=== PATIENT | female | born 1950 | race Caucasian/White ===

== ENCOUNTER 2025-02-04 13:44 | Inpatient (IN) | payer MEDICARE, SELFPAY ==
[2025-02-04] VITALS (19 sets, daily range): BP systolic 119–173; BP diastolic 65–81; PULSE 80–103; RESP 18–37; TEMP 36.7; O2SAT 91–100; BMI 34.1
--- NOTE | ~2025-02-04 | XR_ITS ---
EXAMINATION: XR chest 1V portable DATE: 02/04/2025 15:25 INDICATION: Chest pain TECHNIQUE: frontal view of the chest was obtained. COMPARISON: None FINDINGS: Streaky opacities in the infrahilar left lower lung zone with appearance favoring atelectasis over pneumonia. Remainder the lungs are clear. No pulmonary edema, pleural effusion or pneumothorax. Heart size is normal. Moderate thoracic dextroscoliosis with moderate spondylosis. Anchoring screw at the left humeral head. IMPRESSION: 1. Streaky left infrahilar opacities and favor atelectasis over pneumonia. Reviewed, dictated and finalized at location A. AIL DRIVER
--- NOTE | ~2025-02-04 | US_ITS ---
ULTRASOUND ABDOMEN LIMITED (RIGHT UPPER QUADRANT) Clinical History: hemorrhagic cholecystitis Comparison: CT abdomen pelvis one day prior Technique: Right upper quadrant sonography Findings: Liver: Normal size. Normal echotexture. No intrahepatic biliary ductal dilatation. Normal hepatopedal flow main portal vein. Common Duct: Normal caliber. 4 mm. Gallbladder: Prominent. Filled with heterogeneous material No stones. Wall thickening. No pericholecystic fluid. Positive sonographic Thornton's sign. Pancreas: Obscured by bowel gas. IMPRESSION: 1. Gallbladder slightly dilated and filled with probable hemorrhage. Underlying lesion cannot be excluded. 2. Probable cholecystitis. Reviewed, dictated and finalized at location R. T SORTER IMPRESSION: 1. Gallbladder slightly dilated and filled with probable hemorrhage. Underlyin g lesion cannot be excluded. 2. Probable cholecystitis.
--- NOTE | ~2025-02-04 | CT_ITS ---
EXAMINATION: CT abdomen without contrast: DATE: 02/12/2025. INDICATION: Right upper quadrant pain. History of cholecystitis, status postcholecystectomy. TECHNIQUE: CT was performed without contrast and multiplanar imaging were obtained. COMPARISON: MRCP dated 02/04/2025. Ultrasound abdomen dated 02/05/2025, CT dated 02/04/2025. FINDINGS: Lung bases shows moderate size pleural effusion on the right side. No focal lesions of liver and spleen. Postsurgical changes of cholecystectomy with collection of fluid. The surgical bed suggestive of seroma. No well- circumscribed abscess. No evidence acute findings of the pancreas. No free fluid in the upper peritoneal cavity. IMPRESSION: 1. Limited noncontrast examination is not optimal to evaluate vascular structures and solid viscera. 2. Postsurgical changes of recent cholecystectomy. Ill-defined 4 to 5 cm size collection of fluid at the surgical bed, likely representing postsurgical seroma. No evidence of well-circumscribed abscess. No free fluid or free air in the upper peritoneal cavity. 3. Moderate size right pleural effusion. Reviewed, dictated and finalized at location T. RT EXPORT MANAGER IMPRESSION: 1. Limited noncontrast examination is not optimal to evaluate vascular structur es and solid viscera. 2. Postsurgical changes of recent cholecystectomy. Ill-defined 4 to 5 cm size c ollection of fluid at the surgical bed, likely representing postsurgical seroma . No evidence of well-circumscribed abscess. No free fluid or free air in the u pper peritoneal cavity. 3. Moderate size right pleural effusion.
--- NOTE | ~2025-02-04 | MR_ITS ---
EXAMINATION: MR MRCP wo/w con/w 3D wo ind DATE: 02/06/2025 11:54 INDICATION: Hemorrhagic cholecystitis. TECHNIQUE: Magnetic resonance imaging (MRI) of the abdomen was performed without and with 20 mL Multihance intravenous contrast. Sequences included coronal T2- weighted SS-FSE, coronal T2-weighted FS SS-FSE, coronal T2-weighted FS FIESTA, axial T2-weighted FS FIESTA, axial T2-weighted FIESTA, sagittal T2-weighted SS- FSE, axial T1-weighted dual-echo FSPGR, axial T2-weighted SS-FSE, axial T1- weighted LAVA, axial T2-weighted STIR FSE. Thick-slab T2-weighted FRFSE-XL images were obtained for magnetic resonance cholangiopancreatography (MRCP). Rotating maximum intensity projection 3-D reconstructions of the volumetric data were created by the technologist. Postcontrast sequences included a time course of axial T1-weighted LAVA. COMPARISON: CT dated 02/04/2025 and ultrasound dated 02/05/2025 FINDINGS: ABDOMEN MRI: Small right and very small left pleural effusions with dependent consolidation in both lower lobes with heterogeneous parenchymal enhancement and fibular atelectasis over pneumonia. Mild cardiomegaly. No pericardial effusion. Diffuse periportal edema in the liver along with small amount of perihepatic ascites. There is mild mesenteric edema and upper abdominal body wall edema. The gallbladder is dilated and contains heterogeneous pattern of mixed regions of low T1 and low T2 signal and high T1 and high T2 signal likely representing combination of bile, sludge and blood. There is small amount of surrounding pericholecystic fluid also with high T1 and low T2 signal also consistent with blood. No photopenic gallstones identified. Spleen, pancreas, bilateral adrenal glands and kidneys are normal. Bowels are unremarkable with no obstruction. No pathologically enlarged abdominal lymphadenopathy. 45 degrees thoracolumbar levoscoliosis with moderate to severe spondylosis. ABDOMEN MRCP: No intrahepatic biliary ductal dilation. Common bile duct is normal measuring up to 3 mm in maximal diameter. No filling defects to suggest choledocholithiasis. Main pancreatic duct is also normal in caliber. IMPRESSION: 1. T1 hyperintense likely blood within and surrounding the gallbladder consistent with likely hemorrhagic cholecystitis. No evident cholelithiasis/choledocholithiasis or biliary ductal dilation. 2. Small right and very small left pleural effusions with dependent atelectasis in the bilateral lower lobes. 3. Cardiomegaly. Reviewed, dictated and finalized at location A. SETTER IMPRESSION: 1. T1 hyperintense likely blood within and surrounding the gallbladder consiste nt with likely hemorrhagic cholecystitis. No evident cholelithiasis/choledochol ithiasis or biliary ductal dilation. 2. Small right and very small left pleural effusions with dependent atelectasis in the bilateral lower lobes. 3. Cardiomegaly.
--- NOTE | ~2025-02-04 | CT_ITS ---
EXAMINATION: CT abdomen pelvis w con DATE: 02/04/2025 15:43 INDICATION: Abdominal pain TECHNIQUE: Computed tomography (CT) of the abdomen and pelvis was performed with 100 mL Omnipaque-350 intravenous contrast. Automated exposure control and iterative reconstruction technique were employed. The dose-length product was 996.38 mGy-cm. COMPARISON: None FINDINGS: Very small posterior layering right pleural effusion. Mild atelectasis at the bilateral lung bases. Mild cardiomegaly. Atherosclerotic coronary artery calcific location. No pericardial effusion. Calcified paraesophageal lymph nodes consistent with old granulomatous disease. Potentially refluxed fluid in the distal esophagus. Liver is normal. Stranding surrounding the gallbladder and in the antoni hepatis with heterogeneous high attenuation material within the gallbladder which could represent sludge and/or hemorrhage. Within the gallbladder lumen there is a small amount of serpiginous intraluminal active contrast extravasation. Small of high attenuation material consistent with extraluminal hemorrhage surrounding the gallbladder without evident active contrast extravasation. Small amount of low-attenuation perihepatic ascites with additional small amount of low- attenuation ascites in the deep pelvis. Spleen, pancreas, bilateral adrenal glands and kidneys are normal. Moderate sigmoid diverticulosis without adjacent inflammatory stranding to suggest diverticulitis. No bowel obstruction. Metallic streak artifact associated with bilateral total hip arthroplasties which obscures portions of the bladder and anteverted uterus. 40 degrees thoracolumbar levoscoliosis with severe spondylosis. IMPRESSION: 1. Likely hemorrhagic cholecystitis with intraluminal active contrast extravasation and both intraluminal and pericholecystic hemorrhage. 2. Diverticulosis. Reviewed, dictated and finalized at location A. RIAL ASSISTANT IMPRESSION: 1. Likely hemorrhagic cholecystitis with intraluminal active contrast extravasa tion and both intraluminal and pericholecystic hemorrhage. 2. Diverticulosis.
--- NOTE | ~2025-02-04 | XR_ITS ---
EXAMINATION: XR chest 1V portable COMPARISON: No comparisons available. HISTORY: sob FINDINGS: Small left basilar infiltrate and effusion, moderate right basilar infiltrate and effusion. No pneumothorax. Moderate cardiomegaly. Mediastinal and hilar contours are within normal limits. Bony thorax no acute abnormality. Miscellaneous: None Impression: Bilateral pneumonia Reviewed, dictated and finalized at location P. NISTRATIVE LIBRARY ASSISTANT Impression: Bilateral pneumonia
--- NOTE | ~2025-02-04 | XR_ITS ---
EXAMINATION: XR chest 1V portable COMPARISON: No comparisons available. HISTORY: shortness of breath FINDINGS: Small left basilar infiltrate and effusion. Moderate right basilar infiltrate and effusion. No pneumothorax. Moderate cardiomegaly. Mediastinal and hilar contours are within normal limits. Dextroconvex scoliosis of the thoracic spine. Miscellaneous: None Impression: CHF. Superimposed probable pneumonia. The findings appear improved compared to the previous study Reviewed, dictated and finalized at location P. ERVATION TECHNICIAN Impression: CHF. Superimposed probable pneumonia. The findings appear improved compared to the previous study
--- NOTE | ~2025-02-04 | XR_ITS ---
EXAMINATION: XR chest 1V portable DATE: 02/06/2025 18:02 INDICATION: Wheezing. TECHNIQUE: A single frontal view of the chest was obtained. COMPARISON: Chest x-ray dated 02/04/2025 FINDINGS: Severe scoliosis of the spine. Lungs do not show acute abnormalities or focal nature. Minimal blunting of costophrenic angles suggests minimal pleural effusion on both sides. IMPRESSION: 1. No focal pulmonary lesions. Minimal blunting of costophrenic angle suggestive of minimal bilateral pleural effusion. 2. Severe scoliosis of the spine. Reviewed, dictated and finalized at location T. MENTAL BRONZE WORKER IMPRESSION: 1. No focal pulmonary lesions. Minimal blunting of costophrenic angle suggestiv e of minimal bilateral pleural effusion. 2. Severe scoliosis of the spine.
--- NOTE | ~2025-02-04 | XR_ITS ---
EXAMINATION: Abdomen AP, portable, supine: DATE: 02/08/2025. INDICATION: Rule out obstruction. TECHNIQUE: Supine AP view of the abdomen. were obtained. COMPARISON: CT scan dated 02/04/2025. FINDINGS: Severe scoliosis of thoracolumbar spine. No plain radiographic evidence of mechanical bowel obstruction or supine film. Postoperative changes of cholecystectomy. IMPRESSION: 1. Postsurgical changes of cholecystectomy. No radiographic evidence of mechanical bowel obstruction. 2. Severe scoliosis. Reviewed, dictated and finalized at location T. RMATION SYSTEMS SECURITY DEVELOPER IMPRESSION: 1. Postsurgical changes of cholecystectomy. No radiographic evidence of mechani radha bowel obstruction. 2. Severe scoliosis.
[2025-02-04] MEDS: SODIUM CHLORIDE 0.9% IV 1,000 ML 999 ML IV CONT ×2 (15:17→16:19)
[2025-02-04] MEDS: ONDANSETRON INJ 4 MG/2 ML VIAL IV PUSH ×2 (15:18→16:19)
[2025-02-04] MEDS: HYDROmorphone HCL INJ (*CRX) 1 MG/ML SYR 0.5 MG IV PUSH ×3 (15:19→22:08)
[2025-02-04 15:22] LABS: Hematocrit 43.9 % (37.0-47.0); Hemoglobin 14.6 g/dL (12.0-15.0); Immature Granulocyte Percent A 0.3 % (0-0.5); Lymphocytes Absolute Auto 0.78 K/mm3 (0.9-3.2); Mean Corpuscular HGB Conc 33.3 g/dl (32-36); Mean Corpuscular Hemoglobin 30.7 pg (26-34); Mean Corpuscular Volume 92.4 fl (80-100); Nucleated Red Blood Cells Absolute Auto 0.000 K/mm3 (0.0-0.012); Nucleated Red Blood Cells Perc 0.0 % (0.0-0.2); Platelet Count Result 274 k/mm3 (150-375); Red Blood Count 4.75 M/mm3 (4.2-5.4); White Blood Count 18.3 K/mm3 (4.5-10.0)
[2025-02-04 15:35] LABS: INR 1.4; Partial Thromboplastin Time 26.4 Seconds (22.3-36.8); Prothrombin Time 17.1 Seconds (11.1-14.7)
[2025-02-04 15:37] LABS: Alanine Aminotransferase 34 U/L (6-35); Albumin Level 4.5 g/dL (3.5-5.1); Alkaline Phosphatase 134 U/L (38-126); Anion Gap 10 mmol/L (4-12); Aspartate Amino Transferase 151 U/L (14-36); Bilirubin,Total 2.7 mg/dL (0.2-1.3); Blood Urea Nitrogen 12 mg/dL (7-17); Calcium 9.1 mg/dL (8.4-10.2); Carbon Dioxide 24 mmol/L (22-30); Chloride 101 mmol/L (98-107); Estimated CRCL calculation 76 ml/min; Estimated Glomerular Filt Rate > 60; Glucose 152 mg/dL (65-110); Lipase 58 U/L (23-300); Potassium 4.2 mmol/L (3.4-5.0); Sodium 135 mmol/L (137-145); Total Protein 8.1 g/dL (6.3-8.2)
[2025-02-04 15:49] LABS: NT Pro B Type Natriuretic Pept 1940 pg/mL (19.9-100); Troponin I 0.037 ng/mL (0.000-0.034)
--- NOTE | 2025-02-04 15:50 | ECG_ITS ---
Test Date: 2025-02-04 15:55:38 Measurements Intervals [place] Rate: 92 P: 152 [place]: 155 QRS: -25 QRSD: 101 T: -15 QT: 368 QTc: 457 Interpretive Statements SINUS RHYTHM WITH OCCASIONAL SUPRAVENTRICULAR PREMATURE COMPLEXES POSSIBLE LEFT ATRIAL ENLARGEMENT POSSIBLE ANTERIOR MYOCARDIAL INFARCTION , OF INDETERMINATE AGE Electronically Signed On 02-04-2025 20:03:58 COORDINATOR OF LIBRARY SERVICES by Adrian Early D.O
--- NOTE | 2025-02-04 16:07 | ED.ABDPAIN ---
HPI - Abdominal Pain General Chief Complaint: Back Pain/Injury Stated Complaint: back/abdominal pain Time Seen by Provider: 02/04/25 16:25 Source: patient, family and EMS Mode of arrival: EMS Limitations: no limitations History of Present Illness HPI narrative: 74 years old white female came to the ED by ambulance from home complaining of severe back pain bilaterally above the level of the waist old way to the shoulders sharp, started last night. Patient denies aggravating or relieving factors, associated with nausea and frequent vomiting. Hours later started having diffuse abdominal pain which is sharp. No aggravating or relieving factors. Patient could not be this morning or take her morning medication. History of hyperlipidemia, atrial fibrillation on Xarelto, denies history of abdominal surgery area she denies smoking or drinking or using drugs. Related Data Home Medications ?Medication ?Instructions ?Recorded ?Confirmed ?Last Taken ?Type atorvastatin 10 mg tablet 10 mg PO DAILY 02/04/25 02/04/25 Unknown History carbidopa 25 mg-levodopa 100 mg 1.5 tablet PO QID 02/04/25 02/04/25 02/03/25 History tablet cholecalciferol (vitamin D3) 50 2,000 unit PO DAILY 02/04/25 02/04/25 02/03/25 History mcg (2,000 unit) tablet (D3 DOTS) diltiazem HCl 120 mg tablet 120 mg PO DAILY 02/04/25 02/04/25 02/04/25 History escitalopram oxalate 20 mg tablet 20 mg PO DAILY 02/04/25 02/04/25 Unknown History methylphenidate HCl 36 mg 36 mg PO .every morning 02/04/25 02/04/25 Unknown History tablet,extended release 24 hr metoprolol succinate 200 mg 200 mg PO DAILY 02/04/25 02/04/25 02/04/25 History tablet,extended release 24 hr multivitamin-ferrous 1 tablet PO DAILY 02/04/25 02/04/25 Unknown History fumarate-folic acid 18 mg-400 mcg tablet (Centrum Women) rivaroxaban 20 mg tablet (Xarelto) 20 mg PO Q24H 02/04/25 02/04/25 02/04/25 History Allergies Allergy/AdvReac Type Severity Reaction Status Date / Time No Known Allergies Allergy Verified 02/04/25 21:35 Review of Systems Review of Systems: All systems reviewed & are unremarkable except as noted in HPI and below PMFSH Social History Social History Smoking status: Never smoker Alcohol intake: never Substance use: never Lack of Transportation: No Lack of Food: Never True Current Housing: I Have Housing Concerned About Future Housing: No Difficulty Paying Gas/Electric Bills: No Difficulty Paying for Meds: No Currently Unemployed: No Education: Master's Degree or Higher Difficulty w/ Childcare or Family Care: No Spiritual care concerns: No Exam Narrative: General appearance: Well-developed, well-nourished Skin: Normal color Head: Normocephalic, nontraumatic Eyes: Clear conjunctiva ENT: Oropharynx normal, ears normal, nose normal Neck: Supple, nontender Chest and respiratory: Airway patent, no respiratory distress, no accessory muscle use Heart: Regular rate/rhythm Abdomen: Diffuse abdominal tenderness, positive guarding, rebound, quite bowel sounds Vascular: Normal peripheral pulses, normal capillary refill. Musculoskeletal: Normal range of motion, nontender back Neurologic: Alert and oriented ?3, HEALTH INSPECTOR FOOD is normal as tested, no gross motor deficit Course Consultations Consultation #1: DR GAO Date: 02/04/25 Time: 16:59 Vital Signs Vital signs: Vital Signs Temperature 36.7 C 02/04/25 13:42 Pulse Rate 97 02/04/25 13:42 Respiratory Rate 30 H 02/04/25 13:42 Blood Pressure 151/76 H 02/04/25 13:42 Pulse Oximetry 94 02/04/25 13:42 Oxygen Delivery Room Air 02/04/25 13:42 Temperature 36.7 C 02/04/25 13:42 Pulse Rate 85 02/04/25 22:00 Respiratory Rate 25 H 02/04/25 21:18 Blood Pressure 128/70 02/04/25 21:18 Pulse Oximetry 98 02/04/25 21:18 Oxygen Delivery Nasal Cannula 02/04/25 16:30 Oxygen Flow Rate 2 02/04/25 16:30 MDM - Abdominal Pain MDM Narrative Medical decision making narrative: Patient presents with back pain and abdominal pain Vital signs showing respiratory rate 30 per minute otherwise within normal limit Physical examination consistent with diffuse generalized abdominal tenderness, patient looks L Differential diagnosis include musculoskeletal pain, cholecystitis, appendicitis, diverticulitis, colitis, small-bowel obstruction, urinary tract infection Blood workup today includes CBC, CMP, lipase, lactic acid, pro BMP, coags showed WBC 18.3, PT 17.1 chest the lactic acid 3.2, troponin 0.037, proBNP 1940, total bilirubin 2.7, AST 151, alkaline phosphatase 134 otherwise within normal limit EKG showed normal sinus rhythm physical PVCs he Chest x-ray showed atelectasis versus pneumonia CT abdomen and pelvis with IV contrast showed hemorrhage cholecystitis Zosyn IV started Patient received 2 L of normal saline IV, Dilaudid 0.5 mg x2 and Zofran 4 mg IV x2 Admit to hospitalist, discussed with the surgeon Differential Diagnosis Differential diagnosis: Likely other (As above) Medical Records Attestation: I reviewed the patient's medical records. Lab Data Attestation: I reviewed the patient's lab results. 02/04/25 15:13 02/04/25 15:13 Labs: Lab Results 02/04/25 02/04/25 02/04/25 Range/Units 15:13 15:13 15:13 WBC 18.3 H (4.5-10.0) K/mm3 RBC 4.75 (4.2-5.4) M/mm3 Hgb 14.6 (12.0-15.0) g/dL Hct 43.9 (37.0-47.0) % MCV 92.4 (80-100) fl MCH 30.7 (26-34) pg MCHC 33.3 (32-36) g/dl RDW 13.4 (11.5-14.5) % Plt Count 274 (150-375) k/mm3 MPV 9.3 (7.4-10.4) fl Immature Gran % (Auto) 0.3 (0-0.5) % Neut % (Auto) 87.6 H (45.5-73.1) % Lymph % (Auto) 4.3 L (18.3-44.2) % [place] % (Auto) 7.6 (2.6-8.5) % Eos % (Auto) 0.0 (0-4.4) % Baso % (Auto) 0.2 (0.2-1.2) % Lymph # (Auto) 0.78 L (0.9-3.2) K/mm3 [place] # (Auto) 1.4 H (0.1-0.6) K/mm3 Eos # (Auto) 0.0 (0-0.3) K/mm3 Baso # (Auto) 0.0 (0.0-0.1) K/mm3 Abs Immat Gran (auto) 0.06 H (0.00-0.031) K/mm3 Absolute Neuts (auto) 16.0 H (1.3-6.7) K/mm3 Absolute Nucleated RBC 0.000 (0.0-0.012) K/mm3 Nucleated RBC % 0.0 (0.0-0.2) % PT 17.1 H (11.1-14.7) Seconds INR 1.4 APTT 26.4 (22.3-36.8) Seconds Sodium 135 L (137-145) mmol/L Potassium 4.2 (3.4-5.0) mmol/L Chloride 101 (98-107) mmol/L Carbon Dioxide 24 (22-30) mmol/L Anion Gap 10 (4-12) mmol/L BUN 12 (7-17) mg/dL Creatinine 0.63 L (0.7-1.0) mg/dL Estim Creat Clear Calc 76 ml/min Estimated GFR > 60 (59 - ) Glucose 152 H (65-110) mg/dL Lactic Acid 3.2 H (0.7-2.0) mmol/L Calcium 9.1 (8.4-10.2) mg/dL Total Bilirubin 2.7 H (0.2-1.3) mg/dL AST 151 H (14-36) U/L ALT 34 (6-35) U/L Alkaline Phosphatase 134 H (38-126) U/L Troponin I 0.037 H* Cancelled (0.000-0.034) ng/mL NT-Pro-B Natriuret Pep 1940 H Cancelled (19.9-100) pg/mL Total Protein 8.1 (6.3-8.2) g/dL Albumin 4.5 (3.5-5.1) g/dL Lipase 58 (23-300) U/L Imaging Data Radiologist's impression: ITS Impressions Chest X-Ray 02/04/25 15:27 IMPRESSION: 1. Streaky left infrahilar opacities and favor atelectasis over pneumonia. Abdomen/Pelvis CT 02/04/25 15:44 IMPRESSION: 1. Likely hemorrhagic cholecystitis with intraluminal active contrast extravasation and both intraluminal and pericholecystic hemorrhage. 2. Diverticulosis. ECG Data EKG #1: Attestation: I personally reviewed and interpreted this ECG as follows: ECG completion date: 02/04/25 Interpretation: Normal sinus rhythm at 92 beats per minute with occasional PVCs, left atrial enlargement, anterior myocardial infarction of indeterminate age, no previous EKG available for comparison. Critical Care Time Critical Care Time Critical Care Time: Yes Total Critical Care Time: 30 Discharge Plan Discharge Clinical Impression: Acute cholecystitis, Elevated troponin Patient Disposition: Still a Patient Condition: Stable
[2025-02-04] MEDS: PIPERACILLIN/TAZOBACTAM SOD 3.375 GM in SODIUM CHLORIDE 0.9% IV 50 ML 100 ML IVPB ×2 (16:23→23:40)
--- NOTE | 2025-02-04 16:38 | PC.NURSE ---
per EDP no blood cultures are needed
--- NOTE | 2025-02-04 18:06 | ECG_ITS ---
Test Date: 2025-02-04 18:17:58 Measurements Intervals [place] Rate: 88 P: 54 [place]: 168 QRS: -11 QRSD: 100 T: 13 QT: 364 QTc: 442 Interpretive Statements SINUS RHYTHM LEFT ATRIAL ENLARGEMENT POSSIBLE ANTERIOR MYOCARDIAL INFARCTION , OF INDETERMINATE AGE Electronically Signed On 02-04-2025 20:06:19 RECLAMATION SUPERVISOR by Adrian Early D.O
[2025-02-04] MEDS: SODIUM CHLORIDE 0.9% IV 1,000 ML 150 ML IV CONT (18:23)
[2025-02-04 18:47] LABS: Troponin I 0.030 ng/mL (0.000-0.034)
--- NOTE | 2025-02-04 20:59 | WPCEDHO ---
ED Hand Off Checklist All vitals saved: Yes IV Site documented: Yes All med administrations documented: Yes Triage Note Triage Note pt to ED from home via 02/04/25 13:42 [facility] for c/o back pain, abdominal pain, and L rib pain. EMS reports the back pain started last night that radiates to her abdomen. pt also c/o L rib pain, pt c/o SOB, that radiates across her abdomen. pt also c/o N /V. EMS gave 50mcg of fentanyl IM . EMS got a BG of 129. EMS reports VSS. pt is A&OX4 Allergies No Known Allergies Allergy (Verified 02/04/25 13:56) Active Medications including assessments/comments Sodium Chloride (Normal Saline Iv) 1,000 mls @ 150 mls/hr IV CONT .Q6H40M [facility] Last Admin: 02/04/25 18:23 Dose: 150 mls/hr Documented By: SOFY Infusion/Titration Document 02/04/25 18:23 SOFY (Rec: 02/04/25 18:23 SOFY [id number]) Intake IV Site Peripheral Access Right Forearm Container Volume 1,000 Waste Amount 0 Dosing Infusion Rate 150 Cumulative Dose Not Applicable Increase/Decrease Started Elapsed Time Elapsed Time ( 0m minutes) Administered/Completed Medications Discontinued Medications Hydromorphone HCl (Hydromorphone Hcl Inj (*Crx) 1 Mg/Ml Syr) 0.5 mg IV PUSH ONCE STA Stop: 02/04/25 15:01 Last Admin: 02/04/25 15:19 Dose: 0.5 mg Documented By: SOFY Hydromorphone HCl (Hydromorphone Hcl Inj (*Crx) 1 Mg/Ml Syr) 0.5 mg IV PUSH ONCE STA Stop: 02/04/25 16:09 Last Admin: 02/04/25 16:21 Dose: 0.5 mg Documented By: SOFY Sodium Chloride (Normal Saline Iv) 1,000 mls @ 999 mls/hr IV CONT .Q1H1M STA Stop: 02/04/25 16:00 Last Infusion: 02/04/25 16:18 Dose: Infused Documented By: Admin: 02/04/25 15:17 Dose: 999 mls/hr Documented By: SOFY Piperacillin Sod/Tazobactam (Sod 3.375 gm/ Sodium Chloride) 50 mls @ 100 mls/hr IVPB ONCE ONE Stop: 02/04/25 16:44 Last Infusion: 02/04/25 16:53 Dose: Infused Documented By: Admin: 02/04/25 16:23 Dose: 100 mls/hr Documented By: SOFY Sodium Chloride (Normal Saline Iv) 1,000 mls @ 999 mls/hr IV CONT .Q1H1M STA Stop: 02/04/25 17:11 Last Infusion: 02/04/25 17:03 Dose: Infused Documented By: Admin: 02/04/25 16:19 Dose: 999 mls/hr Documented By: SOFY Ondansetron HCl (Ondansetron Inj 4 Mg/2 Ml Vial) 4 mg IV PUSH ONCE STA Stop: 02/04/25 15:01 Last Admin: 02/04/25 15:18 Dose: 4 mg Documented By: SOFY Ondansetron HCl (Ondansetron Inj 4 Mg/2 Ml Vial) 4 mg IV PUSH ONCE STA Stop: 02/04/25 16:09 Last Admin: 02/04/25 16:19 Dose: 4 mg Documented By: SOFY Notes 02/04/25 16:38 Nurse Note by Chrissy Ballesteros per EDP no blood cultures are needed Initialized on 02/04/25 16:38 - END OF NOTE Interventions/Assessments IV / Saline Lock, Insert Start: 02/04/25 15:00 Freq: STAT Status: Active Protocol: Document 02/04/25 15:16 SOFY (Rec: 02/04/25 15:17 SOFY [id number]) IV Assessment Peripheral Access Right Forearm IV Catheter Access Initiated IV Insertion Date 02/04/25 IV Insertion Time 15:17 Catheter Gauge 20 IV Insertion 2 Attempts Ultrasound Used for No Placement IV Site Assessment WNL IV Care and WNL Maintenance PA: Musculoskeletal Assessment Start: 02/04/25 13:39 Freq: Status: Active Protocol: Document 02/04/25 15:22 SOFY (Rec: 02/04/25 15:22 SOFY [id number]) Musculoskeletal Assessment Back Musculoskeletal Joint Pain With Movement,Muscle Pain,Muscle Pain With Symptoms Movement Limb Description Normal Range of Motion Limited Range of Motion Last Vital Signs Temperature 98.1 F 02/04/25 13:42 Pulse Rate 92 02/04/25 20:15 Respiratory Rate 24 H 02/04/25 20:15 Pulse Oximetry 98 02/04/25 20:15 Blood Pressure 119/81 02/04/25 20:15 Blood Pressure Mean 93 02/04/25 20:15 Blood Pressure Position Supine 02/04/25 18:22 Oxygen Delivery Nasal Cannula 02/04/25 16:30 Oxygen Flow Rate 2 02/04/25 16:30 Weight 97.7 kg 02/04/25 13:42 Last Result - Abnormals Only WBC 18.3 K/mm3 (4.5-10.0) H 02/04/25 15:13 Neut % (Auto) 87.6 % (45.5-73.1) H 02/04/25 15:13 Lymph % (Auto) 4.3 % (18.3-44.2) L 02/04/25 15:13 Lymph # (Auto) 0.78 K/mm3 (0.9-3.2) L 02/04/25 15:13 [place] # (Auto) 1.4 K/mm3 (0.1-0.6) H 02/04/25 15:13 Abs Immat Gran (auto) 0.06 K/mm3 (0.00-0.031) H 02/04/25 15:13 Absolute Neuts (auto) 16.0 K/mm3 (1.3-6.7) H 02/04/25 15:13 PT 17.1 Seconds (11.1-14.7) H 02/04/25 15:13 Sodium 135 mmol/L (137-145) L 02/04/25 15:13 Creatinine 0.63 mg/dL (0.7-1.0) L 02/04/25 15:13 Glucose 152 mg/dL (65-110) H 02/04/25 15:13 Lactic Acid 3.2 mmol/L (0.7-2.0) H 02/04/25 15:13 Total Bilirubin 2.7 mg/dL (0.2-1.3) H 02/04/25 15:13 AST 151 U/L (14-36) H 02/04/25 15:13 Alkaline Phosphatase 134 U/L (38-126) H 02/04/25 15:13 Troponin I 0.037 ng/mL (0.000-0.034) H* 02/04/25 15:13 NT-Pro-B Natriuret Pep 1940 pg/mL (19.9-100) H 02/04/25 15:13 Most Recent Suicide Severity Rating Suicide Severity Rating NO RISK INDICATED 02/04/25 13:42
--- NOTE | 2025-02-04 21:34 | ADMIMU ---
This patient, Natalya De La Rosa, was admitted to IMU status, and placed in IMU Room 232-01 at 2130. Patient oriented to hospital policies and general routines including ID bracelet, bed and alarms, visiting hours, pain management, procedures, bathroom and other care routines, personal items, smoking policy, room service/diet, and visiting hours. Valuables list has been completed. Information on how to activate the Rapid Response Team has been discussed. Patient/Family are encouraged to report perceived risks to care and to ask questions if they do not understand what they are told or what they should do.
[2025-02-04 22:06] LABS: Troponin I 0.024 ng/mL (0.000-0.034)
[2025-02-05] VITALS (21 sets, daily range): BP systolic 107–135; BP diastolic 52–99; PULSE 69–125; RESP 19–24; TEMP 36.3–37.1; O2SAT 89–93
--- OUTSIDE RECORDS SUMMARY | 2025-02-05 01:53 | XMS_ITS | Clinical Summary ---
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 Held from 10/27/11 - can reconsider based on future arrhythmia history if needed to restart. 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 Held from 10/27/11 - can reconsider based on future arrhythmia history if needed to restart. 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 Held from 10/27/11 - can reconsider based on future arrhythmia history if needed to restart. 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 Held from 10/27/11 - can reconsider based on future arrhythmia history if needed to restart. 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 Held from 10/27/11 - can reconsider based on future arrhythmia history if needed to restart. 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 Held from 10/27/11 - can reconsider based on future arrhythmia history if needed to restart. Medications carbidopa-levodo pa (SINEMET) 25-100 mg per tablet Take 1 tablet by mouth 4 times daily. Pt takes TID, written for QID Active docusate 100 mg capsule Take 100 mg by mouth 2 times daily as needed. Active aspirin 81 mg enteric coated tablet Take 81 mg by mouth daily. Active modafinil 200 mg tablet Take 400 mg by mouth daily. Active vortioxetine (TRINTELLIX) 20 mg tablet Take 20 mg by mouth every 72 hours. Active buPROPion HCl (WELLBUTRIN XL) 150 mg extended-release tablet (24 hour) Take 150 mg by mouth every morning. With the 300 mg tablet for a total of 450 mg Active buPROPion HCl (WELLBUTRIN XL) 300 mg extended-release tablet (24 hour) Take 300 mg by mouth every morning. With the 150 mg tablet. For a total of 450 mg Active cholecalciferol (VITAMIN D3) 25 mcg (1,000 unit) capsule Take 25 mcg by mouth daily. Active dilTIAZem (CARDIZEM CD) 180 mg extended release capsule (24 hour) Take 180 mg by mouth daily. Active metoPROLol succinate 100 mg extended release tablet Take 150 mg by mouth daily. Active famotidine (PEPCID PO) Take 1 tablet by mouth daily as needed. Active enoxaparin 40 mg/0.4 mL injection syringe Inject 40 mg subcutaneously. Active omeprazole (PriLOSEC) 40 mg delayed release capsule Take 40 mg by mouth daily. Active ondansetron PO Activ e sennosides 8.6 mg tablet Take 1 tablet by mouth 2 times daily. Active amoxicillin (AMOXIL) 500 mg capsuleIndicatio ns:prophylactic antibiotic Take 4 capsules (2,000 mg total) by mouth once for 1 dose. Take 30-60 minutes before dental or other procedures 4 capsule 11 2 Active acetaminophen (TYLENOL) 325 mg tablet Take 325 mg by mouth. 2 Active bisacodyl (DULCOLAX) 10 mg rectal suppository Insert 10 mg rectally. 3 Active HYDROcodone-acet aminophen 5-325 mg per tablet See Instructions, TAKE 1 TABLET BY MOUTH EVERY 6 HOURS NEEDED FOR PAIN *DO NOT EXCEED 4GM APAP/24HRS*;TA E 2 TABLETS (10-650MG) BY MOUTH EVERY 6 HOURS NEEDED FOR PAIN, # 120 Each, No of Refills: 0, Pharmacy: [facility] 2 Active polyethylene glycol 3350 (MIRALAX) 17 gram/dose powder Take 17 g by mouth. 3 Active Active Problems Problem Noted Date Diagnosed Date Periprosthetic fracture arou nd internal prosthetic left hip joint 02/02/2022 Acute respiratory failure with hypoxia 2 Delirium 02/02/2022 Closed displaced fracture of acetabulum 01/26/20 22 Immunizations Immunization Administration Dates Next Due COVID-19, mRNA (MODERNA) 100mcg/0.5mL 05/07/2020 Influenza 01/24/2014, 3,12/08/2010,2008 Influenza, PF 12/28/2012 Influenza, high dose 03/05/2016,03/04/2015 Influenza, high dose quadrivalent 12/02/2020,08/2019 Influenza, quadrivalent PF 03/09/2022,06/10/2019 ,12/22/2017 Pneumococcal Conjugate, PCV1 3 (Prevnar 13) 09/02/2014 Pneumococcal Polysaccharide, PPSV23 (Pneumovax 23) 03/05/2016 Tdap 03/05/2020,08/31/2013 Zoster, live (Zostavax) 01/24/2014 Social History Tobacco Use Types Packs/Day Years Used Date Smoking Tobacco: Never Smokeless Tobacco: Never Alcohol Use Standard Drinks/Week Comments Not Currently 0 (1 standard drink = 0.6 oz pur e alcohol) Abuse Risk Answer Date Recorded Are you in an UNsafe relationship? Not on file 05/30/2023 Does your partner/boyfriend or girlfriend hit, kick, hurt, or threaten you? Not on file 05/30/2023 Have you suffered any injury as a result of abuse in the past year? Not on file 05/30/2023 Does your partner/boyfriend or girlfriend ever try to control you by threatening you or your family? Not on file 024 Are you currently being forc ed to engage in sexual activity? Not on file 05/30/2023 Are you being abused or thre atened in your work or home environment? Not on file 05/30/2023 Are you being forced to work? Not on file Is the patient a d ependent adult ? Does not apply 05/30/2023 Do you feel unsafe at home? Not on file 05/19 Has anyone tried to force yo u to sign papers or to use your money against your will? Not on file 05/30/2023 Comments Unknown Sex and Gender Information Value Date Recorded Sex Assigned at Not on file Legal Sex Female 2:57 PM METER TESTER PRIMARY Gender Identity Not on file Sexual Orientation Not on file Last Filed Vital Signs Vital Sign Reading Time Taken Comments Blood Pressure 129/70 02/02/2022 7:47 AM METER TESTER PRIMARY Pulse 81 02/02/2022 7:47 AM METER TESTER PRIMARY Temperature 37.5 C (99.5 F) 02/02/2022 7:47 AM METER TESTER PRIMARY Respiratory Rate 16 02/02/2022 2:28 PM METER TESTER PRIMARY Oxygen Saturation 95% 02/02/2022 7:47 AM METER TESTER PRIMARY Inhaled Oxygen Concentration - - Weight 91.4 kg (201 lb 8 oz) 01/26/2022 4:55 PM METER TESTER PRIMARY Height 165.1 cm (5' 5) 01/26/2022 4:55 PM METER TESTER PRIMARY Body Mass Index 33.53 01/26/2022 4:55 PM METER TESTER PRIMARY Plan of Treatment Health Maintenance Due Date Last Done Comments HCV Screening 1967 Lipid Disorder Screening 1970 CT Colonography 1994 Colonoscopy 1994 Colorectal Screening 1994 FIT-DNA 1994 FIT 1994 FOBT 1994 Flex Sigmoidoscopy 1994 Zoster Vaccine (2 of 3) 03/21/2014 01/24/2014 Osteoporosis Screening (DXA Bone Density) 2014 Annual Physical Visit 12/02/2021 12/02/2020, 020 RSV Vaccine (1 - 1-dose 75+ series) 2024 [id number]-2 Vaccine ( season) 2024 05/07/2020 Influenza Vaccine: Seasonal (#1) 11/19/2024 03/09/2022, 12/02/2020, 12/25/2019, Additional history exists Tetanus Diphtheria Pertussis (3 - Td or Tdap) 03/05/2030 03/05/2020, 08/31/2013 Pneumococcal Vaccine Completed 03/05/2016, 09/03/19 15 Medical Devices Implanted Type Area Hospitality Internship Device Identifier Shelf Expiration Date Model / Serial / Lot Cancellous Chips 4-10mm 30cc - [id number] Implanted:Qty: 1 on 01/29/2022 by Oleksandr Carrizales MD at [facility] Tissue Left: Hip [employer] 02/09/2026 [id number] / [id number] / [id number] Scr Pelletier Reflection Spherical Head 20mm - [id number] Implanted:Qty: 1 on 01/29/2022 by Oleksandr Carrizales MD at [facility] Left: Hip [employer] 02/04/2031 [id number] / / [id number] Hip Insert Or30 Dual Mobility 28/42 Xlpe - [id number] Implanted:Qty: 1 on 01/29/2022 by Oleksandr Carrizales MD at [facility] Left: Hip [employer] 10/19/2030 [id number] / / [id number] Hip Liner Or30 Dual Mobility 42/54 - [id number] Implanted:Qty: 1 on 01/29/2022 by Oleksandr Carrizales MD at [facility] Left: Hip [employer] 10/19/2030 [id number] / / [id number] Hip Femoral Head 28mm +4 V40 Cocr Lfit - [id number] Implanted:Qty: 1 on 01/29/2022 by Oleksandr Carrizales MD at [facility] Left: Hip [employer] [id number] 08/17/2025 [id number] / / [id number] Hip Augment Slice Redapt 55z94dd - [id number] Implanted:Qty: 1 on 01/29/2022 by Oleksandr Carrizales MD at [facility] Left: Hip [employer] 04/09/2028 [id number] / [id number] / [id number] Hip Shell Mod Redapt 54mm - [id number] Implanted:Qty: 1 on 01/29/2022 by Oleksandr Carrizales MD at [facility] Left: Hip [employer] 05/12/2031 [id number] / / [id number] Scr Pelletier Reflection Spherical Head 30mm - [id number] Implanted:Qty: 1 on 01/29/2022 by Oleksandr Carrizales MD at [facility] Left: Hip [employer] 02/18/2030 [id number] / / [id number] Scr Pelletier Reflection Spherical Head 20mm - [id number] Implanted:Qty: 1 on 01/29/2022 by Oleksandr Carrizales MD at [facility] Left: Hip [employer] 11/30/2030 [id number] / / [id number] Hip Scr Locking Redapt 15mm - [id number] Implanted:Qty: 1 on 01/29/2022 by Oleksandr Carrizales MD at [facility] Left: Hip [employer] 05/21/2029 [id number] / / [id number] Hip Scr Locking Redapt 15mm - [id number] Implanted:Qty: 1 on 01/29/2022 by Oleksandr Carrizales MD at [facility] Left: Hip [employer] 07/13/2031 [id number] / / [id number] Cement Surgical Simplex P Radiopaque Bone 1/2 Dose - [id number] Implanted:Qty: 1 on 01/29/2022 by Oleksandr Carrizales MD at [facility] Left: Hip [employer] 12/19/2023 [id number] / / [id number] Scr Pelletier Reflection Spherical Head 20mm - [id number] Implanted:Qty: 1 on 01/29/2022 by Oleksandr Carrizales MD at [facility] Left: Hip [employer] 09/24/2031 [id number] / / [id number] Explanted Type Area Hospitality Internship Device Identifier Shelf Expiration Date Model / Serial / Lot 50 Cup, 36-5 Head And Liner Explanted By Sofie Explanted:Qty: 1 on 01/29/2022 by Oleksandr Carrizales MD at [facility] Left: Hip Description:50 Cup, 36-5 Hea d and Liner Explanted by [employer] Insurance [employer] MEDICARE OPEN Advance Directives For more information, please contact: [phone] * Full Code (Latest Code Status on File) Date Activated Date Inactivated Comments 01/26/2022 5:08 PM 02/02/2022 8:30 PM Care Teams Personnel Recruiter Relationship Specialty Start Date End Date Provider, No-Primary Care RALPH PCP - General 01/19/22
--- OUTSIDE RECORDS SUMMARY | 2025-02-05 01:53 | XMS_ITS | Referral Summary ---
Author Organization [facility] Care Address [address] [place] [address] Phone Care Team Providers Care Automation Mechanic Name Role Phone Provider, No-Primary Care Primary Care Provider Unavailable Source Comments This disclosure is being made pursuant to the Care Everywhere program,applicable federal and state laws, and may not contain all informationavailable regarding this patient.[facility] and [facility] Practices Allergies Active Allergy Reactions Criticality Noted [...] 120 Each, No of Refills: 0, Pharmacy: [facility] 2 Active polyethylene glycol 3350 (MIRALAX) [...] on file Legal Sex Female 2:57 PM SALES REPRESENTATIVES Gender Identity Not on file Sexual Orientation Not on file Last Filed Vital Signs Vital Sign Reading Time Taken Comments Blood Pressure 129/70 02/02/2022 7:47 AM SALES REPRESENTATIVES Pulse 81 02/02/2022 7:47 AM SALES REPRESENTATIVES Temperature 37.5 C (99.5 F) 02/02/2022 7:47 AM SALES REPRESENTATIVES Respiratory Rate 16 02/02/2022 2:28 PM SALES REPRESENTATIVES Oxygen Saturation 95% 02/02/2022 7:47 AM SALES REPRESENTATIVES Inhaled Oxygen Concentration - - Weight 91.4 kg (201 lb 8 oz) 01/26/2022 4:55 PM SALES REPRESENTATIVES Height 165.1 cm (5' 5) 01/26/2022 4:55 PM SALES REPRESENTATIVES Body Mass Index 33.53 01/26/2022 4:55 PM SALES REPRESENTATIVES Plan of Treatment Not on file Medical Devices Implanted Type Area Source Inspector Device Identifier Shelf Expiration Date Model / Serial / Lot Cancellous Chips 4-10mm 30cc - [id number] Implanted:Qty: 1 on 01/29/2022 by Oleksandr Carrizales MD at [facility] Tissue Left: Hip [employer] 02/09/2026 [id number] / [id number] / [id number] Scr Pelletier Reflection Spherical Head 20mm - [id number] Implanted:Qty: 1 on 01/29/2022 by Oleksandr Carrizales MD at [facility] Left: Hip [employer] 02/04/2031 [id number] / / [id number] Hip Insert Or30 Dual Mobility 28/42 Xlpe - [id number] Implanted:Qty: 1 on 01/29/2022 by Oleksandr Carrizales MD at [facility] Left: Hip [employer] 10/19/2030 [id number] / / [id number] Hip Liner Or30 Dual Mobility 42/54 - [id number] Implanted:Qty: 1 on 01/29/2022 by Oleksandr Carrizales MD at [facility] Left: Hip [employer] 10/19/2030 [id number] / / [id number] Hip Femoral Head 28mm +4 V40 Cocr Lfit - [id number] Implanted:Qty: 1 on 01/29/2022 by Oleksandr Carrizales MD at [facility] Left: Hip [employer] [id number] 08/17/2025 [id number] / / [id number] Hip Augment Slice Redapt 92d52hs - [id number] Implanted:Qty: 1 on 01/29/2022 by Oleksandr Carrizales MD at [facility] Left: Hip [employer] 04/09/2028 [id number] / [id number] / [id number] Hip Shell Mod Redapt 54mm - [id number] Implanted:Qty: 1 on 01/29/2022 by Oleksandr Carrizales MD at [facility] Left: Hip [employer] 05/12/2031 [id number] / / [id number] Scr Pelletier Reflection Spherical Head 30mm - [id number] Implanted:Qty: 1 on 01/29/2022 by Oleksandr Carrizales MD at [facility] Left: Hip [employer] 02/18/2030 [id number] / / [id number] Scr Pelletier Reflection Spherical Head 20mm - [id number] Implanted:Qty: 1 on 01/29/2022 by Oleksandr Carrizales MD at [facility] Left: Hip [employer] 11/30/2030 [id number] / / [id number] Hip Scr Locking Redapt 15mm - [id number] Implanted:Qty: 1 on 01/29/2022 by Oleksandr Carrizales MD at [facility] Left: Hip [employer] 05/21/2029 [id number] / / [id number] Hip Scr Locking Redapt 15mm - [id number] Implanted:Qty: 1 on 01/29/2022 by Oleksandr Carrizales MD at [facility] Left: Hip [employer] 07/13/2031 [id number] / / [id number] Cement Surgical Simplex P Radiopaque Bone 1/2 Dose - [id number] Implanted:Qty: 1 on 01/29/2022 by Oleksandr Carrizales MD at [facility] Left: Hip [employer] 12/19/2023 [id number] / / [id number] Scr Pelletier Reflection Spherical Head 20mm - [id number] Implanted:Qty: 1 on 01/29/2022 by Oleksandr Carrizales MD at [facility] Left: Hip [employer] 09/24/2031 [id number] / / [id number] Explanted Type Area Source Inspector Device Identifier Shelf Expiration Date Model / Serial / Lot 50 Cup, 36-5 Head And Liner Explanted By Sofie Explanted:Qty: 1 on 01/29/2022 by Oleksandr Carrizales MD at [facility] Left: Hip Description:50 Cup, 36-5 Hea d and Liner Explanted by [employer] Insurance [employer] MEDICARE OPEN Advance Directives For more information, please contact: [phone] * Full Code (Latest Code Status on File) Date Activated Date Inactivated Comments 01/26/2022 5:08 PM 02/02/2022 8:30 PM Care Teams Automation Mechanic Relationship Specialty Start Date End Date Provider, No-Primary Care [place] PCP - General 01/19/22
--- OUTSIDE RECORDS SUMMARY | 2025-02-05 01:54 | XMS_ITS | Clinical Summary ---
Author Organization [facility] Address [address] [place] [address] Care Team Providers Care Order Filler Name Role Phone Demetrius Rausch MD Primary Care Provider [phone] Source Comments This disclosure is being made pursuant to the First Coverage program and maynot contain all information available regarding this patient.[facility] Allergies No known active allergies Medications vitamin D3 (CHOLECALCIFEROL) 25 MCG (1000 UT) capsule Take 1 (one) capsule by mouth daily. Active acetaminophen (TYLENOL) 500 MG tablet Take 1 (one) tablet by mouth as directed. Takes one tablet daily and additional tablets as needed Active carbidopa-levodopa (SINEMET) 25-100 MG per tablet Take 1 tablet by mouth 4 (four) times daily. 023 Active diazepam (VALIUM) 5 MG tabletIndications:P re-operative anxiety Take 1 (one) tablet by mouth once as needed for Anxiety (Take 1 hour before planned procedure). 1 tablet 023 Active certavite w/antioxidants TABS Take 1 tablet by mouth daily. Active methylphenidate (RITALIN) 20 MG tablet Take 1 tablet by mouth daily. 025 Active escitalopram (LEXAPRO) 20 MG tablet Take 1 tablet by mouth daily. 025 Active metoprolol succinate (TOPROL-XL) 200 MG 24 hr tabletIndications:P SVT (paroxysmal supraventricular tachycardia) TAKE ONE TABLET BY MOUTH DAILY 90 tablet 3 025 Active albuterol 108 (90 Base) MCG/ACT inhalerIndications: Acute bronchitis, unspecified organism Inhale 2 (two) puffs into the lungs every 4 (four) hours as needed for Wheezing. 8 g Active diltiazem (DILACOR XR) 120 MG 24 hr capsule Take 120 mg by mouth daily. Active atorvastatin (LIPITOR) 10 MG tabletIndications:D yslipidemia TAKE ONE TABLET BY MOUTH DAILY 90 tablet 4 025 Active Xarelto 20 MG TABS tabletIndications:P aroxysmal atrial fibrillation TAKE ONE TABLET BY MOUTH EVERY DAY 30 tablet 5 025 Active atorvastatin (LIPITOR) 10 MG tabletIndications:D yslipidemia Take 1 (one) tablet (10 mg total) by mouth daily. 90 tablet 4 024 2024 Discontinued Xarelto 20 MG TABS tabletIndications:P aroxysmal atrial fibrillation TAKE ONE TABLET BY MOUTH EVERY DAY 30 tablet 5 025 2024 Discontinued Active Problems Problem Noted Date Diagnosed Date Carpal tunnel syndrome of right wrist 11/16/2022 MDD (major depressive disorder), recurrent episo de, mild 10/25/2022 Sensorineural hearing loss (SNHL) of both ears 0 08/09/2022 Overview (08/09/2022): --Uncontrolled but stable --Refer to audiology for fitting of hearing aids Gastroparesis 05/07/2022 09/17/2022 Delirium 02/02/2022 09/17/2022 Periprosthetic fracture arou nd internal prosthetic left hip joint 02/02/2022 09/17/2022 Closed displaced fracture of acetabulum 01/26/20 22 09/17/2022 Spinal stenosis 12/05/2020 09/17/2022 Gastroesophageal reflux disease 12/02/2020 09/17/2022 Obesity 12/02/2020 09/17/2022 Parkinson disease 10/28/2020 09/17/2022 Early-onset Parkinson's disease 09/30/2020 09/17/2022 Osteoarthrosis 09/30/2020 09/17/2022 Overview (09/17/2022): Of lumbar spine Osteopenia 09/30/2020 09/17/2022 Syncope and collapse 09/27/2019 09/17/2022 Gait difficulty 06/14/2019 09/17/2022 Injury of head 06/09/2019 09/17/2022 Bilateral leg edema 09/29/2018 09/17/2022 Venous insufficiency (chronic) (peripheral) 09/1809/17/2022 PAF (paroxysmal atrial fibrillation) 09/29/2018 09/17/2022 Benign essential tremor 07/05/2018 09/18/19 23 Osteopenia of right hip 12/26/2017 09/18/19 23 Obstructive sleep apnea syndrome 12/22/2017 09/17/2022 Adolescent idiopathic scoliosis of lumbosacral s pine 11/22/2017 09/17/2022 Osteopenia of left forearm 11/22/201709/17 Plantar fasciitis 08/09/2017 09/17/2022 Vitamin D deficiency 07/22/2016 09/17/2022 Benign essential hypertension 03/05/2016 Situational stress 03/05/2016 09/17/2022 Chronic bilateral low back pain without sciatica 09/05/2015 09/17/2022 Spinal stenosis of lumbosacral region 03/04/2015 09/17/2022 Osteoarthritis of lumbar spine 03/04/2014 0 09/17/2022 Esophageal spasm 08/15/2012 09/17/2022 Colon ulcer 09/27/2011 09/17/2022 Overview (09/17/2022): 09/29 - superficial ulcer of the ileocecal valve which is benign tissue Diverticulosis 09/27/2011 09/17/2022 Muscle atrophy of upper extremity 12/21/2010 09/17/2022 Colon polyps 09/01/2010 09/17/2022 Near syncope 07/02/2010 09/17/2022 PSVT (paroxysmal supraventricular tachycardia) 0 06/23/2010 09/17/2022 Depression 08/04/1997 09/17/2022 Resolved Problems Problem Noted Date Diagnosed Date Resolved Date Acute respiratory failure with hypoxia 02/02/202212/21/2024 Shortness of breath 04/24/2021 09/17/2022 12/22/19 25 Sleep apnea 11/28/2006 09/17/2022 12/21/2024 Encounters Date Type Department Care Team Description 01/25/2025 Refill [facility] [address] [facility] [place], [place] [address] Demetrius Rausch MD Dyslipidemia; Paroxysmal atrial fibrillation 12/24/2024 Results Follow-Up [facility] [address] [facility] [place] [address] Brisa Cody ARNP Lipid panel 12/21/2024 1:29 PM CDT - 12/21/2024 11:59 PM CDT Hospital Encounter [facility] [address] [place] [id number] Benign essential tremor; Mixed hyperlipidemia Discharge Disposition: Home - Discharge to Home or Self Care 12/21/2024 1:00 PM CDT Office Visit [facility] [address] [facility] [place] [address] Brisa Cody ARNP Medicare annual wellness visit, subsequent (Primary Dx); Benign essential tremor; Mixed hyperlipidemia; Depression, unspecified depression type; MDD (major depressive disorder), recurrent episode, mild 12/20/2024 Travel 12/06/2024 8:21 AM CDT - 12/06/2024 12:38 PM CDT Hospital Encounter [facility] [address] [place] [address] Nasir Sesay MD Atrial fibrillation Discharge Disposition: Home - Discharge to Home or Self Care 12/06/2024 Travel from Last 3 Months Immunizations Immunization Administration Dates Next Due COVID-19 (MODERNA) mRNA ages 12+ //2 022,02/05/2021,06/04/2020,2020 COVID-19 (PFIZER COMIRNATY) mRNA ages 12+ 12/11/2024 Influenza (FLUAD) aIIV3 11/27/2024 Influenza (FLUZONE HIGH DOSE ) IIV4 PREFILLED SYRINGE 12/02/2020,12/25/2019 Influenza (FLUZONE) Inactiva ryan, Trivalent, 6 months and older, multi-dose vial 0.5 mL 01/24/2014 Influenza High 03/05/2016,03/04/2015 Influenza, Inactivated, Triv alent, 3 years and older, single dose syringe 12/28/2012 Influenza, inactivated, quad rivalent, ALL AGES 6 months and older, single dose syringe/vial 03/09/2022,06/10/2019,12/22/2017 Influenza, unspecified formulation 06/09,12/22/2017,01/24/2014,2012,04/05/2012,12/08/2010,12/19/2008 LIVE Zoster (Zostavax) ZVL 01/24/2014 PPD Test 02/07/2013 Pneumococcal Conjugate-13 (P revnar 13) PCV13 09/02/2014 Pneumococcal Polysaccharide- 23 (Pneumovax 23) PPSV23 03/05/2016 RSV (Arexvy) 11/27/2024 Tdap 03/05/2020,08/31/2013 Zoster (Shingrix) RZV 12/11/2024 Zoster, unspecified formulation 01/24/2014 Family History Medical History Relation Name Comments No Known Problems Maternal Aunt 1 No Known Problems Maternal Aunt 2 No Known Problems Maternal Aunt 3 No Known Problems Maternal Aunt 4 No Known Problems Maternal Aunt 5 No Known Problems Maternal Aunt 6 No Known Problems Maternal Aunt 7 Colon cancer Maternal Grandfather Colon cancer Mother No Known Problems Paternal Aunt Relation Name Status Comments Maternal Aunt 1 Maternal Aunt 2 Maternal Aunt 3 Maternal Aunt 4 Maternal Aunt 5 Maternal Aunt 6 Maternal Aunt 7 Maternal Grandfather Mother Paternal Aunt Social History Tobacco Use Types Packs/Day Years Used Date Smoking Tobacco: Never Smokeless Tobacco: Never Tobacco Cessation:Counseling Given: Not Answered Alcohol Use Standard Drinks/Week Comments Not Currently 0 (1 standard drink = 0.6 oz pur e alcohol) PHQ-2 Answer Date Recorded PHQ-2 Total Score 3 12/21/2024 Comments No Sex and Gender Information Value Date Recorded Sex Assigned at Not on file Legal Sex Female 11:16 AM CDT Gender Identity Female 08/28/2022 9:43 PM CDT Sexual Orientation Straight 08/28/2022 9: 43 PM CDT Last Filed Vital Signs Vital Sign Reading Time Taken Comments Blood Pressure 132/70 12/21/2024 12:53 PM CDT Pulse 89 12/21/2024 12:53 PM CDT Temperature 36.7 C (98 F) 12/21/2024 12:53 PM CDT Respiratory Rate 20 12/21/2024 12:53 PM CDT Oxygen Saturation 93% 12/21/2024 12:53 PM CDT Inhaled Oxygen Concentration - - Weight 97.1 kg (214 lb) 12/21/2024 12:53 PM CDT Height 165.1 cm (5' 5) 12/21/2024 12:53 PM CDT Body Mass Index 35.61 12/21/2024 12:53 PM CDT Plan of Treatment Upcoming Encounters Date Type Department Care Team (Late st Contact Info) Description 06/21/2025 11:00 AM CDT Appointment [facility] [address] [place] [address] Demetrius Rausch MD [address] [place] [address] Health Maintenance Due Date Last Done Comments CT Colonography 1949 Fecal DNA Test 1950 Sigmoidoscopy 1950 FOBT/FIT 1969 Zoster (Shingles) Vaccine 50+ (3 of 3) 02/05/2025 12/11/2024, 01/24/2014, 01/24/2014 COVID-19 Vaccine ( season) 2025 12/11/2024, 10/09/2021, 02/05/2021, Additional history exists Subsequent Medicare Annual Wellness Visit (AWV) 12/21/2025 12/21/2024, 12/21/2023, 10/25/2022, Additional history exists Lab-Cholesterol Screening 12/21/20292024, 12/21/2023, 10/25/2022 Tetanus/Pertussis Vaccine Teen/Adult (3 - Td or Tdap) 03/05/2030 03/05/2020, 08/31/2013 Colonoscopy 04/01/2032 04/01/2022, 04/28/2017 Colorectal Cancer Screening 04/01/2032 Pneumococcal Vaccines 50+ Completed 03/05/2016, Osteoporosis Screening-Bone Density Completed 11/23/2017, 09/17/2013 Lab-Hepatitis C Screening Completed 10/25/2022 Breast Cancer Screening-Mammogram Discontinued 03/16/2024, 02/15/2023, 07/11/2018, Additional history exists Influenza Vaccine Completed 11/27/2024, , 12/02/2020, Additional history exists RSV Adult Completed 11/27/2024 HIB Vaccine Aged Out No longer eligi ble based on patient's age to complete this topic HPV Vaccine (9-26yo & Shared Decision 27-45yo) Aged Out No longer eligi ble based on patient's age to complete this topic Hepatitis A Vaccine Aged Out No longe r eligible based on patient's age to complete this topic IPV Vaccine Aged Out No longer eligi ble based on patient's age to complete this topic Meningococcal Conjugate Vaccine Aged Out No longer eligible based on patient's age to complete this topic RSV < 20 Months Aged Out No longer el igible based on patient's age to complete this topic Procedures Procedure Name Priority Date/Time Associated Diagnosis Comments LIPID PANEL Routine 12/21/2024 1:29 PM CDT Benign essential tremor Mixed hyperlipidemia EKG VIEW RHYTHM STRIP 12/12/2024 1:49 PM CDT EKG 12-LEAD STAT 12/06/2024 12:24 PM CDT PROTIME-INR STAT 12/06/2024 8:59 AM CDT APTT STAT 12/06/2024 8:59 AM CDT CBC AND DIFFERENTIAL STAT 12/06/2024 8:59 AM CDT BASIC METABOLIC PANEL STAT 12/06/2024 8:59 AM CDT EKG 12-LEAD Routine 12/06/2024 8:52 AM CDT CV CARDIOVERSION Routine 12/06/2024 8:20 AM CDT Atrial fibrillation MM CAD DIGITAL BILATERAL SCREENING MAMMOGRAM Routine 03/16/2024 9:00 AM ACTIVE DIRECTORY ENGINEER Screening mammogram for breast cancer HEPATITIS C ANTIBODY Routine 10/25/2022 11:10 AM CDT Encounter for hepatitis C screening test for low risk patient HM COLONOSCOPY Routine 04/01/2022 from Last 3 Months or Most Recently Relevant to Health Maintenance Results * Lipid panel (12/21/2024 1:29 PM CDT) Cholesterol 150 0 - 200 mg/dL 12/21/2024 6:28 PM CDT [facility] Comment: ---- Desirable <200 mg/dL Borderline High 200-239 mg/dL High >=240 mg/dL Triglycerides 109 <150 mg/dL 12/21/2024 6:28 PM CDT [facility] HDL Cholesterol 61 >50 mg/dL 5 6:28 PM CDT [facility] LDL, Calculated 67 <100 mg/dL 5 6:28 PM CDT [facility] Comment: Optimal <100 mg/dL Near Optimal 100-129 mg/dL Borderline High 130-159 mg/dL High 160-189 mg/dL Very High >190 mg/dL VLDL Cholesterol 22 mg/dL 12/22/19 25 6:28 PM CDT [facility] Cholesterol/HDL Ratio 2.5 12/21/2024 6:28 PM CDT [facility] Serum 12/21/2024 1:29 PM CDT 12/21/2024 5:31 PM CDT us Brisa RECINOSP LAB BLOOD ORDERABLES Fi nal Result [facility] [address] [place] [address] [place] [phone] * EKG View Rhythm Strip (12/12/2024 1:49 PM CDT) Narrative 12/12/2024 1:49 PM CDT Ordered by an unspecified provider. us Not In System Provider ECG ORDERABLES Final Res ult * EKG 12-lead (12/06/2024 12:24 PM CDT) Only the most recent of2 resultswithin the time period is included. Heart Rate 55 bpm [facility] LA Interval 261 ms [facility] Frontal [place]:P 61 deg UP Q D [facility] [place] QRS Duration 103 ms [facility] D [facility] QT Interval 463 ms [facility] QT Corrected 443 ms [facility] [place] Frontal [place]: Mean QRS 42 deg [facility] Frontal [place]: Terminal 40 ms. 25 deg [facility] QUAD [facility] Frontal [place] Terminal 40ms. 61 deg [facility] Frontal [place]:T 34 deg [facility] Q D [facility] Frontal [place]: ST 47 deg [facility] 12/06/2024 12:2 4 PM CDT Narrative [facility] - 12/08/2024 6:33 AM CDT Sinus bradycardia Prolonged LA interval Low voltage, precordial leads Confirmed by: Endy Madera 08-Dec-2024 06:33:30 Procedure Note Endy Madera MD - 12/08/2024 Sinus bradycardia Prolonged LA interval Low voltage, precordial leads Confirmed by: Endy Madera 08-Dec-2024 06:33:30 us Nasir Sesay MD ECG ORDERABLES Final Result [facility] * (ABNORMAL) APTT (12/06/2024 8:59 AM CDT) PTT 39.5(H) 22.0 - 34.7 s 12/06/2024 9:20 AM CDT [facility] Plasma 12/06/2024 8:59 AM CDT 12/06/2024 9:04 AM CDT [facility] LAB BLOOD ORDERABLES Fin al Result Performing Organization Address [facility] Co de Phone Number [facility] [address] [place] [phone] * (ABNORMAL) Protime-Inr (12/06/2024 8:59 AM CDT) [facility] Protime 25.9(H) 11.9 - 14.0 s 12/06/2024 9:19 AM CDT [facility] INR 2.5(H) 0.9 - 1.1 12/06/2024 9:19 AM CDT [facility] Comment: (NOTE) Standard intensity warfarin therapeutic range: 2-3 High intensity warfarin therapeutic range: 2.5-3.5 Plasma 12/06/2024 8:59 AM CDT 12/06/2024 9:04 AM CDT [facility] LAB BLOOD ORDERABLES Fin al Result Performing Organization Address [facility] de Phone Number [facility] [address] [place] [phone] * (ABNORMAL) CBC and differential (12/06/2024 8:59 AM CDT) [facility] WBC 5.70 3.60 - 11.00 10*3/uL 12/06/2024 9:08 AM CDT [facility] RBC 4.23 3.92 - 5.13 10*6/uL 12/06/2024 9:08 AM CDT [facility] HGB 13.0 11.6 - 15.0 g/dL 12/06/2024 9:08 AM CDT [facility] HCT 39.9 35.5 - 44.9 % 12/06/2024 9:08 AM CDT [facility] MCV 94.3 78.2 - 97.9 fL 12/06/2024 9:08 AM CDT [facility] MCH 30.7 26 - 34 pg 12/06/2024 9:08 AM CDT [facility] MCHC 32.6 31 - 37 g/dL 12/06/2024 9:08 AM CDT [facility] Platelets 265 130 - 450 10*3/uL 12/06/2024 9:08 AM CDT [facility] RDW-CV 13.0 12.2 - 16.1 % 12/06/2024 9:08 AM CDT [facility] NRBC Absolute 0.00 0 10*3/uL 12/06/2024 9:08 AM CDT [facility] MPV 9.3(L) 9.4 - 12.3 fL 12/06/2024 9:08 AM CDT [facility] Differential Type AUTOMATED DIFFERENTIAL 12/06/2024 9:08 AM CDT [facility] Neutrophil % 51.7 43.0 - 65.0 % 12/06/2024 9:08 AM CDT [facility] Neutrophils Absolute 2.95 1.8 - 7.7 10*3/uL 12/06/2024 9:08 AM CDT [facility] Lymphocytes % 33.9 20.5 - 45.5 % 12/06/2024 9:08 AM CDT [facility] Lymphocytes Absolute 1.93 1.0 - 4.8 10*3/uL 12/06/2024 9:08 AM CDT [facility] Monocyte % 9.6 0.0 - 12.0 % 12/06/2024 9:08 AM CDT [facility] Monos Absolute 0.55 0.26 - 0.81 10*3/uL 12/06/2024 9:08 AM CDT [facility] Eosinophils Relative % 3.7 0.0 - 5.0 % 12/06/2024 9:08 AM CDT [facility] Eosinophils Absolute Count 0.21 0.03 - 0.48 10*3/uL 12/06/2024 9:08 AM CDT [facility] Basophils % 0.9 0.0 - 1.0 % 12/06/2024 9:08 AM CDT [facility] Basophils Absolute 0.05 0.01 - 0.08 10*3/uL 12/06/2024 9:08 AM CDT [facility] Immature Granulocytes% 0.2 0.0 - 0.7 % 12/06/2024 9:08 AM CDT [facility] Immature Granulocytes Absolute 0.01 0.0 - 0.1 10*3/uL 12/06/2024 9:08 AM CDT [facility] Whole Blood 12/06/2024 8:59 AM CDT 12/06/2024 9:04 AM CDT Elida Duron [facility] LAB BLOOD ORDERABLES Fin al Result [facility] [address] [place] [phone] * Basic metabolic panel (12/06/2024 8:59 AM CDT) Sodium 139 136 - 145 mmol/L 12/06/2024 9:24 AM CDT [facility] Potassium 4.3 3.5 - 5.1 mmol/L 12/06/2024 9:24 AM CDT [facility] Chloride 104 98 - 107 mmol/L 12/06/2024 9:24 AM CDT [facility] CO2 26 22 - 29 mmol/L 12/06/2024 9:24 AM CDT [facility] Glucose 116 70 - 140 mg/dL 12/06/2024 9:24 AM CDT [facility] BUN 13 8 - 23 mg/dL 12/06/2024 9:24 AM CDT [facility] Creatinine 0.78 0.51 - 0.95 mg/dL 12/06/2024 9:24 AM CDT [facility] Calcium 9.2 8.8 - 10.2 mg/dL 12/06/2024 9:24 AM CDT [facility] Anion Gap 9 7 - 15 mmol/L 12/06/2024 9:24 AM CDT [facility] BUN/Creatinine Ratio 16.7 12/06/2024 9:24 AM CDT [facility] Osmolality Calculated 289 275 - 295 mosm/kg 12/06/2024 9:24 AM CDT [facility] Creatinine Based eGFR 79 >60 mL/min/[1. 73_m2] 12/06/2024 9:24 AM CDT [facility] Comment:GFR 60-90 Mild decre ased GFR. Serum 12/06/2024 8:59 AM CDT 12/06/2024 9:04 AM CDT us Elida Duron [facility] BLOOD ORDERABLES Fin al Result [facility] [address] [place] [address] [place] [phone] * CV Cardioversion CUPID (12/06/2024 8:20 AM CDT) Anatomical Region Laterality Modality X-Ray Angiograph y Impressions 12/06/2024 12:50 PM CDT Successful DC cardioversion. Nasir Sesay MD 12/06/2024 Narrative 12/06/2024 12:50 PM CDT PROCEDURE: 1. DCCV SEDATION START TIME: 1115 hours SEDATION STOP TIME: 1138 hours INDICATION: Atrial fibrillation FENCE SUPERVISOR: Nasir Sesay MD TEACHER EARLY CHILDHOOD DEVELOPMENT: None ANESTHESIA: IV Versed and Ativan COMPLICATIONS: None. PROCEDURE DETAILS: The nature of the procedure, risks and alternatives were discussed with the patient who gave informed consent. The patient was sedated with 75 mg of IV Fentanyl and 3 mg of IV Versed. Pt was successfully cardioverted to normal sinus rhythm using 300 joules of synchronized biphasic DC current. Patient tolerated the procedure well without any complications. EBL: None SPECIMENS: None Nasir Sesay MD [facility] CV ECHO ORDERABLES Final Re sult * MM CAD Digital Bilateral Screening Mammogram (03/16/2024 9:00 AM ACTIVE DIRECTORY ENGINEER) Anatomical Region Laterality Modality Breast Bilateral Mammography 03/16/2024 9:00 AM ACTIVE DIRECTORY ENGINEER Narrative 03/16/2024 9:09 AM ACTIVE DIRECTORY ENGINEER EXAMINATION TYPE: Screening mammogram HISTORY: screening mammogram; Z12.31-Encounter for screening mammogram for malignant neoplasm of breast. COMPARISON: Comparison is made to prior studies. Technique: The CAD system was used to aid in interpretation. Tomosynthesis was performed. Satisfactory images. Standard views obtained. FINDINGS: There are no new masses, asymmetries, areas of architectural distortion, or suspicious calcifications identified. Stable asymmetries. BREAST TISSUE DENSITY: There are scattered areas of fibroglandular density. ASSESSMENT: * No findings suspicious for malignancy in either breast. * BI-RADS: 2: Benign findings. RECOMMENDATION: Return to routine screening. Electronically signed by: Demetrius Serna MD 03/16/2024 09:[address] [facility] Demetrius Rausch MD IMG MAMMOGRAPHY ORDERABLES Final Result * Hepatitis C antibody (10/25/2022 11:10 AM CDT) Hep C Ab NONREACTIVE NR 10/26/2022 10:22 AM CDT [facility] Comment: Interpretion: Antibodies to HCV not detected. Does not exclude early acute HCV infection. This test was performed by the Hepatitis C Antibody IgG Assay by [employer]. Blood 10/25/2022 11:1 0 AM CDT 10/25/2022 4:26 PM CDT Demetrius Rausch MD LAB BLOOD ORDERABLES Final Result [facility] [address] [place] [address] [place] [phone] * Colonoscopy (04/01/2022) Colonoscopy Comment:Alanis gonzales 04/01/2022 us Not In System Provider HEALTH MAINTENANCE Final Result from Last 3 Months or Most Recently Relevant to Health Maintenance Insurance [employer] MEDICARE PPO Care Teams Order Filler Relationship Specialty Start Date End Date Demetrius Rausch MD [address] [facility] [place] [id number] PCP - General Family Medicine 08/04/22
--- OUTSIDE RECORDS SUMMARY | 2025-02-05 01:54 | XMS_ITS | Encounter Summary ---
Author Organization [facility] Address [address] [place] [address] Care Team Providers Care Channel Installer Name Role Phone Demetrius Rausch MD Primary Care Provider [phone] Encounter Details Date Type Department Care Team ([facility] st Contact Info) Description 12/24/2024 Results Follow-Up [facility] [address] [facility] [place] [id number] Brisa Cody, CRUSHER MACHINE OPERATOR [address] [facility] [place], [place] [id number] Lipid panel Social History Tobacco Use Types Packs/Day Years [...] Orientation Straight 08/28/2022 9: 43 PM CDT documented as of this encounter Functional Status * Are you deaf or do you have serious difficulty hearing? Answer Date of Assessment Author Yes 08/04/2022 10:28 AM CDT Khushboo Das CMA * Do you have serious difficulty walking or climbing stairs? (5 years old or older) Answer Date of Assessment Author Yes 08/04/2022 10:28 AM JAYJAYT Khushboo Das CMA * Do you have difficulty dressing or bathing? (5 years old or older) Answer Date of Assessment Author Yes 08/04/2022 10:28 AM CDT Khushboo Das CMA * Because of a physical, mental, or emotional condition, do you have difficulty doing errands alone such as visiting a doctor's office or shopping? (15 years old or older) Answer Date of Assessment Author Yes 08/04/2022 10:28 AM CDT Khushboo Das CMA documented as of this encounter Mental Status * Because of a physical, mental, or emotional condition, do you have serious difficulty concentrating, remembering, or making decisions? (5 years old or older) Answer Entry Date Author Yes 08/04/2022 10:28 AM CDT Khushboo Das CMA documented in this encounter Plan of Treatment Upcoming Encounters Date Type Department Care Team (Late st Contact Info) Description 06/21/2025 11:00 AM CDT Appointment [facility] [address] [place] [address] Demetrius Rausch MD [address] [place] [address] documented as of this encounter Visit Diagnoses Not on filedocumented in this encounter Additional Health Concerns Assessment Noted Time PHQ-9 Depression Total Score: 8 12/22/19 25 1:22 PM CDT A fall risk assessment has been complete d for the patient 12/21/2024 12:56 PM CDT A Depression follow-up plan has been documented for the patient 12/21/2023 11:09 AM CDT documented as of this encounter Care Teams Channel Installer Relationship Specialty Start Date End Date Demetrius Rausch MD [address] [place] [address] PCP - General Family Medicine 08/04/22 documented as of this encounter
[2025-02-05] MEDS: SODIUM CHLORIDE 0.9% IV 1,000 ML 150 ML IV CONT ×4 (02:11→20:14)
[2025-02-05] MEDS: HYDROmorphone HCL INJ (*CRX) 1 MG/ML SYR 0.5 MG IV PUSH ×5 (02:13→23:41)
--- NOTE | 2025-02-05 03:53 | PM.IMHP ---
H&P: HPI History of Present Illness Date/Time: 02/05/25 03:53 Chief Complaint: Abdominal pain Narrative: This is a 74-year-old female patient who has been complaining of severe back pain and left flank pain. She stated that the pain started in her upper quadrant and radiated to her shoulders that started the previous night prior to coming to the emergency room. She stated that the pain was sharp and she denied any aggravating or relieving factors. She is so states this with nausea and frequent vomiting. The patient was not able to take her morning medications because of not feeling well.. The patient does have a history of having atrial fibrillation and is on Xarelto. Her white count is noted to be 18.3. Neutrophils 87.6. Her lactic initially was 3.2 and is now 1.4. Initial troponin was 0.037, and the 3 hour troponin was 0.030, and a 6 hour troponin was 0.024. Her BNP was noted to be 1940. CT of the pelvis was read as. Likely hemorrhagic cholecystitis with intraluminal active contrast extravasation and both intraluminal and pericholecystic hemorrhage. 2. Diverticulosis. Chest x-ray was read as streaky left infrahilar opacities and favor atelectasis over pneumonia. The patient was started on Zosyn. Surgery has been consulted. The patient was given the dilaudid, Zosyn, and Zofran in the emergency room. The patient is being admitted to inpatient status on 02/05/2025. Review of Systems Constitutional: Constitutional: Reports as per HPI and Reports no additional constitutional complaints Eyes: Eyes: Reports as per HPI and Reports no additional eye complaints ENT: Reports no additional ear, nose, mouth, and throat complaints and Reports Normal hearing present Cardiovascular: Cardiovascular: Reports no additional cardiovascular complaints Respiratory: Respiratory: Reports as per HPI and Reports no additional respiratory complaints Gastrointestinal: Gastrointestinal: Reports as per HPI and Reports no additional gastrointestinal complaints Genitourinary: Genitourinary: Reports no additional female genitourinary complaints Musculoskeletal: Musculoskeletal: Reports no additional musculoskeletal complaints Integumentary/Breasts: Skin/Breast: Reports system reviewed and no additional complaints, except as docu Neurologic: Reports no additional neurologic complaints and Reports Normal hearing present Psychiatric: Psychiatric: Reports no additional psychiatric complaints and Reports as per HPI Hematologic/Lymphatic: Hematologic/Lymphatic: Reports no additional hematologic/lymphatic complaints Allergic/Immunologic: Allergic/Immunologic: Reports no additional allergic/immunologic complaints [facility] Past Medical History Medical History (Updated 02/05/25 @ 04:16 by Carie Jacobson APRN) Obstructive sleep apnea Depression Hypertension Parkinson's disease Hyperlipidemia Atrial fibrillation Surgical History Surgical History (Updated 02/05/25 @ 04:11 by Carie Jacobson APRN) H/O bilateral hip replacements History of bilateral knee replacement H/O repair of rotator cuff History of back surgery Social History Social History (Updated 02/05/25 @ 04:11 by Carie Jacobson APRN) Social History: The patient stated that she was . She has 2 children. She is retired. Code status: Full code. Smoking status: Never smoker Alcohol intake: never Substance use: never Lack of Transportation: No Lack of Food: Never True Current Housing: I Have Housing Concerned About Future Housing: No Difficulty Paying Gas/Electric Bills: No Difficulty Paying for Meds: No Currently Unemployed: No Education: Master's Degree or Higher Difficulty w/ Childcare or Family Care: No Spiritual care concerns: No Meds Home Medications and Allergies Home Medications ?Medication ?Instructions ?Recorded ?Confirmed ?Type atorvastatin 10 mg tablet 10 mg PO DAILY 02/04/25 02/04/25 History carbidopa 25 mg-levodopa 100 mg 1.5 tablet PO QID 02/04/25 02/04/25 History tablet cholecalciferol (vitamin D3) 50 2,000 unit PO DAILY 02/04/25 02/04/25 History mcg (2,000 unit) tablet (D3 DOTS) diltiazem HCl 120 mg tablet 120 mg PO DAILY 02/04/25 02/04/25 History escitalopram oxalate 20 mg tablet 20 mg PO DAILY 02/04/25 02/04/25 History methylphenidate HCl 36 mg 36 mg PO .every morning 02/04/25 02/04/25 History tablet,extended release 24 hr metoprolol succinate 200 mg 200 mg PO DAILY 02/04/25 02/04/25 History tablet,extended release 24 hr multivitamin-ferrous 1 tablet PO DAILY 02/04/25 02/04/25 History fumarate-folic acid 18 mg-400 mcg tablet (Centrum Women) rivaroxaban 20 mg tablet (Xarelto) 20 mg PO Q24H 02/04/25 02/04/25 History Allergies Allergy/AdvReac Type Severity Reaction Status Date / Time No Known Allergies Allergy Verified 02/04/25 21:35 Vital Signs Vital Signs - 24 hr 02/04/25 13:42 02/04/25 13:51 02/04/25 14:46 Temperature 98.1 F Pulse Rate 97 103 H 94 Respiratory Rate 30 H 33 H 37 H Blood Pressure 151/76 H 151/76 H 173/75 H Pulse Oximetry 94 95 Oxygen Delivery Room Air Oxygen Flow Rate 02/04/25 15:01 02/04/25 15:53 02/04/25 16:30 Temperature Pulse Rate 91 98 Respiratory Rate 37 H 25 H Blood Pressure 163/72 H 152/68 H Pulse Oximetry 92 94 Oxygen Delivery Nasal Cannula Oxygen Flow Rate 2 02/04/25 16:31 02/04/25 17:01 02/04/25 17:16 Temperature Pulse Rate 88 88 88 Respiratory Rate 25 H 23 H 23 H Blood Pressure 154/72 H 144/71 H 126/73 Pulse Oximetry 99 99 100 Oxygen Delivery Oxygen Flow Rate 02/04/25 18:22 02/04/25 19:00 02/04/25 19:15 Temperature Pulse Rate 96 88 87 Respiratory Rate 18 25 H 25 H Blood Pressure 137/68 133/70 132/71 Pulse Oximetry 100 98 98 Oxygen Delivery Oxygen Flow Rate 02/04/25 19:30 02/04/25 19:45 02/04/25 20:00 Temperature Pulse Rate 87 93 89 Respiratory Rate 24 H 20 23 H Blood Pressure 123/65 132/68 126/68 Pulse Oximetry 98 98 98 Oxygen Delivery Oxygen Flow Rate 02/04/25 20:15 02/04/25 21:18 02/04/25 22:00 Temperature Pulse Rate 92 92 85 Respiratory Rate 24 H 25 H Blood Pressure 119/81 128/70 Pulse Oximetry 98 98 Oxygen Delivery Oxygen Flow Rate 02/04/25 22:58 02/05/25 00:00 02/05/25 00:00 Temperature 97.7 F Pulse Rate 80 71 71 Respiratory Rate 19 Blood Pressure 120/55 L Pulse Oximetry 91 92 Oxygen Delivery Autopap Oxygen Flow Rate 02/05/25 02:00 02/05/25 03:51 Temperature Pulse Rate 69 71 Respiratory Rate Blood Pressure Pulse Oximetry 93 Oxygen Delivery Autopap Oxygen Flow Rate Exam Const: General: cooperative, healthy appearing, comfortable, no acute distress, well developed, awake, Physically active, average body habitus and well nourished Nutritional Appearance: average body habitus and well nourished Orientation/consciousness: oriented to person, oriented to place, oriented to time and patient oriented x3 Limitations: no limitations HENMT: Head: normal to inspection, No palpable skull fracture present, normocephalic, atraumatic and abrasion Ears: hearing grossly normal bilaterally and external ears normal Eyes: General: appearance normal, both eyes and all related structures Alignment and Position: alignment normal Periorbital: periorbital findings normal Eyelids: eyelids normal EOM: EOMs intact bilaterally Neck: Neck: normal visual inspection and full ROM Chest: Chest palpation & inspection: normal inspection of the chest Resp: Effort & Inspection: normal respiratory effort Auscultation: clear to auscultation bilaterally Cardio: Palpation: normal PMI Rate: regular rate Rhythm: regular rhythm Heart sounds: S1 normal heart sound present and S2 normal heart sound present Peripheral pulses: Peripheral pulses 2+ throughout GI: Inspection: normal to inspection GI Palp: Yes abdominal tenderness (Left upper quadrant) Skin: General skin exam: normal color Lesions: no lesions Rashes: no rashes Trauma: no lacerations or abrasions Wounds: no wounds Hair: normal Nails: normal Neuro: General: oriented to person, oriented to place, oriented to time and patient oriented x3 Cranial nerves: Yes Equal, round and reactive pupils present and Yes Normal hearing present Cognition (Neuro): normal cognition Speech: normal speech Motor exam (neuro): 5/5 motor strength present throughout Sensory Exam: normal sensation Extrem: General: normal to inspection Right upper extremity: normal to inspection and shoulder/upper arm Left upper extremity: normal to inspection and shoulder/upper arm Right lower extremity: normal to inspection Left lower extremity: normal to inspection Psych: Appearance: grossly normal Mental Status: mental status grossly normal Speech and movement: Normal speech and movement present Affect: normal affect Attitude: cooperative Thought process: Normal thought process present Thought content: Yes Normal thought content present Insight: Good insight present (Psych) Judgement: Good judgement present (Psych) H&P: Results Labs Labs: Short CBC 02/04/25 Range/Units 15:13 WBC 18.3 H (4.5-10.0) K/mm3 Hgb 14.6 (12.0-15.0) g/dL Hct 43.9 (37.0-47.0) % Plt Count 274 (150-375) k/mm3 BMP 02/04/25 15:13 Sodium 135 L Potassium 4.2 Chloride 101 Carbon Dioxide 24 BUN 12 Creatinine 0.63 L Glucose 152 H Calcium 9.1 Cardiac Enzymes 02/04/25 02/04/25 02/04/25 Range/Units 15:13 15:13 18:15 Troponin I 0.037 H* Cancelled 0.030 (0.000-0.034) ng/mL 02/04/25 Range/Units 21:36 Troponin I 0.024 (0.000-0.034) ng/mL Liver Function 02/04/25 Range/Units 15:13 Total Bilirubin 2.7 H (0.2-1.3) mg/dL AST 151 H (14-36) U/L ALT 34 (6-35) U/L Alkaline Phosphatase 134 H (38-126) U/L Albumin 4.5 (3.5-5.1) g/dL ECG Interpretation: Test Date: 2025-02-04 18:17:58 Measurements Intervals [place] Rate: 88 P: 54 CO: 168 QRS: -11 QRSD: 100 T: 13 QT: 364 QTc: 442 Interpretive Statements SINUS RHYTHM LEFT ATRIAL ENLARGEMENT POSSIBLE ANTERIOR MYOCARDIAL INFARCTION , OF INDETERMINATE AGE Electronically Signed On 02-04-2025 20:06:19 HOLISTIC SPECIALIST by Adrian Early D.O Imaging CT scan - abdomen: Radiologist's impression: ITS Impressions Chest X-Ray 02/04/25 15:27 IMPRESSION: 1. Streaky left infrahilar opacities and favor atelectasis over pneumonia. Abdomen/Pelvis CT 02/04/25 15:44 IMPRESSION: 1. Likely hemorrhagic cholecystitis with intraluminal active contrast extravasation and both intraluminal and pericholecystic hemorrhage. 2. Diverticulosis. Assessment and Plan Assessment and plan (1) Acute hemorrhagic cholecystitis: Code(s): K81.0 - Acute cholecystitis Status: Acute Assessment and Plan: -Abdomen/Pelvis CT 02/04/25 15:44 IMPRESSION: 1. Likely hemorrhagic cholecystitis with intraluminal active contrast extravasation and both intraluminal and pericholecystic hemorrhage. 2. Diverticulosis. -surgery has been consulted. Further recommendations and considerations would greatly be appreciated. -the patient has a history of AFib and has been on Xarelto. Her Xarelto is currently on hold and no anticoagulation will be started at this time. -her white count was noted to be 18.3. -the patient has been started on Zosyn. -continue with pain management -the patient is NPO except for medications. -continue with IV fluids. (2) Elevated troponin: Code(s): R79.89 - Other specified abnormal findings of blood chemistry Status: Acute Assessment and Plan: -her initial troponin was mildly elevated but has been negative for the last 2. (3) Hypertension: Code(s): I10 - Essential (primary) hypertension Status: Acute Assessment and Plan: -current blood pressure 120/55. -continue with metoprolol if blood pressure allows. (4) Atrial fibrillation: Code(s): I48.91 - Unspecified atrial fibrillation Status: Acute Assessment and Plan: -patient's EKGest Date: 2025-02-04 18:17:58 Measurements Intervals [place] Rate: 88 P: 54 CO: 168 QRS: -11 QRSD: 100 T: 13 QT: 364 QTc: 442 Interpretive Statements SINUS RHYTHM LEFT ATRIAL ENLARGEMENT POSSIBLE ANTERIOR MYOCARDIAL INFARCTION , OF INDETERMINATE AGE Electronically Signed On 02-04-2025 20:06:19 HOLISTIC SPECIALIST by Adrian Early D.O -heart rate is controlled at this time. And she is in sinus rhythm. -continue with metoprolol if blood pressure allows. -Xarelto currently on hold due to hemorrhagic cholecystitis. (5) Hyperlipidemia: Code(s): E78.5 - Hyperlipidemia, unspecified Status: Acute Assessment and Plan: -resume atorvastatin when able. (6) Parkinson's disease: Code(s): G20.A1 - Parkinson's disease without dyskinesia, without mention of fluctuations Status: Acute Assessment and Plan: -continue with carbidopa levodopa (7) Obstructive sleep apnea: Code(s): G47.33 - Obstructive sleep apnea (adult) (pediatric) Status: Acute Assessment and Plan: -auto titrate to home settings. Quality VTE Prophylaxis VTE prophylaxis: mechanical ordered
[2025-02-05] MEDS: PIPERACILLIN/TAZOBACTAM SOD 3.375 GM in SODIUM CHLORIDE 0.9% IV 50 ML 100 ML IVPB ×4 (06:09→23:39)
--- NOTE | 2025-02-05 08:54 | P.PNIM_ITS ---
Progress Note: A&P Assessment and Plan (1) Acute hemorrhagic cholecystitis: Code(s): K81.0 - Acute cholecystitis Status: Acute Assessment and Plan: -Abdomen/Pelvis CT 02/04/25 15:44 IMPRESSION: 1. Likely hemorrhagic cholecystitis with intraluminal active contrast extravasation and both intraluminal and pericholecystic hemorrhage. 2. Diverticulosis. -surgery has been consulted. Further recommendations and considerations would greatly be appreciated. -the patient has a history of AFib and has been on Xarelto. Her Xarelto is currently on hold and no anticoagulation will be started at this time. -her white count was noted to be 18.3. -the patient has been started on Zosyn. -continue with pain management -the patient is NPO except for medications. -continue with IV fluids. (2) Elevated troponin: Code(s): R79.89 - Other specified abnormal findings of blood chemistry Status: Acute Assessment and Plan: -her initial troponin was mildly elevated but has been negative for the last 2. (3) Hypertension: Code(s): I10 - Essential (primary) hypertension Status: Acute Assessment and Plan: -current blood pressure 120/55. -continue with metoprolol if blood pressure allows. (4) Atrial fibrillation: Code(s): I48.91 - Unspecified atrial fibrillation Status: Acute Assessment and Plan: -heart rate is controlled at this time. And she is in sinus rhythm. -continue with metoprolol if blood pressure allows. -Xarelto currently on hold due to hemorrhagic cholecystitis. (5) Hyperlipidemia: Code(s): E78.5 - Hyperlipidemia, unspecified Status: Acute Assessment and Plan: -resume atorvastatin when able. (6) Parkinson's disease: Code(s): G20.A1 - Parkinson's disease without dyskinesia, without mention of fluctuations Status: Acute Assessment and Plan: -continue with carbidopa levodopa (7) Obstructive sleep apnea: Code(s): G47.33 - Obstructive sleep apnea (adult) (pediatric) Status: Acute Assessment and Plan: -auto titrate to home settings. Subjective Date/time seen: 02/05/25 08:54 Interval history: During the evaluation patient daughter was on the phone. Patient will undergo MRCP tomorrow. Initially patient was scheduled for surgery for cholecystectomy. Review of Systems Constitutional: Constitutional: Reports as per HPI and Reports no additional constitutional complaints Eyes: Eyes: Reports as per HPI and Reports no additional eye complaints ENT: Reports system reviewed and no additional complaints, except as documented and Reports Normal hearing present Cardiovascular: Cardiovascular: Reports no additional cardiovascular complaints Respiratory: Respiratory: Reports as per HPI and Reports no additional respiratory complaints Gastrointestinal: Gastrointestinal: Reports as per HPI and Reports no additional gastrointestinal complaints Genitourinary: Genitourinary: Reports no additional female genitourinary complaints Musculoskeletal: Musculoskeletal: Reports no additional musculoskeletal complaints Integumentary/Breasts: Skin/Breast: Reports system reviewed and no additional complaints, except as docu Neurologic: Reports system reviewed and no additional complaints, except as documented and Reports Normal hearing present Psychiatric: Psychiatric: Reports no additional psychiatric complaints and Reports as per HPI Hematologic/Lymphatic: Hematologic/Lymphatic: Reports no additional hematologic/lymphatic complaints Allergic/Immunologic: Allergic/Immunologic: Reports no additional allergic/immunologic complaints Exam Const: General: cooperative, healthy appearing, comfortable, no acute distress, well developed, awake, Physically active, average body habitus and well nourished Nutritional Appearance: average body habitus and well nourished Orientation/consciousness: oriented to person, oriented to place, oriented to time and patient oriented x3 Limitations: no limitations HENMT: Head: normal to inspection, No palpable skull fracture present, normocephalic, atraumatic and abrasion Ears: hearing grossly normal bilaterally and external ears normal Eyes: General: appearance normal, both eyes and all related structures Alignment and Position: alignment normal Periorbital: periorbital findings normal Eyelids: eyelids normal Pupils: Equal, round and reactive pupils present EOM: EOMs intact bilaterally Neck: Neck: normal visual inspection and full ROM Chest: Chest palpation & inspection: normal inspection of the chest Resp: Effort & Inspection: normal respiratory effort Auscultation: clear to auscultation bilaterally Cardio: Palpation: normal PMI Rate: regular rate Rhythm: regular rhythm Heart sounds: S1 normal heart sound present and S2 normal heart sound present Peripheral pulses: Peripheral pulses 2+ throughout GI: Inspection: normal to inspection Skin: General skin exam: normal color Lesions: no lesions Rashes: no rashes Trauma: no lacerations or abrasions Wounds: no wounds Hair: normal Nails: normal Neuro: General: oriented to person, oriented to place, oriented to time and patient oriented x3 Cranial nerves: Yes Equal, round and reactive pupils present and Yes Normal hearing present Cognition (Neuro): normal cognition Speech: normal speech Motor exam (neuro): 5/5 motor strength present throughout Sensory Exam: normal sensation Extrem: General: normal to inspection Right upper extremity: normal to inspection and shoulder/upper arm Left upper extremity: normal to inspection and shoulder/upper arm Right lower extremity: normal to inspection Left lower extremity: normal to inspection Psych: Appearance: grossly normal Mental Status: mental status grossly normal Speech and movement: Normal speech and movement present Affect: normal affect Attitude: cooperative Thought process: Normal thought process present Insight: Good insight present (Psych) Judgement: Good judgement present (Psych) Objective Data Vital Signs Vital Signs: Vital Signs - 24 hr 02/04/25 13:42 02/04/25 13:51 02/04/25 14:46 Temperature 98.1 F Pulse Rate 97 103 H 94 Respiratory Rate 30 H 33 H 37 H Blood Pressure 151/76 H 151/76 H 173/75 H Pulse Oximetry 94 95 Oxygen Delivery Room Air Oxygen Flow Rate 02/04/25 15:01 02/04/25 15:53 02/04/25 16:30 Temperature Pulse Rate 91 98 Respiratory Rate 37 H 25 H Blood Pressure 163/72 H 152/68 H Pulse Oximetry 92 94 Oxygen Delivery Nasal Cannula Oxygen Flow Rate 2 02/04/25 16:31 02/04/25 17:01 02/04/25 17:16 Temperature Pulse Rate 88 88 88 Respiratory Rate 25 H 23 H 23 H Blood Pressure 154/72 H 144/71 H 126/73 Pulse Oximetry 99 99 100 Oxygen Delivery Oxygen Flow Rate 02/04/25 18:22 02/04/25 19:00 02/04/25 19:15 Temperature Pulse Rate 96 88 87 Respiratory Rate 18 25 H 25 H Blood Pressure 137/68 133/70 132/71 Pulse Oximetry 100 98 98 Oxygen Delivery Oxygen Flow Rate 02/04/25 19:30 02/04/25 19:45 02/04/25 20:00 Temperature Pulse Rate 87 93 89 Respiratory Rate 24 H 20 23 H Blood Pressure 123/65 132/68 126/68 Pulse Oximetry 98 98 98 Oxygen Delivery Oxygen Flow Rate 02/04/25 20:15 02/04/25 21:18 02/04/25 22:00 Temperature Pulse Rate 92 92 85 Respiratory Rate 24 H 25 H Blood Pressure 119/81 128/70 Pulse Oximetry 98 98 Oxygen Delivery Oxygen Flow Rate 02/04/25 22:58 02/05/25 00:00 02/05/25 00:00 Temperature 97.7 F Pulse Rate 80 71 71 Respiratory Rate 19 Blood Pressure 120/55 L Pulse Oximetry 91 92 Oxygen Delivery Autopap Oxygen Flow Rate 02/05/25 02:00 02/05/25 03:51 02/05/25 04:00 Temperature 97.4 F L Pulse Rate 69 71 76 Respiratory Rate 24 H Blood Pressure 132/59 L Pulse Oximetry 93 92 Oxygen Delivery Autopap Oxygen Flow Rate 02/05/25 04:00 02/05/25 06:00 02/05/25 07:38 Temperature 98.1 F Pulse Rate 72 70 74 Respiratory Rate 22 H Blood Pressure 119/52 L Pulse Oximetry 91 Oxygen Delivery Oxygen Flow Rate Intake/Output Intake/Output: Intake & Output 02/02/25 02/03/25 02/04/25 02/05/25 23:59 23:59 23:59 23:59 Intake Total 2049 1697.5 Output Total 0 Balance 2049 1697.5 Meds/Results Medications: Active Medications Generic Name Dose Route Start Last Admin Trade Name Freq PRN Reason Stop Dose Admin Carbidopa/Levodopa 1 tablet 02/05/25 09:00 Carbidopa/Levodopa 25/100 Mg Tablet PO QID [facility] Carbidopa/Levodopa 1 tablet 02/05/25 09:00 Carbidopa/Levodopa 12.5/50 Mg Tablet PO QID [facility] Diltiazem HCl 120 mg 02/05/25 09:00 Diltiazem Hcl 60 Mg Tablet PO DAILY [facility] Escitalopram Oxalate 20 mg 02/05/25 09:00 Escitalopram Oxalate 10 Mg Tablet PO DAILY [facility] Hydromorphone HCl 0.5 mg 02/04/25 17:00 02/05/25 06:10 Hydromorphone Hcl Inj (*Crx) 1 Mg/Ml Syr IV PUSH 0.5 mg Q4H PRN Administration Pain Rated 7-10 Piperacillin Sod/Tazobactam 50 mls @ 100 mls/hr 02/05/25 00:00 02/05/25 06:09 Sod 3.375 gm/ Sodium Chloride IVPB 100 mls/hr Q6HR JAZ Administration Sodium Chloride 1,000 mls @ 150 mls/hr 02/04/25 17:00 02/05/25 06:10 Normal Saline Iv IV CONT 150 mls/hr .Q6H40M JAZ Administration Metoprolol Succinate 200 mg 02/05/25 09:00 Metoprolol Succinate Ext Rel 100 Mg Tabcr PO DAILY [facility] Ondansetron HCl 4 mg 02/04/25 17:00 Ondansetron Inj 4 Mg/2 Ml Vial IV PUSH Q4H PRN Nausea Radiology Results: ITS Impressions Chest X-Ray 02/04/25 15:27 IMPRESSION: 1. Streaky left infrahilar opacities and favor atelectasis over pneumonia. Abdomen/Pelvis CT 02/04/25 15:44 IMPRESSION: 1. Likely hemorrhagic cholecystitis with intraluminal active contrast extravasation and both intraluminal and pericholecystic hemorrhage. 2. Diverticulosis. Labs Labs: Laboratory Results - last 24 hr 02/04/25 02/04/25 02/04/25 15:13 15:13 15:13 WBC 18.3 H RBC 4.75 Hgb 14.6 Hct 43.9 MCV 92.4 MCH 30.7 MCHC 33.3 RDW 13.4 Plt Count 274 MPV 9.3 Immature Gran % (Auto) 0.3 Neut % (Auto) 87.6 H Lymph % (Auto) 4.3 L [place] % (Auto) 7.6 Eos % (Auto) 0.0 Baso % (Auto) 0.2 Lymph # (Auto) 0.78 L [place] # (Auto) 1.4 H Eos # (Auto) 0.0 Baso # (Auto) 0.0 Abs Immat Gran (auto) 0.06 H Absolute Neuts (auto) 16.0 H Absolute Nucleated RBC 0.000 Nucleated RBC % 0.0 PT 17.1 H INR 1.4 APTT 26.4 Sodium 135 L Potassium 4.2 Chloride 101 Carbon Dioxide 24 Anion Gap 10 BUN 12 Creatinine 0.63 L Estim Creat Clear Calc 76 Estimated GFR > 60 Glucose 152 H Lactic Acid 3.2 H Calcium 9.1 Total Bilirubin 2.7 H AST 151 H ALT 34 Alkaline Phosphatase 134 H Troponin I 0.037 H* Cancelled NT-Pro-B Natriuret Pep 1940 H Cancelled Total Protein 8.1 Albumin 4.5 Lipase 58 02/04/25 02/04/25 18:15 21:36 WBC RBC Hgb Hct MCV MCH MCHC RDW Plt Count MPV Immature Gran % (Auto) Neut % (Auto) Lymph % (Auto) [place] % (Auto) Eos % (Auto) Baso % (Auto) Lymph # (Auto) [place] # (Auto) Eos # (Auto) Baso # (Auto) Abs Immat Gran (auto) Absolute Neuts (auto) Absolute Nucleated RBC Nucleated RBC % PT INR APTT Sodium Potassium Chloride Carbon Dioxide Anion Gap BUN Creatinine Estim Creat Clear Calc Estimated GFR Glucose Lactic Acid 1.4 Calcium Total Bilirubin AST ALT Alkaline Phosphatase Troponin I 0.030 0.024 NT-Pro-B Natriuret Pep Total Protein Albumin Lipase Quality VTE Prophylaxis VTE prophylaxis: mechanical ordered Hospitalist MIPS Advance Care Plan I have confirmed that the patient's Advanced Care Plan is present, code status is documented, or surrogate decision maker is listed in patient medical record.: Yes Medication Reconciliation I have utilized all available resources to obtain, update and review the patients current medications (includes all prescriptions, OTC, herbals, cannabis, and nutritional supplements).: Yes
[2025-02-05 09:28] LABS: Hematocrit 36.4 % (37.0-47.0); Hemoglobin 11.9 g/dL (12.0-15.0); Mean Corpuscular HGB Conc 32.7 g/dl (32-36); Mean Corpuscular Hemoglobin 30.7 pg (26-34); Mean Corpuscular Volume 93.8 fl (80-100); Platelet Count Result 230 k/mm3 (150-375); Red Blood Count 3.88 M/mm3 (4.2-5.4); White Blood Count 16.5 K/mm3 (4.5-10.0)
--- NOTE | 2025-02-05 09:53 | PM.CNGS ---
Assessment and Plan Assessment and plan (1) Acute hemorrhagic cholecystitis: Code(s): K81.0 - Acute cholecystitis Status: Acute Assessment and Plan: Patient presented to the ED yesterday with complaints of back pain since the night prior with associated nausea and vomiting. She later developed diffuse sharp abdominal pain. Upon admission, labs revealed leukocytosis with white blood cell count 18.3. Normal hemoglobin levels. A CT of the abdomen and pelvis demonstrated likely hemorrhagic cholecystitis with intraluminal active contrast extravasation both intraluminal and pericholecystic hemorrhage. Patient exceptionally tender diffusely throughout abdomen upon exam. Guarding to right upper quadrant. Today's labs revealed a white blood cell count of 16.5. Hemoglobin decreased to 11.9, possibly dilutional. Bilirubin increased to 4.7. Liver enzymes all mildly elevated. MRCP ordered for today. Rule out choledocholithiasis. Keep patient NPO as she will likely need surgical intervention with laparoscopic cholecystitis. (2) Atrial fibrillation: Code(s): I48.91 - Unspecified atrial fibrillation Status: Acute Assessment and Plan: Patient believes she last took her Xarelto yesterday morning. (3) Parkinson's disease: Code(s): G20.A1 - Parkinson's disease without dyskinesia, without mention of fluctuations Status: Acute (4) Obstructive sleep apnea: Code(s): G47.33 - Obstructive sleep apnea (adult) (pediatric) Status: Acute (5) Hypertension: Code(s): I10 - Essential (primary) hypertension Status: Acute Plan Discussed patient's case and plan of care with Dr. Galarza. History of Present Illness Consult details Consult date: 02/05/25 Reason for consult: other (Acute cholecystitis) Requesting physician: Dariel Caldwell MD Narrative: Patient is a 74-year-old female with history of Parkinson's disease (carbidopa/levodopa), hypertension, obstructive sleep apnea, atrial fibrillation (on Xarelto) who we have been asked to see in surgical consultation for acute cholecystitis. Patient states that 2 days ago she began having severe back pain that extended from her waits up to her shoulders. She being having nausea and vomiting due to the pain. States she had about 4 episodes of emesis total. She later developed diffuse sharp abdominal pain and called EMS to bring her to ER. Upon presentation, labs revealed white blood cell count of 18.3. Hemoglobin 14.6. Chest x-ray demonstrated streaky left infrahilar opacities in favor atelectasis over pneumonia. CT of the abdomen and pelvis demonstrated likely hemorrhagic cholecystitis with intraluminal active contrast extravasation and both intraluminal and pericholecystic hemorrhage. Patient started on Zosyn and admitted to the IMU. Patient tachypneic at 25 breaths per minute. Satting low 90s. Placed on Autopap overnight. Patient states that she does wear CPAP/BiPAP overnight, but no oxygen during the day. Denies any trauma to the area, falls, or hits to the abdomen. Denies any history of gallbladder issues. She last had a bowel movement yesterday that was very loose. Denies any hematemesis, hematochezia, or melena. Denies any history of abdominal surgeries. Upon interview, patient cradling right upper quadrant with hand. Appears to be in moderate discomfort. [facility] Past Medical History Medical History (Updated 02/05/25 @ 04:16 by Carie Jacobson APRN) Obstructive sleep apnea Depression Hypertension Parkinson's disease Hyperlipidemia Atrial fibrillation Surgical History Surgical History (Updated 02/05/25 @ 04:11 by Carie Jacobson APRN) H/O bilateral hip replacements History of bilateral knee replacement H/O repair of rotator cuff History of back surgery Social History Social History (Updated 02/05/25 @ 04:11 by Carie Jacobson APRN) Social History: The patient stated that she was . She has 2 children. She is retired. Code status: Full code. Smoking status: Never smoker Alcohol intake: never Substance use: never Lack of Transportation: No Lack of Food: Never True Current Housing: I Have Housing Concerned About Future Housing: No Difficulty Paying Gas/Electric Bills: No Difficulty Paying for Meds: No Currently Unemployed: No Education: Master's Degree or Higher Difficulty w/ Childcare or Family Care: No Spiritual care concerns: No Meds Home Medications and Allergies Home Medications ?Medication ?Instructions ?Recorded ?Confirmed ?Type atorvastatin 10 mg tablet 10 mg PO DAILY 02/04/25 02/04/25 History carbidopa 25 mg-levodopa 100 mg 1.5 tablet PO QID 02/04/25 02/04/25 History tablet cholecalciferol (vitamin D3) 50 2,000 unit PO DAILY 02/04/25 02/04/25 History mcg (2,000 unit) tablet (D3 DOTS) diltiazem HCl 120 mg tablet 120 mg PO DAILY 02/04/25 02/04/25 History escitalopram oxalate 20 mg tablet 20 mg PO DAILY 02/04/25 02/04/25 History methylphenidate HCl 36 mg 36 mg PO .every morning 02/04/25 02/04/25 History tablet,extended release 24 hr metoprolol succinate 200 mg 200 mg PO DAILY 02/04/25 02/04/25 History tablet,extended release 24 hr multivitamin-ferrous 1 tablet PO DAILY 02/04/25 02/04/25 History fumarate-folic acid 18 mg-400 mcg tablet (Centrum Women) rivaroxaban 20 mg tablet (Xarelto) 20 mg PO Q24H 02/04/25 02/04/25 History Allergies Allergy/AdvReac Type Severity Reaction Status Date / Time No Known Allergies Allergy Verified 02/04/25 21:35 Vital Signs Vital Signs - 24 hr 02/04/25 13:42 02/04/25 13:51 02/04/25 14:46 Temperature 98.1 F Pulse Rate 97 103 H 94 Respiratory Rate 30 H 33 H 37 H Blood Pressure 151/76 H 151/76 H 173/75 H Pulse Oximetry 94 95 Oxygen Delivery Room Air Oxygen Flow Rate 02/04/25 15:01 02/04/25 15:53 02/04/25 16:30 Temperature Pulse Rate 91 98 Respiratory Rate 37 H 25 H Blood Pressure 163/72 H 152/68 H Pulse Oximetry 92 94 Oxygen Delivery Nasal Cannula Oxygen Flow Rate 2 02/04/25 16:31 02/04/25 17:01 02/04/25 17:16 Temperature Pulse Rate 88 88 88 Respiratory Rate 25 H 23 H 23 H Blood Pressure 154/72 H 144/71 H 126/73 Pulse Oximetry 99 99 100 Oxygen Delivery Oxygen Flow Rate 02/04/25 18:22 02/04/25 19:00 02/04/25 19:15 Temperature Pulse Rate 96 88 87 Respiratory Rate 18 25 H 25 H Blood Pressure 137/68 133/70 132/71 Pulse Oximetry 100 98 98 Oxygen Delivery Oxygen Flow Rate 02/04/25 19:30 02/04/25 19:45 02/04/25 20:00 Temperature Pulse Rate 87 93 89 Respiratory Rate 24 H 20 23 H Blood Pressure 123/65 132/68 126/68 Pulse Oximetry 98 98 98 Oxygen Delivery Oxygen Flow Rate 02/04/25 20:15 02/04/25 21:18 02/04/25 22:00 Temperature Pulse Rate 92 92 85 Respiratory Rate 24 H 25 H Blood Pressure 119/81 128/70 Pulse Oximetry 98 98 Oxygen Delivery Oxygen Flow Rate 02/04/25 22:58 02/05/25 00:00 02/05/25 00:00 Temperature 97.7 F Pulse Rate 80 71 71 Respiratory Rate 19 Blood Pressure 120/55 L Pulse Oximetry 91 92 Oxygen Delivery Autopap Oxygen Flow Rate 02/05/25 02:00 02/05/25 03:51 02/05/25 04:00 Temperature 97.4 F L Pulse Rate 69 71 76 Respiratory Rate 24 H Blood Pressure 132/59 L Pulse Oximetry 93 92 Oxygen Delivery Autopap Oxygen Flow Rate 02/05/25 04:00 02/05/25 06:00 02/05/25 07:38 Temperature 98.1 F Pulse Rate 72 70 74 Respiratory Rate 22 H Blood Pressure 119/52 L Pulse Oximetry 91 Oxygen Delivery Oxygen Flow Rate Exam Const: General: uncomfortable Other: Cradling right upper quadrant with hand. Eyes: General: appearance normal, both eyes and all related structures Neck: Neck: supple Resp: Effort & Inspection: tachypneic Other: on Autopap Cardio: Rate: regular rate GI: Inspection: distended GI Palp: Yes Firmness to palpation present (GI), Yes Tenderness to palpation present (GI), Yes Guarding due to palpation present (GI) and Yes Rigid due to palpation Auscultation: abnormal bowel sounds (hypoactive) Results Labs 02/05/25 09:20 02/05/25 09:20 Labs: Abnormal lab results 02/04/25 02/05/25 Range/Units 15:13 09:20 WBC 18.3 H 16.5 H (4.5-10.0) K/mm3 RBC 3.88 L (4.2-5.4) M/mm3 Hgb 11.9 L (12.0-15.0) g/dL Hct 36.4 L (37.0-47.0) % Neut % (Auto) 87.6 H (45.5-73.1) % Lymph % (Auto) 4.3 L (18.3-44.2) % Lymph # (Auto) 0.78 L (0.9-3.2) K/mm3 [place] # (Auto) 1.4 H (0.1-0.6) K/mm3 Abs Immat Gran (auto) 0.06 H (0.00-0.031) K/mm3 Absolute Neuts (auto) 16.0 H (1.3-6.7) K/mm3 PT 17.1 H (11.1-14.7) Seconds Sodium 135 L (137-145) mmol/L Creatinine 0.63 L (0.7-1.0) mg/dL Glucose 152 H (65-110) mg/dL Lactic Acid 3.2 H (0.7-2.0) mmol/L Total Bilirubin 2.7 H (0.2-1.3) mg/dL AST 151 H (14-36) U/L Alkaline Phosphatase 134 H (38-126) U/L Troponin I 0.037 H* (0.000-0.034) ng/mL NT-Pro-B Natriuret Pep 1940 H (19.9-100) pg/mL Diabetes panel 02/04/25 Range/Units 15:13 Sodium 135 L (137-145) mmol/L Potassium 4.2 (3.4-5.0) mmol/L Chloride 101 (98-107) mmol/L Carbon Dioxide 24 (22-30) mmol/L BUN 12 (7-17) mg/dL Creatinine 0.63 L (0.7-1.0) mg/dL Glucose 152 H (65-110) mg/dL Calcium 9.1 (8.4-10.2) mg/dL AST 151 H (14-36) U/L ALT 34 (6-35) U/L Alkaline Phosphatase 134 H (38-126) U/L Total Protein 8.1 (6.3-8.2) g/dL Albumin 4.5 (3.5-5.1) g/dL Calcium panel 02/04/25 Range/Units 15:13 Calcium 9.1 (8.4-10.2) mg/dL Albumin 4.5 (3.5-5.1) g/dL Pituitary panel 02/04/25 Range/Units 15:13 Sodium 135 L (137-145) mmol/L Potassium 4.2 (3.4-5.0) mmol/L Chloride 101 (98-107) mmol/L Carbon Dioxide 24 (22-30) mmol/L BUN 12 (7-17) mg/dL Creatinine 0.63 L (0.7-1.0) mg/dL Glucose 152 H (65-110) mg/dL Calcium 9.1 (8.4-10.2) mg/dL Adrenal panel 02/04/25 Range/Units 15:13 Sodium 135 L (137-145) mmol/L Potassium 4.2 (3.4-5.0) mmol/L Chloride 101 (98-107) mmol/L Carbon Dioxide 24 (22-30) mmol/L BUN 12 (7-17) mg/dL Creatinine 0.63 L (0.7-1.0) mg/dL Glucose 152 H (65-110) mg/dL Calcium 9.1 (8.4-10.2) mg/dL Total Bilirubin 2.7 H (0.2-1.3) mg/dL AST 151 H (14-36) U/L ALT 34 (6-35) U/L Alkaline Phosphatase 134 H (38-126) U/L Total Protein 8.1 (6.3-8.2) g/dL Albumin 4.5 (3.5-5.1) g/dL All other labs normal.
[2025-02-05 10:07] LABS: Alanine Aminotransferase 36 U/L (6-35); Albumin Level 3.5 g/dL (3.5-5.1); Alkaline Phosphatase 144 U/L (38-126); Anion Gap 7 mmol/L (4-12); Aspartate Amino Transferase 113 U/L (14-36); Bilirubin,Total 4.7 mg/dL (0.2-1.3); Blood Urea Nitrogen 14 mg/dL (7-17); Calcium 8.0 mg/dL (8.4-10.2); Carbon Dioxide 24 mmol/L (22-30); Chloride 108 mmol/L (98-107); Estimated CRCL calculation 79 ml/min; Estimated Glomerular Filt Rate > 60; Glucose 97 mg/dL (65-110); Potassium 3.3 mmol/L (3.4-5.0); Sodium 139 mmol/L (137-145); Total Protein 6.6 g/dL (6.3-8.2)
[2025-02-05] MEDS: METOPROLOL SUCCINATE EXT REL 100 MG TABCR 200 MG PO (10:38)
[2025-02-05] MEDS: CARBIDOPA/LEVODOPA 25/100 MG TABLET 1 TABLET PO ×2 (17:04→20:15)
[2025-02-05] MEDS: CARBIDOPA/LEVODOPA 12.5/50 MG TABLET 1 TABLET PO ×2 (17:06→20:15)
--- NOTE | 2025-02-05 17:08 | ECG_ITS ---
Test Date: 2025-02-05 17:11:05 Measurements Intervals [place] Rate: 111 P: 0 MI: 0 QRS: -2 QRSD: 98 T: -7 QT: 320 QTc: 437 Interpretive Statements ATRIAL FIBRILLATION WITH RAPID VENTRICULAR RESPONSE LOW QRS VOLTAGE IN PRECORDIAL LEADS Electronically Signed On 02-05-2025 22:30:07 [employer] by Adrian Early D.O
[2025-02-06] VITALS (20 sets, daily range): BP systolic 110–146; BP diastolic 41–104; PULSE 80–117; RESP 17–31; TEMP 36.3–37.3; O2SAT 88–97
--- NOTE | 2025-02-06 00:55 | PC.NURSE ---
low urine ouput tonight reported to Carie Jacobson. Woody Catheter flushed, draining without difficulty. Patient has bipap on now with oxygen bleed in at 4L to keep sats 92%
[2025-02-06 01:22] LABS: Anion Gap 6 mmol/L (4-12); Blood Urea Nitrogen 15 mg/dL (7-17); Calcium 8.0 mg/dL (8.4-10.2); Carbon Dioxide 22 mmol/L (22-30); Chloride 109 mmol/L (98-107); Estimated CRCL calculation 72 ml/min; Estimated Glomerular Filt Rate > 60; Glucose 89 mg/dL (65-110); Potassium 3.2 mmol/L (3.4-5.0); Sodium 137 mmol/L (137-145)
[2025-02-06] MEDS: SODIUM CHLORIDE 0.9% IV 1,000 ML 150 ML IV CONT ×2 (03:31→10:56)
[2025-02-06] MEDS: PIPERACILLIN/TAZOBACTAM SOD 3.375 GM in SODIUM CHLORIDE 0.9% IV 50 ML 100 ML IVPB ×3 (06:01→17:05)
--- NOTE | 2025-02-06 08:49 | P.PNIM_ITS ---
Progress Note: A&P Assessment and Plan (1) Acute hemorrhagic cholecystitis: Code(s): K81.0 - Acute cholecystitis Status: Acute Assessment and Plan: -Abdomen/Pelvis CT 02/04/25 15:44 IMPRESSION: 1. Likely hemorrhagic cholecystitis with intraluminal active contrast extravasation and both intraluminal and pericholecystic hemorrhage. 2. Diverticulosis. -surgery has been consulted. Further recommendations and considerations would greatly be appreciated. -the patient has a history of AFib and has been on Xarelto. Her Xarelto is currently on hold and no anticoagulation will be started at this time. -under went MRCP which shows a hemorrhagic cholecystitis -the patient has been started on Zosyn. -continue with pain management -the patient is NPO except for medications. -continue with IV fluids. (2) Elevated troponin: Code(s): R79.89 - Other specified abnormal findings of blood chemistry Status: Acute Assessment and Plan: -her initial troponin was mildly elevated but has been negative for the last 2. (3) Hypertension: Code(s): I10 - Essential (primary) hypertension Status: Acute Assessment and Plan: -current blood pressure 120/55. -continue with metoprolol if blood pressure allows. (4) Atrial fibrillation: Code(s): I48.91 - Unspecified atrial fibrillation Status: Acute Assessment and Plan: -heart rate is controlled at this time. And she is in sinus rhythm. -continue with metoprolol if blood pressure allows. -Xarelto currently on hold due to hemorrhagic cholecystitis. (5) Hyperlipidemia: Code(s): E78.5 - Hyperlipidemia, unspecified Status: Acute Assessment and Plan: -resume atorvastatin when able. (6) Parkinson's disease: Code(s): G20.A1 - Parkinson's disease without dyskinesia, without mention of fluctuations Status: Acute Assessment and Plan: -continue with carbidopa levodopa (7) Obstructive sleep apnea: Code(s): G47.33 - Obstructive sleep apnea (adult) (pediatric) Status: Acute Assessment and Plan: -auto titrate to home settings. Subjective Date/time seen: 02/06/25 08:49 Interval history: Patient underwent MRCP which is consistent with hemorrhagic cholecystitis. Patient will undergo surgery tomorrow. Nursing reports of dark stool. Will order occult blood and C diff. Review of Systems Constitutional: Constitutional: Reports as per HPI and Reports no additional constitutional complaints Eyes: Eyes: Reports as per HPI and Reports no additional eye complaints ENT: Reports system reviewed and no additional complaints, except as documented and Reports Normal hearing present Cardiovascular: Cardiovascular: Reports no additional cardiovascular complaints Respiratory: Respiratory: Reports as per HPI and Reports no additional respiratory complaints Gastrointestinal: Gastrointestinal: Reports as per HPI and Reports no additional gastrointestinal complaints Genitourinary: Genitourinary: Reports no additional female genitourinary complaints Musculoskeletal: Musculoskeletal: Reports no additional musculoskeletal complaints Integumentary/Breasts: Skin/Breast: Reports system reviewed and no additional complaints, except as docu Neurologic: Reports system reviewed and no additional complaints, except as documented and Reports Normal hearing present Psychiatric: Psychiatric: Reports no additional psychiatric complaints and Reports as per HPI Hematologic/Lymphatic: Hematologic/Lymphatic: Reports no additional hematologic/lymphatic complaints Allergic/Immunologic: Allergic/Immunologic: Reports no additional allergic/immunologic complaints Exam Const: General: cooperative, healthy appearing, comfortable, no acute distress, well developed, awake, Physically active, average body habitus and well nourished Nutritional Appearance: average body habitus and well nourish ed Orientation/consciousness: oriented to person, oriented to place, oriented to time and patient oriented x3 Limitations: no limitations HENMT: Head: normal to inspection, No palpable skull fracture present, normocephalic, atraumatic and abrasion Ears: hearing grossly normal bilaterally and external ears normal Eyes: General: appearance normal, both eyes and all related structures Alignment and Position: alignment normal Periorbital: periorbital findings normal Eyelids: eyelids normal Pupils: Equal, round and reactive pupils present EOM: EOMs intact bilaterally Neck: Neck: normal visual inspection and full ROM Chest: Chest palpation & inspection: normal inspection of the chest Resp: Effort & Inspection: normal respiratory effort Auscultation: clear to auscultation bilaterally Cardio: Palpation: normal PMI Rate: regular rate Rhythm: regular rhythm Heart sounds: S1 normal heart sound present and S2 normal heart sound present Peripheral pulses: Peripheral pulses 2+ throughout GI: Inspection: normal to inspection Skin: General skin exam: normal color Lesions: no lesions Rashes: no rashes Trauma: no lacerations or abrasions Wounds: no wounds Hair: normal Nails: normal Neuro: General: oriented to person, oriented to place, oriented to time and patient oriented x3 Cranial nerves: Yes Equal, round and reactive pupils present and Yes Normal hearing present Cognition (Neuro): normal cognition Speech: normal speech Motor exam (neuro): 5/5 motor strength present throughout Sensory Exam: normal sensation Extrem: General: normal to inspection Right upper extremity: normal to inspection and shoulder/upper arm Left upper extremity: normal to inspection and shoulder/upper arm Right lower extremity: normal to inspection Left lower extremity: normal to inspection Psych: Appearance: grossly normal Mental Status: mental status grossly normal Speech and movement: Normal speech and movement present Affect: normal affect Attitude: cooperative Thought process: Normal thought process present Insight: Good insight present (Psych) Judgement: Good judgement present (Psych) Objective Data Vital Signs Vital Signs: Vital Signs - 24 hr 02/05/25 08:50 02/05/25 08:50 02/05/25 09:30 Temperature Pulse Rate 77 77 79 Respiratory Rate 22 H 24 H Blood Pressure Pulse Oximetry 91 89 L Oxygen Delivery Autopap Nasal Cannula Oxygen Flow Rate 3 Fraction of Inspired Oxygen 02/05/25 10:00 02/05/25 10:00 02/05/25 10:38 Temperature Pulse Rate 71 78 73 Respiratory Rate 22 H Blood Pressure Pulse Oximetry 93 Oxygen Delivery Nasal Cannula Oxygen Flow Rate 4 Fraction of Inspired Oxygen 02/05/25 11:33 02/05/25 12:15 02/05/25 12:15 Temperature 98.1 F Pulse Rate 83 83 74 Respiratory Rate 24 H 24 H Blood Pressure 120/99 H Pulse Oximetry 93 93 Oxygen Delivery Nasal Cannula Oxygen Flow Rate 4 Fraction of Inspired Oxygen 02/05/25 14:00 02/05/25 15:56 02/05/25 16:00 Temperature 98.8 F Pulse Rate 79 109 H 125 H Respiratory Rate 22 H 20 Blood Pressure 135/62 Pulse Oximetry 92 92 Oxygen Delivery Nasal Cannula Oxygen Flow Rate 3 Fraction of Inspired Oxygen 02/05/25 16:00 02/05/25 18:00 02/05/25 19:41 Temperature 97.8 F Pulse Rate 121 H 92 91 Respiratory Rate 24 H Blood Pressure 107/52 L Pulse Oximetry 91 Oxygen Delivery Oxygen Flow Rate Fraction of Inspired Oxygen 02/05/25 20:00 02/05/25 20:00 02/05/25 20:12 Temperature Pulse Rate 84 90 Respiratory Rate 20 Blood Pressure Pulse Oximetry 90 90 Oxygen Delivery Nasal Cannula Nasal Cannula Oxygen Flow Rate 3 3 Fraction of Inspired Oxygen 36 02/05/25 21:09 02/05/25 22:00 02/06/25 00:00 Temperature Pulse Rate 90 96 97 Respiratory Rate Blood Pressure Pulse Oximetry 90 Oxygen Delivery Autopap Oxygen Flow Rate Fraction of Inspired Oxygen 02/06/25 00:00 02/06/25 00:00 02/06/25 02:00 Temperature 97.4 F L Pulse Rate 93 98 Respiratory Rate 20 Blood Pressure 110/56 L Pulse Oximetry 88 L 92 Oxygen Delivery Nasal Cannula Oxygen Flow Rate 3 Fraction of Inspired Oxygen 02/06/25 03:49 02/06/25 04:00 02/06/25 04:00 Temperature 97.7 F Pulse Rate 101 H 115 H Respiratory Rate 17 Blood Pressure 117/74 Pulse Oximetry 94 93 Oxygen Delivery Nasal Cannula Oxygen Flow Rate 4 Fraction of Inspired Oxygen 02/06/25 04:21 02/06/25 04:22 02/06/25 06:20 Temperature Pulse Rate 116 H 116 H 107 H Respiratory Rate 20 Blood Pressure Pulse Oximetry 93 93 Oxygen Delivery Nasal Cannula Nasal Cannula Oxygen Flow Rate 4 Fraction of Inspired Oxygen 36 02/06/25 07:41 02/06/25 07:59 Temperature 98.5 F Pulse Rate 91 Respiratory Rate 31 H Blood Pressure 110/41 L Pulse Oximetry 94 92 Oxygen Delivery Nasal Cannula Oxygen Flow Rate 3 Fraction of Inspired Oxygen Intake/Output Intake/Output: Intake & Output 02/03/25 02/04/25 02/05/25 02/06/25 23:59 23:59 23:59 23:59 Intake Total 2050 3747.5 1170 Output Total 1425 425 Balance 2050 2322.5 745 Meds/Results Medications: Active Medications Generic Name Dose Route Start Last Admin Trade Name Freq PRN Reason Stop Dose Admin Carbidopa/Levodopa 1 tablet 02/05/25 09:00 02/05/25 20:15 Carbidopa/Levodopa 25/100 Mg Tablet PO 1 tablet QID JAZ Administration Carbidopa/Levodopa 1 tablet 02/05/25 09:00 02/05/25 20:15 Carbidopa/Levodopa 12.5/50 Mg Tablet PO 1 tablet QID JAZ Administration Diltiazem HCl 120 mg 02/05/25 09:00 02/05/25 17:03 Diltiazem Hcl 60 Mg Tablet PO 120 mg DAILY JAZ Administration Escitalopram Oxalate 20 mg 02/05/25 09:00 02/05/25 12:40 Escitalopram Oxalate 10 Mg Tablet PO Not Given DAILY JAZ Hydromorphone HCl 0.5 mg 02/04/25 17:00 02/05/25 23:41 Hydromorphone Hcl Inj (*Crx) 1 Mg/Ml Syr IV PUSH 0.5 mg Q4H PRN Administration Pain Rated 7-10 Piperacillin Sod/Tazobactam 50 mls @ 100 mls/hr 02/05/25 00:00 02/06/25 06:01 Sod 3.375 gm/ Sodium Chloride IVPB 100 mls/hr Q6HR JAZ Administration Sodium Chloride 1,000 mls @ 150 mls/hr 02/04/25 17:00 02/06/25 03:31 Normal Saline Iv IV CONT 150 mls/hr .Q6H40M JAZ Administration Lorazepam 0.5 mg 02/06/25 08:14 Lorazepam (*Crx) 0.5 Mg Tablet PO Q6H PRN Anxiety Metoprolol Succinate 200 mg 02/05/25 09:00 02/05/25 10:38 Metoprolol Succinate Ext Rel 100 Mg Tabcr PO 200 mg DAILY JAZ Administration Ondansetron HCl 4 mg 02/04/25 17:00 Ondansetron Inj 4 Mg/2 Ml Vial IV PUSH Q4H PRN Nausea Radiology Results: ITS Impressions Chest X-Ray 02/04/25 15:27 IMPRESSION: 1. Streaky left infrahilar opacities and favor atelectasis over pneumonia. Abdomen/Pelvis CT 02/04/25 15:44 IMPRESSION: 1. Likely hemorrhagic cholecystitis with intraluminal active contrast extravasation and both intraluminal and pericholecystic hemorrhage. 2. Diverticulosis. Abdomen Ultrasound 02/05/25 11:43 IMPRESSION: 1. Gallbladder slightly dilated and filled with probable hemorrhage. Underlying lesion cannot be excluded. 2. Probable cholecystitis. Labs Labs: Laboratory Results - last 24 hr 02/05/25 02/06/25 09:20 01:02 WBC 16.5 H RBC 3.88 L Hgb 11.9 L Hct 36.4 L MCV 93.8 MCH 30.7 MCHC 32.7 RDW 13.9 Plt Count 230 MPV 9.2 Sodium 139 137 Potassium 3.3 L 3.2 L Chloride 108 H 109 H Carbon Dioxide 24 22 Anion Gap 7 6 BUN 14 15 Creatinine 0.64 L 0.71 Estim Creat Clear Calc 79 72 Estimated GFR > 60 > 60 Glucose 97 89 Calcium 8.0 L 8.0 L Total Bilirubin 4.7 H AST 113 H ALT 36 H Alkaline Phosphatase 144 H Total Protein 6.6 Albumin 3.5 Quality VTE Prophylaxis VTE prophylaxis: mechanical ordered Hospitalist MIPS Advance Care Plan I have confirmed that the patient's Advanced Care Plan is present, code status is documented, or surrogate decision maker is listed in patient medical record.: Yes Medication Reconciliation I have utilized all available resources to obtain, update and review the patients current medications (includes all prescriptions, OTC, herbals, cannabis, and nutritional supplements).: Yes
[2025-02-06 08:53] LABS: Hematocrit 34.9 % (37.0-47.0); Hemoglobin 10.9 g/dL (12.0-15.0); Mean Corpuscular HGB Conc 31.2 g/dl (32-36); Mean Corpuscular Hemoglobin 30.7 pg (26-34); Mean Corpuscular Volume 98.3 fl (80-100); Platelet Count Result 209 k/mm3 (150-375); Red Blood Count 3.55 M/mm3 (4.2-5.4); White Blood Count 14.5 K/mm3 (4.5-10.0)
[2025-02-06] MEDS: ESCITALOPRAM OXALATE 10 MG TABLET 20 MG PO (08:54)
[2025-02-06] MEDS: CARBIDOPA/LEVODOPA 25/100 MG TABLET 1 TABLET PO ×4 (08:54→21:01)
[2025-02-06] MEDS: METOPROLOL SUCCINATE EXT REL 100 MG TABCR 200 MG PO (08:55)
[2025-02-06] MEDS: CARBIDOPA/LEVODOPA 12.5/50 MG TABLET 1 TABLET PO ×4 (08:55→21:01)
[2025-02-06 08:58] LABS: Alanine Aminotransferase 16 U/L (6-35); Albumin Level 3.2 g/dL (3.5-5.1); Alkaline Phosphatase 162 U/L (38-126); Aspartate Amino Transferase 118 U/L (14-36); Bilirubin,Total 3.6 mg/dL (0.2-1.3); Total Protein 6.3 g/dL (6.3-8.2)
[2025-02-06] MEDS: HYDROmorphone HCL INJ (*CRX) 1 MG/ML SYR 0.5 MG IV PUSH ×3 (10:24→19:44)
[2025-02-06] MEDS: POTASSIUM CHLORIDE 20 MEQ ER TABLET 40 MEQ PO (10:24)
[2025-02-06] MEDS: LORazepam (*CRX) 0.5 MG TABLET PO (10:24)
--- NOTE | 2025-02-06 11:58 | P.PNGS_ITS ---
Progress Note: A&P Assessment and Plan (1) Acute hemorrhagic cholecystitis: Code(s): K81.0 - Acute cholecystitis Status: Acute Assessment and Plan: * Patient still complaining of severe abdominal pain. WBC downtrending. H/H stable, but slowly decreasing. Bilirubin improving, now at 3.6. Liver enzymes still slightly elevated. * MRCP ordered for today. Rule out choledocholithiasis. Will follow for results and plan intervention accordingly. * Keep patient NPO as she will likely need surgical intervention with laparoscopic cholecystitis. (2) Atrial fibrillation: Code(s): I48.91 - Unspecified atrial fibrillation Status: Acute Assessment and Plan: Patient believes she last took her Xarelto two days ago. Continue to hold. (3) Parkinson's disease: Code(s): G20.A1 - Parkinson's disease without dyskinesia, without mention of fluctuations Status: Acute (4) Obstructive sleep apnea: Code(s): G47.33 - Obstructive sleep apnea (adult) (pediatric) Status: Acute (5) Hypertension: Code(s): I10 - Essential (primary) hypertension Status: Acute Plan Discussed patient's case and plan of care with Dr. Galarza. Subjective Subjective Date/Time Seen: 02/06/25 11:58 Patient reports: still having pain and afebrile Interval history: Patient still complaining of severe abdominal pain. WBC slightly decreased at 14.5. Several BMs yesterdaay. Exam Const: General: uncomfortable GI: Inspection: distended GI Palp: Yes Firmness to palpation present (GI), Yes Tenderness to palpation present (GI) (diffuse tenderness throughout abdomen) and Yes Guarding due to palpation present (GI) Auscultation: normal bowel sounds Objective Data Vital Signs Vital Signs: Vital Signs - 24 hr 02/05/25 12:15 02/05/25 12:15 02/05/25 14:00 Temperature Pulse Rate 83 74 79 Respiratory Rate 24 H Blood Pressure Pulse Oximetry 93 Oxygen Delivery Nasal Cannula Oxygen Flow Rate 4 Fraction of Inspired Oxygen 02/05/25 15:56 02/05/25 16:00 02/05/25 16:00 Temperature 98.8 F Pulse Rate 109 H 125 H 121 H Respiratory Rate 22 H 20 Blood Pressure 135/62 Pulse Oximetry 92 92 Oxygen Delivery Nasal Cannula Oxygen Flow Rate 3 Fraction of Inspired Oxygen 02/05/25 18:00 02/05/25 19:41 02/05/25 20:00 Temperature 97.8 F Pulse Rate 92 91 Respiratory Rate 24 H Blood Pressure 107/52 L Pulse Oximetry 91 90 Oxygen Delivery Nasal Cannula Oxygen Flow Rate 3 Fraction of Inspired Oxygen 02/05/25 20:00 02/05/25 20:12 02/05/25 21:09 Temperature Pulse Rate 84 90 90 Respiratory Rate 20 Blood Pressure Pulse Oximetry 90 90 Oxygen Delivery Nasal Cannula Autopap Oxygen Flow Rate 3 Fraction of Inspired Oxygen 36 02/05/25 22:00 02/06/25 00:00 02/06/25 00:00 Temperature Pulse Rate 96 97 Respiratory Rate Blood Pressure Pulse Oximetry 88 L Oxygen Delivery Nasal Cannula Oxygen Flow Rate 3 Fraction of Inspired Oxygen 02/06/25 00:00 02/06/25 02:00 02/06/25 03:49 Temperature 97.4 F L 97.7 F Pulse Rate 93 98 101 H Respiratory Rate 20 17 Blood Pressure 110/56 L 117/74 Pulse Oximetry 92 94 Oxygen Delivery Oxygen Flow Rate Fraction of Inspired Oxygen 02/06/25 04:00 02/06/25 04:00 02/06/25 04:21 Temperature Pulse Rate 115 H 116 H Respiratory Rate Blood Pressure Pulse Oximetry 93 93 Oxygen Delivery Nasal Cannula Nasal Cannula Oxygen Flow Rate 4 Fraction of Inspired Oxygen 02/06/25 04:22 02/06/25 06:20 02/06/25 07:41 Temperature Pulse Rate 116 H 107 H Respiratory Rate 20 Blood Pressure Pulse Oximetry 93 94 Oxygen Delivery Nasal Cannula Nasal Cannula Oxygen Flow Rate 4 3 Fraction of Inspired Oxygen 36 02/06/25 07:59 Temperature 98.5 F Pulse Rate 91 Respiratory Rate 31 H Blood Pressure 110/41 L Pulse Oximetry 92 Oxygen Delivery Oxygen Flow Rate Fraction of Inspired Oxygen Intake/Output Intake/Output: Intake & Output 02/03/25 02/04/25 02/05/25 02/06/25 23:59 23:59 23:59 23:59 Intake Total 2049 3747.5 2170 Output Total 1425 425 Balance 2050 2322.5 1745 Meds/Results Medications: Active Medications Generic Name Dose Route Start Last Admin Trade Name Freq PRN Reason Stop Dose Admin Carbidopa/Levodopa 1 tablet 02/05/25 09:00 02/06/25 08:54 Carbidopa/Levodopa 25/100 Mg Tablet PO 1 tablet QID JAZ Administration Carbidopa/Levodopa 1 tablet 02/05/25 09:00 02/06/25 08:55 Carbidopa/Levodopa 12.5/50 Mg Tablet PO 1 tablet QID JAZ Administration Diltiazem HCl 120 mg 02/05/25 09:00 02/06/25 08:55 Diltiazem Hcl 60 Mg Tablet PO Not Given DAILY JAZ Escitalopram Oxalate 20 mg 02/05/25 09:00 02/06/25 08:54 Escitalopram Oxalate 10 Mg Tablet PO 20 mg DAILY JAZ Administration Hydromorphone HCl 0.5 mg 02/04/25 17:00 02/06/25 10:24 Hydromorphone Hcl Inj (*Crx) 1 Mg/Ml Syr IV PUSH 0.5 mg Q4H PRN Administration Pain Rated 7-10 Piperacillin Sod/Tazobactam 50 mls @ 100 mls/hr 02/05/25 00:00 02/06/25 06:01 Sod 3.375 gm/ Sodium Chloride IVPB 100 mls/hr Q6HR JAZ Administration Sodium Chloride 1,000 mls @ 150 mls/hr 02/04/25 17:00 02/06/25 10:56 Normal Saline Iv IV CONT 150 mls/hr .Q6H40M JAZ Administration Lorazepam 0.5 mg 02/06/25 08:14 02/06/25 10:24 Lorazepam (*Crx) 0.5 Mg Tablet PO 0.5 mg Q6H PRN Administration Anxiety Metoprolol Succinate 200 mg 02/05/25 09:00 02/06/25 08:55 Metoprolol Succinate Ext Rel 100 Mg Tabcr PO 200 mg DAILY JAZ Administration Ondansetron HCl 4 mg 02/04/25 17:00 Ondansetron Inj 4 Mg/2 Ml Vial IV PUSH Q4H PRN Nausea Radiology Results: ITS Impressions Chest X-Ray 02/04/25 15:27 IMPRESSION: 1. Streaky left infrahilar opacities and favor atelectasis over pneumonia. Abdomen/Pelvis CT 02/04/25 15:44 IMPRESSION: 1. Likely hemorrhagic cholecystitis with intraluminal active contrast extravasation and both intraluminal and pericholecystic hemorrhage. 2. Diverticulosis. Abdomen Ultrasound 02/05/25 11:43 IMPRESSION: 1. Gallbladder slightly dilated and filled with probable hemorrhage. Underlying lesion cannot be excluded. 2. Probable cholecystitis. Labs Labs: Laboratory Results - last 24 hr 02/06/25 01:02 WBC 14.5 H RBC 3.55 L Hgb 10.9 L Hct 34.9 L MCV 98.3 MCH 30.7 MCHC 31.2 L RDW 14.3 Plt Count 209 MPV 10.2 Sodium 137 Potassium 3.2 L Chloride 109 H Carbon Dioxide 22 Anion Gap 6 BUN 15 Creatinine 0.71 Estim Creat Clear Calc 72 Estimated GFR > 60 Glucose 89 Calcium 8.0 L Total Bilirubin 3.6 H Direct Bilirubin 0.5 H AST 118 H ALT 16 Alkaline Phosphatase 162 H Total Protein 6.3 Albumin 3.2 L
[2025-02-06 20:02] LABS: NT Pro B Type Natriuretic Pept 4820 pg/mL (19.9-100)
[2025-02-07] VITALS (32 sets, daily range): BP systolic 113–155; BP diastolic 60–82; PULSE 83–136; RESP 16–28; TEMP 36.3–37.2; O2SAT 94–97
[2025-02-07 00:47] LABS: Anion Gap 6 mmol/L (4-12); Blood Urea Nitrogen 12 mg/dL (7-17); Calcium 8.4 mg/dL (8.4-10.2); Carbon Dioxide 23 mmol/L (22-30); Chloride 109 mmol/L (98-107); Estimated CRCL calculation 74 ml/min; Estimated Glomerular Filt Rate > 60; Glucose 101 mg/dL (65-110); Potassium 3.4 mmol/L (3.4-5.0); Sodium 138 mmol/L (137-145)
[2025-02-07 04:25] LABS: Hematocrit 33.6 % (37.0-47.0); Hemoglobin 10.7 g/dL (12.0-15.0); Mean Corpuscular HGB Conc 31.8 g/dl (32-36); Mean Corpuscular Hemoglobin 30.1 pg (26-34); Mean Corpuscular Volume 94.6 fl (80-100); Platelet Count Result 225 k/mm3 (150-375); Red Blood Count 3.55 M/mm3 (4.2-5.4); White Blood Count 13.0 K/mm3 (4.5-10.0)
[2025-02-07] MEDS: HYDROmorphone HCL INJ (*CRX) 1 MG/ML SYR 0.5 MG IV PUSH ×4 (04:37→21:57)
[2025-02-07 04:38] LABS: Alanine Aminotransferase 9 U/L (6-35); Albumin Level 3.3 g/dL (3.5-5.1); Alkaline Phosphatase 173 U/L (38-126); Anion Gap 7 mmol/L (4-12); Aspartate Amino Transferase 40 U/L (14-36); Bilirubin,Total 2.5 mg/dL (0.2-1.3); Blood Urea Nitrogen 12 mg/dL (7-17); Calcium 8.3 mg/dL (8.4-10.2); Carbon Dioxide 21 mmol/L (22-30); Chloride 110 mmol/L (98-107); Estimated CRCL calculation 83 ml/min; Estimated Glomerular Filt Rate > 60; Glucose 99 mg/dL (65-110); Potassium 3.3 mmol/L (3.4-5.0); Sodium 138 mmol/L (137-145); Total Protein 6.5 g/dL (6.3-8.2)
[2025-02-07] MEDS: PIPERACILLIN/TAZOBACTAM SOD 3.375 GM in SODIUM CHLORIDE 0.9% IV 50 ML 100 ML IVPB ×4 (04:38→17:55)
[2025-02-07] MEDS: CARBIDOPA/LEVODOPA 25/100 MG TABLET 1 TABLET PO ×2 (08:31→12:29)
[2025-02-07] MEDS: ESCITALOPRAM OXALATE 10 MG TABLET 20 MG PO (08:31)
[2025-02-07] MEDS: METOPROLOL SUCCINATE EXT REL 100 MG TABCR 200 MG PO (08:31)
[2025-02-07] MEDS: CARBIDOPA/LEVODOPA 12.5/50 MG TABLET 1 TABLET PO ×2 (08:31→12:29)
--- NOTE | 2025-02-07 08:37 | P.PNIM_ITS ---
Progress Note: A&P Assessment and Plan (1) Acute hemorrhagic cholecystitis: Code(s): K81.0 - Acute cholecystitis Status: Acute Assessment and Plan: -Abdomen/Pelvis CT 02/04/25 15:44 IMPRESSION: 1. Likely hemorrhagic cholecystitis with intraluminal active contrast extravasation and both intraluminal and pericholecystic hemorrhage. 2. Diverticulosis. -surgery has been consulted. Further recommendations and considerations would greatly be appreciated. -the patient has a history of AFib and has been on Xarelto. Her Xarelto is currently on hold and no anticoagulation will be started at this time. -under went MRCP which shows a hemorrhagic cholecystitis -the patient has been started on Zosyn. -continue with pain management -the patient is NPO except for medications. -continue with IV fluids. (2) Elevated troponin: Code(s): R79.89 - Other specified abnormal findings of blood chemistry Status: Acute Assessment and Plan: -her initial troponin was mildly elevated but has been negative for the last 2. (3) Hypertension: Code(s): I10 - Essential (primary) hypertension Status: Acute Assessment and Plan: -current blood pressure 120/55. -continue with metoprolol if blood pressure allows. (4) Atrial fibrillation: Code(s): I48.91 - Unspecified atrial fibrillation Status: Acute Assessment and Plan: -heart rate is controlled at this time. And she is in sinus rhythm. -continue with metoprolol if blood pressure allows. -Xarelto currently on hold due to hemorrhagic cholecystitis. (5) Hyperlipidemia: Code(s): E78.5 - Hyperlipidemia, unspecified Status: Acute Assessment and Plan: -resume atorvastatin when able. (6) Parkinson's disease: Code(s): G20.A1 - Parkinson's disease without dyskinesia, without mention of fluctuations Status: Acute Assessment and Plan: -continue with carbidopa levodopa (7) Obstructive sleep apnea: Code(s): G47.33 - Obstructive sleep apnea (adult) (pediatric) Status: Acute Assessment and Plan: -auto titrate to home settings. Subjective Date/time seen: 02/07/25 08:37 Interval history: Discussed with daughter. Patient will undergo cholecystectomy. Will discuss with the surgery team tomorrow regarding restarting anticoagulation. Patient daughter agrees with stopping anticoagulant for now Review of Systems Constitutional: Constitutional: Reports as per HPI and Reports no additional constitutional complaints Eyes: Eyes: Reports as per HPI and Reports no additional eye complaints ENT: Reports system reviewed and no additional complaints, except as documented and Reports Normal hearing present Cardiovascular: Cardiovascular: Reports no additional cardiovascular complaints Respiratory: Respiratory: Reports as per HPI and Reports no additional respiratory complaints Gastrointestinal: Gastrointestinal: Reports as per HPI and Reports no additi onal gastrointestinal complaints Genitourinary: Genitourinary: Reports no additional female genitourinary complaints Musculoskeletal: Musculoskeletal: Reports no additional musculoskeletal complaints Integumentary/Breasts: Skin/Breast: Reports system reviewed and no additional complaints, except as docu Neurologic: Reports system reviewed and no additional complaints, except as documented and Reports Normal hearing present Psychiatric: Psychiatric: Reports no additional psychiatric complaints and Reports as per HPI Hematologic/Lymphatic: Hematologic/Lymphatic: Reports no additional hematologic/lymphatic complaints Allergic/Immunologic: Allergic/Immunologic: Reports no additional allergic/immunologic complaints Exam Const: General: cooperative, healthy appearing, comfortable, no acute distress, well developed, awake, Physically active, average body habitus and well nourished Nutritional Appearance: average body habitus and well nourished Orientation/consciousness: oriented to person, oriented to place, oriented to time and patient oriented x3 Limitations: no limitations HENMT: Head: normal to inspection, No palpable skull fracture present, normocephalic, atraumatic and abrasion Ears: hearing grossly normal bilaterally and external ears normal Eyes: General: appearance normal, both eyes and all related structures Alignment and Position: alignment normal Periorbital: periorbital findings normal Eyelids: eyelids normal Pupils: Equal, round and reactive pupils present EOM: EOMs intact bilaterally Neck: Neck: normal visual inspection and full ROM Chest: Chest palpation & inspection: normal inspection of the chest Resp: Effort & Inspection: normal respiratory effort Auscultation: clear to auscultation bilaterally Cardio: Palpation: normal PMI Rate: regular rate Rhythm: regular rhythm Heart sounds: S1 normal heart sound present and S2 normal heart sound present Peripheral pulses: Peripheral pulses 2+ throughout GI: Inspection: normal to inspection Skin: General skin exam: normal color Lesions: no lesions Rashes: no rashes Trauma: no lacerations or abrasions Wounds: no wounds Hair: normal Nails: normal Neuro: General: oriented to person, oriented to place, oriented to time and patient oriented x3 Cranial nerves: Yes Equal, round and reactive pupils present and Yes Normal hearing present Cognition (Neuro): normal cognition Speech: normal speech Motor exam (neuro): 5/5 motor strength present throughout Sensory Exam: normal sensation Extrem: General: normal to inspection Right upper extremity: normal to inspection and shoulder/upper arm Left upper extremity: normal to inspection and shoulder/upper arm Right lower extremity: normal to inspection Left lower extremity: normal to inspection Psych: Appearance: grossly normal Mental Status: mental status grossly normal Speech and movement: Normal speech and movement present Affect: normal affect Attitude: cooperative Thought process: Normal thought process present Insight: Good insight present (Psych) Judgement: Good judgement present (Psych) Objective Data Vital Signs Vital Signs: Vital Signs - 24 hr 02/06/25 10:00 02/06/25 12:00 02/06/25 12:00 Temperature 97.7 F Pulse Rate 91 107 H Respiratory Rate 20 Blood Pressure 113/68 Pulse Oximetry 97 93 Oxygen Delivery Nasal Cannula Oxygen Flow Rate 4 02/06/25 12:00 02/06/25 14:00 02/06/25 16:00 Temperature 99.1 F Pulse Rate 111 H 98 115 H Respiratory Rate 26 H Blood Pressure 146/104 H Pulse Oximetry 95 Oxygen Delivery Oxygen Flow Rate 02/06/25 16:00 02/06/25 16:00 02/06/25 18:00 Temperature Pulse Rate 102 H 108 H Respiratory Rate Blood Pressure Pulse Oximetry 93 Oxygen Delivery Nasal Cannula Oxygen Flow Rate 4 02/06/25 18:28 02/06/25 20:00 02/06/25 20:14 Temperature 99.0 F Pulse Rate 107 H 113 H 115 H Respiratory Rate 22 H 22 H Blood Pressure 140/72 Pulse Oximetry 96 Oxygen Delivery Oxygen Flow Rate 02/06/25 22:00 02/06/25 22:08 02/07/25 00:00 Temperature Pulse Rate 110 H 117 H 120 H Respiratory Rate Blood Pressure Pulse Oximetry 90 Oxygen Delivery Autopap Oxygen Flow Rate 02/07/25 00:07 02/07/25 02:00 02/07/25 02:19 Temperature 98.9 F Pulse Rate 114 H 105 H 107 H Respiratory Rate 20 Blood Pressure 153/73 H Pulse Oximetry 95 96 Oxygen Delivery Autopap Oxygen Flow Rate 02/07/25 04:00 02/07/25 04:27 02/07/25 06:00 Temperature 98.7 F Pulse Rate 106 H 102 H 100 Respiratory Rate 22 H Blood Pressure 150/71 H Pulse Oximetry 94 Oxygen Delivery Oxygen Flow Rate 02/07/25 07:34 02/07/25 07:34 02/07/25 07:39 Temperature Pulse Rate 114 H 114 H 119 H Respiratory Rate 21 H 21 H Blood Pressure Pulse Oximetry 97 Oxygen Delivery Nasal Cannula Oxygen Flow Rate 3 02/07/25 08:00 Temperature 97.8 F Pulse Rate 136 H Respiratory Rate 28 H Blood Pressure 155/63 H Pulse Oximetry 96 Oxygen Delivery Oxygen Flow Rate Intake/Output Intake/Output: Intake & Output 02/04/25 02/05/25 02/06/25 02/07/25 23:59 23:59 23:59 23:59 Intake Total 2050 3747.5 2390 650 Output Total 1425 925 600 Balance 2050 2322.5 1465 50 Meds/Results Medications: Active Medications Generic Name Dose Route Start Last Admin Trade Name Freq PRN Reason Stop Dose Admin Carbidopa/Levodopa 1 tablet 02/05/25 09:00 02/07/25 08:31 Carbidopa/Levodopa 25/100 Mg Tablet PO 1 tablet QID JAZ Administration Carbidopa/Levodopa 1 tablet 02/05/25 09:00 02/07/25 08:31 Carbidopa/Levodopa 12.5/50 Mg Tablet PO 1 tablet QID JAZ Administration Diltiazem HCl 120 mg 02/05/25 09:00 02/07/25 08:31 Diltiazem Hcl 60 Mg Tablet PO 120 mg DAILY JAZ Administration Escitalopram Oxalate 20 mg 02/05/25 09:00 02/07/25 08:31 Escitalopram Oxalate 10 Mg Tablet PO 20 mg DAILY JAZ Administration Hydromorphone HCl 0.5 mg 02/04/25 17:00 02/07/25 04:37 Hydromorphone Hcl Inj (*Crx) 1 Mg/Ml Syr IV PUSH 0.5 mg Q4H PRN Administration Pain Rated 7-10 Piperacillin Sod/Tazobactam 50 mls @ 100 mls/hr 02/05/25 00:00 02/07/25 05:53 Sod 3.375 gm/ Sodium Chloride IVPB 100 mls/hr Q6HR JAZ Administration Levalbuterol HCl 1.25 mg 02/06/25 18:00 02/07/25 07:33 Levalbuterol Neb 1.25 Mg/3 Ml INHALATION 1.25 mg Q6HRT JAZ Administration Lorazepam 0.5 mg 02/06/25 08:14 02/06/25 10:24 Lorazepam (*Crx) 0.5 Mg Tablet PO 0.5 mg Q6H PRN Administration Anxiety Metoprolol Succinate 200 mg 02/05/25 09:00 02/07/25 08:31 Metoprolol Succinate Ext Rel 100 Mg Tabcr PO 200 mg DAILY JAZ Administration Ondansetron HCl 4 mg 02/04/25 17:00 Ondansetron Inj 4 Mg/2 Ml Vial IV PUSH Q4H PRN Nausea Radiology Results: ITS Impressions Abdomen/Pelvis CT 02/04/25 15:44 IMPRESSION: 1. Likely hemorrhagic cholecystitis with intraluminal active contrast extravasation and both intraluminal and pericholecystic hemorrhage. 2. Diverticulosis. Abdomen Ultrasound 02/05/25 11:43 IMPRESSION: 1. Gallbladder slightly dilated and filled with probable hemorrhage. Underlying lesion cannot be excluded. 2. Probable cholecystitis. MRCP 02/06/25 11:59 IMPRESSION: 1. T1 hyperintense likely blood within and surrounding the gallbladder consistent with likely hemorrhagic cholecystitis. No evident cholelithiasis/choledocholithiasis or biliary ductal dilation. 2. Small right and very small left pleural effusions with dependent atelectasis in the bilateral lower lobes. 3. Cardiomegaly. Chest X-Ray 02/06/25 18:03 IMPRESSION: 1. No focal pulmonary lesions. Minimal blunting of costophrenic angle suggestive of minimal bilateral pleural effusion. 2. Severe scoliosis of the spine. Labs Labs: Laboratory Results - last 24 hr 02/06/25 02/07/25 02/07/25 01:02 00:27 04:10 WBC 14.5 H 13.0 H RBC 3.55 L 3.55 L Hgb 10.9 L 10.7 L Hct 34.9 L 33.6 L MCV 98.3 94.6 MCH 30.7 30.1 MCHC 31.2 L 31.8 L RDW 14.3 14.0 Plt Count 209 225 MPV 10.2 9.6 Sodium 138 138 Potassium 3.4 3.3 L Chloride 109 H 110 H Carbon Dioxide 23 21 L Anion Gap 6 7 BUN 12 12 Creatinine 0.69 L 0.61 L Estim Creat Clear Calc 74 83 Estimated GFR > 60 > 60 Glucose 101 99 Calcium 8.4 8.3 L Total Bilirubin 3.6 H 2.5 H Direct Bilirubin 0.5 H AST 118 H 40 H ALT 16 9 Alkaline Phosphatase 162 H 173 H NT-Pro-B Natriuret Pep 4820 H Total Protein 6.3 6.5 Albumin 3.2 L 3.3 L Quality VTE Prophylaxis VTE prophylaxis: mechanical ordered Hospitalist MIPS Advance Care Plan I have confirmed that the patient's Advanced Care Plan is present, code status is documented, or surrogate decision maker is listed in patient medical record.: Yes Medication Reconciliation I have utilized all available resources to obtain, update and review the patients current medications (includes all prescriptions, OTC, herbals, cannabis, and nutritional supplements).: Yes
[2025-02-07] MEDS: POTASSIUM CHLORIDE 20 MEQ ER TABLET 40 MEQ PO (10:08)
[2025-02-07] MEDS: KCL 20 MEQ/SW 100 ML 100 ML 50 MEQ IVPB (10:08)
[2025-02-07] MEDS: SODIUM CHLORIDE 0.9% IV 50 ML 25 ML (10:09)
[2025-02-07 10:52] LABS: Estimated CRCL calculation 73 ml/min; Estimated Glomerular Filt Rate > 60
--- NOTE | 2025-02-07 14:25 | WPDHPUPDATE1 ---
History and Physical Update Update Date/Time: 02/07/25 14:25 History and Physical has been reviewed, including an updated exam of the patient. There are NO changes in the patient's condition. Risks, benefits, and alternatives have been discussed and questions answered. Patient agrees to proceed with procedure.
--- NOTE | 2025-02-07 14:33 | WPDANESEPPF ---
Anes - Initial Pre Proc Eval Procedure: Operation Date: 02/07/25 16:00 Proposed Procedures p Laparoscopic Cholecystectomy - Italia Galarza MD Date/Time: 02/07/25 14:33 Surgeon: Gaston Perry MD Pre Op Diagnosis: Acute cholecystitis, Elevated troponin Patient Data Age: 74 Gender: F Height: 1.7 m Weight: 101.5 kg Last Vital Signs Temp 36.6 C 02/07/25 08:00 Pulse 84 02/07/25 14:13 Resp 20 02/07/25 14:13 BP 155/63 H 02/07/25 08:00 Pulse Ox 96 02/07/25 12:00 O2 Del Method Nasal Cannula 02/07/25 12:00 O2 Flow Rate 4 02/07/25 12:00 FiO2 36 02/06/25 04:22 Allergies Allergy/AdvReac Type Severity Reaction Status Date / Time No Known Allergies Allergy Verified 02/04/25 21:35 Home Medications ?Medication ?Instructions ?Recorded ?Confirmed ?Type atorvastatin 10 mg tablet 10 mg PO DAILY 02/04/25 02/04/25 History carbidopa 25 mg-levodopa 100 mg 1.5 tablet PO QID 02/04/25 02/04/25 History tablet cholecalciferol (vitamin D3) 50 2,000 unit PO DAILY 02/04/25 02/04/25 History mcg (2,000 unit) tablet (D3 DOTS) diltiazem HCl 120 mg tablet 120 mg PO DAILY 02/04/25 02/04/25 History escitalopram oxalate 20 mg tablet 20 mg PO DAILY 02/04/25 02/04/25 History methylphenidate HCl 36 mg 36 mg PO .every morning 02/04/25 02/04/25 History tablet,extended release 24 hr metoprolol succinate 200 mg 200 mg PO DAILY 02/04/25 02/04/25 History tablet,extended release 24 hr multivitamin-ferrous 1 tablet PO DAILY 02/04/25 02/04/25 History fumarate-folic acid 18 mg-400 mcg tablet (Centrum Women) rivaroxaban 20 mg tablet (Xarelto) 20 mg PO Q24H 02/04/25 02/04/25 History Laboratory Tests 02/04/25 02/06/25 02/07/25 15:31 01:02 00:27 WBC RBC Hgb Hct MCV MCH MCHC RDW Plt Count MPV Sodium 138 mmol/L (137-145) Potassium 3.4 mmol/L (3.4-5.0) Chloride 109 H mmol/L (98-107) Carbon Dioxide 23 mmol/L (22-30) Anion Gap 6 mmol/L (4-12) BUN 12 mg/dL (7-17) Creatinine 0.70 mg/dL 0.69 L mg/dL (0.7-1.2) (0.7-1.0) Estim Creat Clear Calc 73 ml/min 74 ml/min Estimated GFR > 60 > 60 (59 - ) (59 - ) Glucose 101 mg/dL (65-110) Calcium 8.4 mg/dL (8.4-10.2) Total Bilirubin AST ALT Alkaline Phosphatase NT-Pro-B Natriuret Pep 4820 H pg/mL (19.9-100) Total Protein Albumin 02/07/25 04:10 WBC 13.0 H K/mm3 (4.5-10.0) RBC 3.55 L M/mm3 (4.2-5.4) Hgb 10.7 L g/dL (12.0-15.0) Hct 33.6 L % (37.0-47.0) MCV 94.6 fl (80-100) MCH 30.1 pg (26-34) MCHC 31.8 L g/dl (32-36) RDW 14.0 % (11.5-14.5) Plt Count 225 k/mm3 (150-375) MPV 9.6 fl (7.4-10.4) Sodium 138 mmol/L (137-145) Potassium 3.3 L mmol/L (3.4-5.0) Chloride 110 H mmol/L (98-107) Carbon Dioxide 21 L mmol/L (22-30) Anion Gap 7 mmol/L (4-12) BUN 12 mg/dL (7-17) Creatinine 0.61 L mg/dL (0.7-1.0) Estim Creat Clear Calc 83 ml/min Estimated GFR > 60 (59 - ) Glucose 99 mg/dL (65-110) Calcium 8.3 L mg/dL (8.4-10.2) Total Bilirubin 2.5 H mg/dL (0.2-1.3) AST 40 H U/L (14-36) ALT 9 U/L (6-35) Alkaline Phosphatase 173 H U/L (38-126) NT-Pro-B Natriuret Pep Total Protein 6.5 g/dL (6.3-8.2) Albumin 3.3 L g/dL (3.5-5.1) Patient hx anesthesia problems: none Family hx anesthesia problems: none Results Review: All pre-operative results and documents have been reviewed as part of the pre-operative evaluation. [facility] Past Medical History Medical History Obstructive sleep apnea Depression Hypertension Parkinson's disease Hyperlipidemia Atrial fibrillation Surgical History Surgical History H/O bilateral hip replacements History of bilateral knee replacement H/O repair of rotator cuff History of back surgery Social History Social History Social History: The patient stated that she was . She has 2 children. She is retired. Code status: Full code. Smoking status: Never smoker Alcohol intake: never Substance use: never Lack of Transportation: No Lack of Food: Never True Current Housing: I Have Housing Concerned About Future Housing: No Difficulty Paying Gas/Electric Bills: No Difficulty Paying for Meds: No Currently Unemployed: No Education: Master's Degree or Higher Difficulty w/ Childcare or Family Care: No Spiritual care concerns: No Anes - Eval Final PreProcedure Day of Procedure 02/07/25 14:33 Patient weight: obese Heart: irregular rhythm Lungs: clear to auscultation Airway: Mallampati scale class II Neurological: alert and oriented Last oral intake: >/= 8 hours ASA classification: III Emergent: no Anesthetic plan: proceed Anesthesia type and monitoring: general ETT and standard monitoring Results Review: All pre-operative results and documents have been reviewed as part of the pre-operative evaluation. Informed Consent: The patient's anesthetic plan and its attendant risks and benefits were discussed with the patient/family/POA. Questions were solicited and answers provided to the satisfaction of the patient/family/POA.
[2025-02-07] MEDS: LACTATED RINGERS 1,000 ML 30 ML IV CONT (15:00)
[2025-02-07] MEDS: BUPIVACAINE/EPINEPHRINE 0.5% 50 ML VIAL 30 ML INFILTRATE (15:33)
--- NOTE | 2025-02-07 15:54 | S_PTH ---
PATIENT: Natalya De La Rosa LOC: [facility] U#:[id number] AGE/SX: 74/F ROOM: 214 RE02/04/[address]: Darwin Stapleton MD : 1950 BED: 01 DIS: 02/15/2025 SPEC #: [id number] RECD: 02/08/25 07:57 STATUS: NEGRA REJamaal #: [id number] LINETTE: 02/07/25 15:[address]: Italia Galarza DEPT: [facility] Surgical RECD BY: Simi Whittaker ENTERED: 02/08/25 07:57 SP TYPE: Surgical OTHR DR: Gaston Perry MD Tissues: A - Gallbladder Procedures: Hematoxylin and Eosin Stain Gross and Microscopic Level 3
--- NOTE | 2025-02-07 16:15 | P.OP_ITS ---
Procedure Note - Detailed Date of Procedure 02/07/25 Pre-op Diagnosis Acute hemorrhagic cholecystitis, gangrenous cholecystitis Post-op Diagnosis Same Procedure Performed laparoscopic cholecystectomy, drainage of a large amount of hematoma and clot Surgeon Italia Galarza MD Anesthesia General and Local Indications 74-year-old female presenting to the hospital complaining of upper abdominal pain. Workup, including imaging, significant for acute hemorrhagic cholecystitis, possible gangrenous cholecystitis. Patient was admitted and initially treated conservatively without much improvement. Patient is now set up for urgent cholecystectomy. Findings Large amount of old blood and clot within an inflammatory rind in the right upper quadrant, gallbladder with large rent along the anterior surface draining old blood and clot Description of Procedure The patient was taken the operating room placed in the supine position. After adequate induction of general anesthesia, the patient was prepped and draped in the normal sterile fashion. A time-out was then done to verify the patient's identity, as well as the procedure being performed. I began by making 5 mm incision in the infraumbilical region. I then placed a Veress needle into the intraperitoneal cavity. CO2 gas was then insufflated. After adequate pneumoperitoneum was achieved, the Veress needle was removed and 5 mm Optiview trocar was placed under visualization. Once confirmed in proper position, the obturator was removed and the laparoscope was placed into the intra-abdominal cavity. I then placed a further 12 mm subxiphoid port, as well as 2 additional 5 mm ports in the right abdomen. At this point, a large inflammatory mass was noted right upper quadrant. Using careful blunt dissection, I was able to slowly tease the inflammatory rind off the underlying tissue. This was largely comprised of omentum. Under this tissue was a large amount of old blood and clot. I copiously suction this and approximately 200 mL of old blood and clot was suctioned away. I was able to identify the gallbladder. There was noted to be a large opening in the gallbladder on the anterior surface near the fundus. This area was noted to contain a large area of clot and old blood. We were able to grasp the fundus of the gallbladder and retract this anterior and cephalad. Using gentle traction with another retractor, I grasped the gallbladder near the neck and retracted laterally. Of note, the gallbladder was very friable and the tissue was necrotic appearing. Using gentle dissection with largely the suction device, I was able to identify the elements of the triangle of Calot. I 1st identified the cystic duct. The duct was noted in its entirety from its proximal insertion into the gallbladder to the distal insertion into the common hepatic/ common bile duct junction. I then further skeletonized clipped and transected the proximal cystic duct. Next, I identified the cystic artery. Again the artery was skeletonized clipped and transected. I then took the peritoneal attachments of the gallbladder off the liver bed using the Bovie cautery. This was somewhat difficult given the friability of the gallbladder wall. Once the gallbladder was completely detached, the endo-pouch was placed through the 12 mm port site. The gallbladder specimen was placed in the endo- pouch and subsequently removed. I then copiously irrigated the right upper quadrant. Hemostasis was noted in the liver bed and no active bleeding was noted anywhere in the right upper quadrant. I further copiously irrigated and suctioned the right upper quadrant. I then placed some Kaylan in the liver bed. I then closed the 12 mm port site under direct visualization with a Jerry- Anne and 0 Vicryl suture. The abdomen was then desufflated and all ports were removed. All port sites were then closed with 4-0 Monocryl subcuticular suture. Dermabond was placed on all wounds. Patient tolerated the procedure well and was extubated postoperatively. She will be transferred to the recovery room in stable condition. Estimated Blood Loss 200 Urine Output 100 Drains No Packing No Pathology Yes Complications No immediate complications Condition Stable Disposition PACU [facility] Billing Surgery - Charge Forward: Surgery Billing
[2025-02-07] MEDS: fentaNYL CITRATE INJ (*CRX) 100 MCG/2 ML VIAL 25 MCG IV PUSH ×2 (16:30→16:50)
[2025-02-07] MEDS: HYDROcodone/acetaminophen (*CRX) 5-325 MG TABLET 1 TAB PO (19:43)
[2025-02-08] VITALS (24 sets, daily range): BP systolic 120–138; BP diastolic 70–88; PULSE 74–133; RESP 16–26; TEMP 36.7–37.2; O2SAT 92–98
[2025-02-08 01:23] LABS: Anion Gap 8 mmol/L (4-12); Blood Urea Nitrogen 10 mg/dL (7-17); Calcium 8.3 mg/dL (8.4-10.2); Carbon Dioxide 20 mmol/L (22-30); Chloride 110 mmol/L (98-107); Estimated CRCL calculation 80 ml/min; Estimated Glomerular Filt Rate > 60; Glucose 142 mg/dL (65-110); Potassium 3.8 mmol/L (3.4-5.0); Sodium 138 mmol/L (137-145)
[2025-02-08] MEDS: HYDROmorphone HCL INJ (*CRX) 1 MG/ML SYR 0.5 MG IV PUSH ×2 (03:29→09:01)
[2025-02-08 04:45] LABS: Hematocrit 36.1 % (37.0-47.0); Hemoglobin 11.6 g/dL (12.0-15.0); Immature Granulocyte Percent A 0.6 % (0-0.5); Lymphocytes Absolute Auto 1.04 K/mm3 (0.9-3.2); Mean Corpuscular HGB Conc 32.1 g/dl (32-36); Mean Corpuscular Hemoglobin 30.3 pg (26-34); Mean Corpuscular Volume 94.3 fl (80-100); Nucleated Red Blood Cells Absolute Auto 0.000 K/mm3 (0.0-0.012); Nucleated Red Blood Cells Perc 0.0 % (0.0-0.2); Platelet Count Result 273 k/mm3 (150-375); Red Blood Count 3.83 M/mm3 (4.2-5.4); White Blood Count 11.0 K/mm3 (4.5-10.0)
[2025-02-08 05:01] LABS: Alanine Aminotransferase 24 U/L (6-35); Albumin Level 3.3 g/dL (3.5-5.1); Alkaline Phosphatase 174 U/L (38-126); Anion Gap 7 mmol/L (4-12); Aspartate Amino Transferase 30 U/L (14-36); Bilirubin,Total 1.4 mg/dL (0.2-1.3); Blood Urea Nitrogen 10 mg/dL (7-17); Calcium 8.3 mg/dL (8.4-10.2); Carbon Dioxide 22 mmol/L (22-30); Chloride 109 mmol/L (98-107); Estimated CRCL calculation 76 ml/min; Estimated Glomerular Filt Rate > 60; Glucose 143 mg/dL (65-110); Potassium 3.9 mmol/L (3.4-5.0); Sodium 138 mmol/L (137-145); Total Protein 6.7 g/dL (6.3-8.2)
[2025-02-08] MEDS: PIPERACILLIN/TAZOBACTAM SOD 3.375 GM in SODIUM CHLORIDE 0.9% IV 50 ML 100 ML IVPB ×4 (05:37→17:06)
--- NOTE | 2025-02-08 06:25 | P.PNIM_ITS ---
Progress Note: A&P Assessment and Plan (1) Acute hemorrhagic cholecystitis: Code(s): K81.0 - Acute cholecystitis Status: Acute Assessment and Plan: -Abdomen/Pelvis CT 02/04/25 15:44 IMPRESSION: 1. Likely hemorrhagic cholecystitis with intraluminal active contrast extravasation and both intraluminal and pericholecystic hemorrhage. 2. Diverticulosis. -surgery has been consulted. Further recommendations and considerations would greatly be appreciated. -the patient has a history of AFib and has been on Xarelto which has been discontinued -underwent cholecystectomy 02/07 -the patient has been started on Zosyn. -continue with pain management -diet as per surgery. -continue with IV fluids. (2) Elevated troponin: Code(s): R79.89 - Other specified abnormal findings of blood chemistry Status: Acute Assessment and Plan: -her initial troponin was mildly elevated but has been negative for the last 2. (3) Hypertension: Code(s): I10 - Essential (primary) hypertension Status: Acute Assessment and Plan: -continue with metoprolol if blood pressure allows. (4) Atrial fibrillation: Code(s): I48.91 - Unspecified atrial fibrillation Status: Acute Assessment and Plan: -heart rate is controlled at this time. And she is in sinus rhythm. -continue with metoprolol if blood pressure allows. -Xarelto was on hold due to hemorrhagic cholecystitis. -surgery agrees and restarted on Xarelto (5) Hyperlipidemia: Code(s): E78.5 - Hyperlipidemia, unspecified Status: Acute Assessment and Plan: -resume atorvastatin when able. (6) Parkinson's disease: Code(s): G20.A1 - Parkinson's disease without dyskinesia, without mention of fluctuations Status: Acute Assessment and Plan: -continue with carbidopa levodopa (7) Obstructive sleep apnea: Code(s): G47.33 - Obstructive sleep apnea (adult) (pediatric) Status: Acute Assessment and Plan: -auto titrate to home settings. Subjective Date/time seen: 02/08/25 06:25 Interval history: Patient underwent cholecystectomy on 02/07/2025. Patient has a history of AFib. Discontinued Xarelto due to hemorrhagic cholecystitis. Surgery is okay to restart anticoagulation. Review of Systems Constitutional: Constitutional: Reports as per HPI and Reports no additional constitutional complaints Eyes: Eyes: Reports as per HPI and Reports no additional eye complaints ENT: Reports system reviewed and no additional complaints, except as documented and Reports Normal hearing present Cardiovascular: Cardiovascular: Reports no additional cardiovascular complaints Respiratory: Respiratory: Reports as per HPI and Reports no additional respiratory complaints Gastrointestinal: Gastrointestinal: Reports as per HPI and Reports no additional gastrointestinal complaints Genitourinary: Genitourinary: Reports no additional female genitourinary complaints Musculoskeletal: Musculoskeletal: Reports no additional musculoskeletal complaints Integumentary/Breasts: Skin/Breast: Reports system reviewed and no additional complaints, except as docu Neurologic: Reports system reviewed and no additional complaints, except as documented and Reports Normal hearing present Psychiatric: Psychiatric: Reports no additional psychiatric complaints and Reports as per HPI Hematologic/Lymphatic: Hematologic/Lymphatic: Reports no additional hematologic/lymphatic complaints Allergic/Immunologic: Allergic/Immunologic: Reports no additional allergic/immunologic complaints Exam Const: General: cooperative, healthy appearing, comfortable, no acute distress, well developed, awake, Physically active, average body habitus and well nourished Nutritional Appearance: average body habitus and well nourished Orientation/consciousness: oriented to person, oriented to place, oriented to time and patient oriented x3 Limitations: no limitations HENMT: Head: normal to inspection, No palpable skull fracture present, normocephalic, atraumatic and abrasion Ears: hearing grossly normal bilaterally and external ears normal Eyes: General: appearance normal, both eyes and all related structures Alignment and Position: alignment normal Periorbital: periorbital findings normal Eyelids: eyelids normal Pupils: Equal, round and reactive pupils present EOM: EOMs intact bilaterally Neck: Neck: normal visual inspection and full ROM Chest: Chest palpation & inspection: normal inspection of the chest Resp: Effort & Inspection: normal respiratory effort Auscultation: clear to auscultation bilaterally Cardio: Palpation: normal PMI Rate: regular rate Rhythm: regular rhythm Heart sounds: S1 normal heart sound present and S2 normal heart sound present Peripheral pulses: Peripheral pulses 2+ throughout GI: Inspection: normal to inspection Skin: General skin exam: normal color Lesions: no lesions Rashes: no rashes Trauma: no lacerations or abrasions Wounds: no wounds Hair: nor mal Nails: normal Neuro: General: oriented to person, oriented to place, oriented to time and patient oriented x3 Cranial nerves: Yes Equal, round and reactive pupils present and Yes Normal hearing present Cognition (Neuro): normal cognition Speech: normal speech Motor exam (neuro): 5/5 motor strength present throughout Sensory Exam: normal sensation Extrem: General: normal to inspection Right upper extremity: normal to inspection and shoulder/upper arm Left upper extremity: normal to inspection and shoulder/upper arm Right lower extremity: normal to inspection Left lower extremity: normal to inspection Psych: Appearance: grossly normal Mental Status: mental status grossly normal Speech and movement: Normal speech and movement present Affect: normal affect Attitude: cooperative Thought process: Normal thought process present Insight: Good insight present (Psych) Judgement: Good judgement present (Psych) Objective Data Vital Signs Vital Signs: Vital Signs - 24 hr 02/07/25 07:34 02/07/25 07:34 02/07/25 07:39 Temperature Pulse Rate 114 H 114 H 119 H Respiratory Rate 21 H 21 H Blood Pressure Pulse Oximetry 97 Oxygen Delivery Nasal Cannula Oxygen Flow Rate 3 02/07/25 08:00 02/07/25 08:00 02/07/25 08:00 Temperature 97.8 F Pulse Rate 136 H 129 H Respiratory Rate 28 H Blood Pressure 155/63 H Pulse Oximetry 96 96 Oxygen Delivery Nasal Cannula Oxygen Flow Rate 4 02/07/25 10:00 02/07/25 12:00 02/07/25 12:00 Temperature Pulse Rate 89 88 Respiratory Rate Blood Pressure Pulse Oximetry 96 Oxygen Delivery Nasal Cannula Oxygen Flow Rate 4 02/07/25 14:08 02/07/25 14:13 02/07/25 14:30 Temperature 97.8 F Pulse Rate 83 84 100 Respiratory Rate 20 20 16 Blood Pressure 134/67 Pulse Oximetry 95 Oxygen Delivery Room Air Oxygen Flow Rate 02/07/25 16:13 02/07/25 16:25 02/07/25 16:40 Temperature 97.4 F L Pulse Rate 93 95 101 H Respiratory Rate 26 H 26 H 24 H Blood Pressure 125/73 139/78 133/77 Pulse Oximetry 94 96 97 Oxygen Delivery Simple Face Mask Simple Face Mask Simple Face Mask Oxygen Flow Rate 8 8 8 02/07/25 16:45 02/07/25 16:55 02/07/25 17:10 Temperature Pulse Rate 104 H 97 Respiratory Rate 24 H 22 H Blood Pressure 137/80 137/64 Pulse Oximetry 94 94 Oxygen Delivery Nasal Cannula Nasal Cannula Nasal Cannula Oxygen Flow Rate 3 3 3 02/07/25 17:25 02/07/25 17:30 02/07/25 18:00 Temperature 97.4 F L 98.1 F 97.8 F Pulse Rate 100 104 H 101 H Respiratory Rate 22 H 20 24 H Blood Pressure 141/82 H 130/68 132/74 Pulse Oximetry 95 94 95 Oxygen Delivery Nasal Cannula Oxygen Flow Rate 3 02/07/25 18:00 02/07/25 18:33 02/07/25 19:00 Temperature 97.6 F 98.6 F Pulse Rate 108 H 107 H 118 H Respiratory Rate 16 20 Blood Pressure 120/65 137/82 Pulse Oximetry 94 95 Oxygen Delivery Oxygen Flow Rate 02/07/25 19:50 02/07/25 20:00 02/07/25 20:30 Temperature 97.6 F Pulse Rate 114 H 112 H 102 H Respiratory Rate 22 H 22 H Blood Pressure 152/82 H Pulse Oximetry 95 Oxygen Delivery Oxygen Flow Rate 02/07/25 20:30 02/07/25 20:40 02/07/25 21:25 Temperature Pulse Rate 102 H 105 H 105 H Respiratory Rate 20 Blood Pressure Pulse Oximetry 94 94 Oxygen Delivery Nasal Cannula Autopap Oxygen Flow Rate 2 02/07/25 22:00 02/07/25 22:48 02/08/25 00:00 Temperature 98.9 F Pulse Rate 117 H 112 H 105 H Respiratory Rate 22 H Blood Pressure 113/60 Pulse Oximetry 94 Oxygen Delivery Oxygen Flow Rate 02/08/25 01:54 02/08/25 02:00 02/08/25 02:19 Temperature 98.4 F Pulse Rate 98 95 101 H Respiratory Rate 22 H Blood Pressure 132/80 Pulse Oximetry 95 96 Oxygen Delivery Autopap Oxygen Flow Rate 02/08/25 03:52 02/08/25 04:00 02/08/25 06:00 Temperature 98.4 F Pulse Rate 110 H 96 107 H Respiratory Rate 22 H Blood Pressure 138/88 Pulse Oximetry 93 Oxygen Delivery Oxygen Flow Rate Intake/Output Intake/Output: Intake & Output 02/05/25 02/06/25 02/07/25 02/08/25 23:59 23:59 23:59 23:59 Intake Total 3747.5 3390 950 50 Output Total 0440 249 0931 Balance 2322.5 0795 -892 50 Meds/Results Medications: Active Medications Generic Name Dose Route Start Last Admin Trade Name Freq PRN Reason Stop Dose Admin Hydrocodone Bitart/Acetaminophen 1 tab 02/07/25 17:30 02/07/25 19:43 Hydrocodone/Acetaminophen (*Crx) 5-325 Mg Tablet PO 1 tab Q4H PRN Administration Pain Rated 4-6 Carbidopa/Levodopa 1 tablet 02/05/25 09:00 02/07/25 21:16 Carbidopa/Levodopa 25/100 Mg Tablet PO Not Given QID JAZ Carbidopa/Levodopa 1 tablet 02/05/25 09:00 02/07/25 21:16 Carbidopa/Levodopa 12.5/50 Mg Tablet PO Not Given QID JAZ Diltiazem HCl 120 mg 02/05/25 09:00 02/07/25 08:31 Diltiazem Hcl 60 Mg Tablet PO 120 mg DAILY JAZ Administration Escitalopram Oxalate 20 mg 02/05/25 09:00 02/07/25 08:31 Escitalopram Oxalate 10 Mg Tablet PO 20 mg DAILY JAZ Administration Hydromorphone HCl 0.5 mg 02/04/25 17:00 02/08/25 03:29 Hydromorphone Hcl Inj (*Crx) 1 Mg/Ml Syr IV PUSH 0.5 mg Q4H PRN Administration Pain Rated 7-10 Piperacillin Sod/Tazobactam 50 mls @ 100 mls/hr 02/05/25 00:00 02/08/25 05:37 Sod 3.375 gm/ Sodium Chloride IVPB 100 mls/hr Q6HR JAZ Administration Levalbuterol HCl 1.25 mg 02/06/25 18:00 02/08/25 04:57 Levalbuterol Neb 1.25 Mg/3 Ml INHALATION Not Given Q6HRT JAZ Lorazepam 0.5 mg 02/06/25 08:14 02/06/25 10:24 Lorazepam (*Crx) 0.5 Mg Tablet PO 0.5 mg Q6H PRN Administration Anxiety Metoprolol Succinate 200 mg 02/05/25 09:00 02/07/25 08:31 Metoprolol Succinate Ext Rel 100 Mg Tabcr PO 200 mg DAILY JAZ Administration Ondansetron HCl 4 mg 02/04/25 17:00 Ondansetron Inj 4 Mg/2 Ml Vial IV PUSH Q4H PRN Nausea Radiology Results: ITS Impressions Abdomen/Pelvis CT 02/04/25 15:44 IMPRESSION: 1. Likely hemorrhagic cholecystitis with intraluminal active contrast extravasation and both intraluminal and pericholecystic hemorrhage. 2. Diverticulosis. Abdomen Ultrasound 02/05/25 11:43 IMPRESSION: 1. Gallbladder slightly dilated and filled with probable hemorrhage. Underlying lesion cannot be excluded. 2. Probable cholecystitis. MRCP 02/06/25 11:59 IMPRESSION: 1. T1 hyperintense likely blood within and surrounding the gallbladder con sistent with likely hemorrhagic cholecystitis. No evident cholelithiasis/choledocholithiasis or biliary ductal dilation. 2. Small right and very small left pleural effusions with dependent atelectasis in the bilateral lower lobes. 3. Cardiomegaly. Chest X-Ray 02/06/25 18:03 IMPRESSION: 1. No focal pulmonary lesions. Minimal blunting of costophrenic angle suggestive of minimal bilateral pleural effusion. 2. Severe scoliosis of the spine. Labs Labs: Laboratory Results - last 24 hr 02/04/25 02/07/25 02/08/25 15:31 14:43 01:01 WBC RBC Hgb Hct MCV MCH MCHC RDW Plt Count MPV Immature Gran % (Auto) Neut % (Auto) Lymph % (Auto) [place] % (Auto) Eos % (Auto) Baso % (Auto) Lymph # (Auto) [place] # (Auto) Eos # (Auto) Baso # (Auto) Abs Immat Gran (auto) Absolute Neuts (auto) Absolute Nucleated RBC Nucleated RBC % Sodium 138 Potassium 3.8 Chloride 110 H Carbon Dioxide 20 L Anion Gap 8 BUN 10 Creatinine 0.70 0.64 L Estim Creat Clear Calc 73 80 Estimated GFR > 60 > 60 Glucose 142 H Calcium 8.3 L Total Bilirubin AST ALT Alkaline Phosphatase Total Protein Albumin Blood Type O Negative Antibody Screen Negative 02/08/25 04:35 WBC 11.0 H RBC 3.83 L Hgb 11.6 L Hct 36.1 L MCV 94.3 MCH 30.3 MCHC 32.1 RDW 14.3 Plt Count 273 MPV 9.3 Immature Gran % (Auto) 0.6 H Neut % (Auto) 82.8 H Lymph % (Auto) 9.5 L [place] % (Auto) 6.9 Eos % (Auto) 0.0 Baso % (Auto) 0.2 Lymph # (Auto) 1.04 [place] # (Auto) 0.8 H Eos # (Auto) 0.0 Baso # (Auto) 0.0 Abs Immat Gran (auto) 0.07 H Absolute Neuts (auto) 9.1 H Absolute Nucleated RBC 0.000 Nucleated RBC % 0.0 Sodium 138 Potassium 3.9 Chloride 109 H Carbon Dioxide 22 Anion Gap 7 BUN 10 Creatinine 0.67 L Estim Creat Clear Calc 76 Estimated GFR > 60 Glucose 143 H Calcium 8.3 L Total Bilirubin 1.4 H AST 30 ALT 24 Alkaline Phosphatase 174 H Total Protein 6.7 Albumin 3.3 L Blood Type Antibody Screen Quality VTE Prophylaxis VTE prophylaxis: mechanical ordered Hospitalist MIPS Advance Care Plan I have confirmed that the patient's Advanced Care Plan is present, code status is documented, or surrogate decision maker is listed in patient medical record.: Yes Medication Reconciliation I have utilized all available resources to obtain, update and review the patients current medications (includes all prescriptions, OTC, herbals, cannabis, and nutritional supplements).: Yes
--- NOTE | 2025-02-08 08:33 | P.PNGS_ITS ---
Progress Note: A&P Assessment and Plan (1) Acute hemorrhagic cholecystitis: Code(s): K81.0 - Acute cholecystitis Status: Acute Assessment and Plan: doing well, continue routine postoperative care, will advance to heart healthy diet, okay to restart anticoagulation, hopefully home soon Subjective Subjective Date/Time Seen: 02/08/25 08:33 Interval history: feels much better, complaining some mild incisional soreness Review of Systems Review of Systems: All systems reviewed & are unremarkable except as noted in HPI and below Exam Const: General: cooperative, comfortable and no acute distress Resp: Auscultation: clear to auscultation bilaterally Cardio: Rate: regular rate Rhythm: regular rhythm GI: Inspection: normal to inspection, distended and incision GI Palp: Yes abdominal tenderness and Yes Soft to palpation Objective Data Vital Signs Vital Signs: Vital Signs - 24 hr 02/07/25 10:00 02/07/25 12:00 02/07/25 12:00 Temperature Pulse Rate 89 88 Respiratory Rate Blood Pressure Pulse Oximetry 96 Oxygen Delivery Nasal Cannula Oxygen Flow Rate 4 02/07/25 14:08 02/07/25 14:13 02/07/25 14:30 Temperature 36.6 C Pulse Rate 83 84 100 Respiratory Rate 20 20 16 Blood Pressure 134/67 Pulse Oximetry 95 Oxygen Delivery Room Air Oxygen Flow Rate 02/07/25 16:13 02/07/25 16:25 02/07/25 16:40 Temperature 36.3 C L Pulse Rate 93 95 101 H Respiratory Rate 26 H 26 H 24 H Blood Pressure 125/73 139/78 133/77 Pulse Oximetry 94 96 97 Oxygen Delivery Simple Face Mask Simple Face Mask Simple Face Mask Oxygen Flow Rate 8 8 8 02/07/25 16:45 02/07/25 16:55 02/07/25 17:10 Temperature Pulse Rate 104 H 97 Respiratory Rate 24 H 22 H Blood Pressure 137/80 137/64 Pulse Oximetry 94 94 Oxygen Delivery Nasal Cannula Nasal Cannula Nasal Cannula Oxygen Flow Rate 3 3 3 02/07/25 17:25 02/07/25 17:30 02/07/25 18:00 Temperature 36.3 C L 36.7 C 36.6 C Pulse Rate 100 104 H 101 H Respiratory Rate 22 H 20 24 H Blood Pressure 141/82 H 130/68 132/74 Pulse Oximetry 95 94 95 Oxygen Delivery Nasal Cannula Oxygen Flow Rate 3 02/07/25 18:00 02/07/25 18:33 02/07/25 19:00 Temperature 36.4 C 37.0 C Pulse Rate 108 H 107 H 118 H Respiratory Rate 16 20 Blood Pressure 120/65 137/82 Pulse Oximetry 94 95 Oxygen Delivery Oxygen Flow Rate 02/07/25 19:50 02/07/25 20:00 02/07/25 20:30 Temperature 36.4 C Pulse Rate 114 H 112 H 102 H Respiratory Rate 22 H 22 H Blood Pressure 152/82 H Pulse Oximetry 95 Oxygen Delivery Oxygen Flow Rate 02/07/25 20:30 02/07/25 20:40 02/07/25 21:25 Temperature Pulse Rate 102 H 105 H 105 H Respiratory Rate 20 Blood Pressure Pulse Oximetry 94 94 Oxygen Delivery Nasal Cannula Autopap Oxygen Flow Rate 2 02/07/25 22:00 02/07/25 22:48 02/08/25 00:00 Temperature 37.2 C Pulse Rate 117 H 112 H 105 H Respiratory Rate 22 H Blood Pressure 113/60 Pulse Oximetry 94 Oxygen Delivery Oxygen Flow Rate 02/08/25 01:54 02/08/25 02:00 02/08/25 02:19 Temperature 36.9 C Pulse Rate 98 95 101 H Respiratory Rate 22 H Blood Pressure 132/80 Pulse Oximetry 95 96 Oxygen Delivery Autopap Oxygen Flow Rate 02/08/25 03:52 02/08/25 04:00 02/08/25 06:00 Temperature 36.9 C Pulse Rate 110 H 96 107 H Respiratory Rate 22 H Blood Pressure 138/88 Pulse Oximetry 93 Oxygen Delivery Oxygen Flow Rate 02/08/25 07:11 02/08/25 07:11 02/08/25 07:23 Temperature Pulse Rate 108 H 116 H Respiratory Rate 20 24 H Blood Pressure Pulse Oximetry 94 Oxygen Delivery Nasal Cannula Oxygen Flow Rate 1 02/08/25 08:00 Temperature 36.7 C Pulse Rate 129 H Respiratory Rate 20 Blood Pressure 137/70 Pulse Oximetry 96 Oxygen Delivery Oxygen Flow Rate Intake/Output Intake/Output: Intake & Output 02/05/25 02/06/25 02/07/25 02/08/25 23:59 23:59 23:59 23:59 Intake Total 3747.5 3390 950 300 Output Total 2411 051 4137 850 Balance 2322.5 8293 -024 -780 Meds/Results Medications: Active Medications Generic Name Dose Route Start Last Admin Trade Name Freq PRN Reason Stop Dose Admin Hydrocodone Bitart/Acetaminophen 1 tab 02/07/25 17:30 02/07/25 19:43 Hydrocodone/Acetaminophen (*Crx) 5-325 Mg Tablet PO 1 tab Q4H PRN Administration Pain Rated 4-6 Carbidopa/Levodopa 1 tablet 02/05/25 09:00 02/07/25 21:16 Carbidopa/Levodopa 25/100 Mg Tablet PO Not Given QID JAZ Carbidopa/Levodopa 1 tablet 02/05/25 09:00 02/07/25 21:16 Carbidopa/Levodopa 12.5/50 Mg Tablet PO Not Given QID JAZ Diltiazem HCl 120 mg 02/05/25 09:00 02/07/25 08:31 Diltiazem Hcl 60 Mg Tablet PO 120 mg DAILY JAZ Administration Escitalopram Oxalate 20 mg 02/05/25 09:00 02/07/25 08:31 Escitalopram Oxalate 10 Mg Tablet PO 20 mg DAILY JAZ Administration Hydromorphone HCl 0.5 mg 02/04/25 17:00 02/08/25 03:29 Hydromorphone Hcl Inj (*Crx) 1 Mg/Ml Syr IV PUSH 0.5 mg Q4H PRN Administration Pain Rated 7-10 Piperacillin Sod/Tazobactam 50 mls @ 100 mls/hr 02/05/25 00:00 02/08/25 08:14 Sod 3.375 gm/ Sodium Chloride IVPB Infused Q6HR JAZ Infusion Levalbuterol HCl 1.25 mg 02/06/25 18:00 02/08/25 07:10 Levalbuterol Neb 1.25 Mg/3 Ml INHALATION 1.25 mg Q6HRT JAZ Administration Lorazepam 0.5 mg 02/06/25 08:14 02/06/25 10:24 Lorazepam (*Crx) 0.5 Mg Tablet PO 0.5 mg Q6H PRN Administration Anxiety Metoprolol Succinate 200 mg 02/05/25 09:00 02/07/25 08:31 Metoprolol Succinate Ext Rel 100 Mg Tabcr PO 200 mg DAILY JAZ Administration Ondansetron HCl 4 mg 02/04/25 17:00 Ondansetron Inj 4 Mg/2 Ml Vial IV PUSH Q4H PRN Nausea Radiology Results: ITS Impressions Abdomen/Pelvis CT 02/04/25 15:44 IMPRESSION: 1. Likely hemorrhagic cholecystitis with intraluminal active contrast extravasation and both intraluminal and pericholecystic hemorrhage. 2. Diverticulosis. Abdomen Ultrasound 02/05/25 11:43 IMPRESSION: 1. Gallbladder slightly dilated and filled with probable hemorrhage. Underlying lesion cannot be excluded. 2. Probable cholecystitis. MRCP 02/06/25 11:59 IMPRESSION: 1. T1 hyperintense likely blood within and surrounding the gallbladder consistent with likely hemorrhagic cholecystitis. No evident cholelithiasis/choledocholithiasis or biliary ductal dilation. 2. Small right and very small left pleural effusions with dependent atelectasis in the bilateral lower lobes. 3. Cardiomegaly. Chest X-Ray 02/06/25 18:03 IMPRESSION: 1. No focal pulmonary lesions. Minimal blunting of costophrenic angle suggestive of minimal bilateral pleural effusion. 2. Severe scoliosis of the spine. Labs Labs: Laboratory Results - last 24 hr 02/04/25 02/07/25 02/08/25 15:31 14:43 01:01 WBC RBC Hgb Hct MCV MCH MCHC RDW Plt Count MPV Immature Gran % (Auto) Neut % (Auto) Lymph % (Auto) [place] % (Auto) Eos % (Auto) Baso % (Auto) Lymph # (Auto) [place] # (Auto) Eos # (Auto) Baso # (Auto) Abs Immat Gran (auto) Absolute Neuts (auto) Absolute Nucleated RBC Nucleated RBC % Sodium 138 Potassium 3.8 Chloride 110 H Carbon Dioxide 20 L Anion Gap 8 BUN 10 Creatinine 0.70 0.64 L Estim Creat Clear Calc 73 80 Estimated GFR > 60 > 60 Glucose 142 H Calcium 8.3 L Total Bilirubin AST ALT Alkaline Phosphatase Total Protein Albumin Blood Type O Negative Antibody Screen Negative 02/08/25 04:35 WBC 11.0 H RBC 3.83 L Hgb 11.6 L Hct 36.1 L MCV 94.3 MCH 30.3 MCHC 32.1 RDW 14.3 Plt Count 273 MPV 9.3 Immature Gran % (Auto) 0.6 H Neut % (Auto) 82.8 H Lymph % (Auto) 9.5 L [place] % (Auto) 6.9 Eos % (Auto) 0.0 Baso % (Auto) 0.2 Lymph # (Auto) 1.04 [place] # (Auto) 0.8 H Eos # (Auto) 0.0 Baso # (Auto) 0.0 Abs Immat Gran (auto) 0.07 H Absolute Neuts (auto) 9.1 H Absolute Nucleated RBC 0.000 Nucleated RBC % 0.0 Sodium 138 Potassium 3.9 Chloride 109 H Carbon Dioxide 22 Anion Gap 7 BUN 10 Creatinine 0.67 L Estim Creat Clear Calc 76 Estimated GFR > 60 Glucose 143 H Calcium 8.3 L Total Bilirubin 1.4 H AST 30 ALT 24 Alkaline Phosphatase 174 H Total Protein 6.7 Albumin 3.3 L Blood Type Antibody Screen
[2025-02-08] MEDS: ESCITALOPRAM OXALATE 10 MG TABLET 20 MG PO (08:47)
[2025-02-08] MEDS: CARBIDOPA/LEVODOPA 12.5/50 MG TABLET 1 TABLET PO ×4 (08:47→21:28)
[2025-02-08] MEDS: CARBIDOPA/LEVODOPA 25/100 MG TABLET 1 TABLET PO ×4 (08:47→21:28)
[2025-02-08] MEDS: METOPROLOL SUCCINATE EXT REL 100 MG TABCR 200 MG PO (08:47)
[2025-02-08] MEDS: HYDROcodone/acetaminophen (*CRX) 5-325 MG TABLET 1 TAB PO ×4 (08:47→20:20)
[2025-02-08] MEDS: RIVAROXABAN 20 MG TABLET PO (17:06)
[2025-02-09] VITALS (21 sets, daily range): BP systolic 113–150; BP diastolic 63–80; PULSE 66–123; RESP 14–28; TEMP 35.9–36.7; O2SAT 90–96
[2025-02-09] MEDS: PIPERACILLIN/TAZOBACTAM SOD 3.375 GM in SODIUM CHLORIDE 0.9% IV 50 ML 100 ML IVPB ×4 (00:32→17:06)
[2025-02-09] MEDS: HYDROcodone/acetaminophen (*CRX) 5-325 MG TABLET 1 TAB PO ×4 (00:33→20:53)
[2025-02-09 02:13] LABS: Alanine Aminotransferase 8 U/L (6-35); Albumin Level 3.1 g/dL (3.5-5.1); Alkaline Phosphatase 141 U/L (38-126); Anion Gap 3 mmol/L (4-12); Aspartate Amino Transferase 23 U/L (14-36); Bilirubin,Total 1.1 mg/dL (0.2-1.3); Blood Urea Nitrogen 13 mg/dL (7-17); Calcium 7.8 mg/dL (8.4-10.2); Carbon Dioxide 27 mmol/L (22-30); Chloride 106 mmol/L (98-107); Estimated CRCL calculation 82 ml/min; Estimated Glomerular Filt Rate > 60; Glucose 144 mg/dL (65-110); Potassium 3.5 mmol/L (3.4-5.0); Sodium 136 mmol/L (137-145); Total Protein 6.4 g/dL (6.3-8.2)
[2025-02-09] MEDS: CARBIDOPA/LEVODOPA 12.5/50 MG TABLET 1 TABLET PO ×4 (08:24→20:53)
[2025-02-09] MEDS: CARBIDOPA/LEVODOPA 25/100 MG TABLET 1 TABLET PO ×4 (08:24→20:53)
[2025-02-09] MEDS: ESCITALOPRAM OXALATE 10 MG TABLET 20 MG PO (08:24)
[2025-02-09] MEDS: METOPROLOL SUCCINATE EXT REL 100 MG TABCR 200 MG PO (08:24)
--- NOTE | 2025-02-09 13:19 | P.PNIM_ITS ---
Progress Note: A&P Assessment and Plan (1) Acute hemorrhagic cholecystitis: Code(s): K81.0 - Acute cholecystitis Status: Acute Assessment and Plan: -Abdomen/Pelvis CT 02/04/25 15:44 IMPRESSION: 1. Likely hemorrhagic cholecystitis with intraluminal active contrast extravasation and both intraluminal and pericholecystic hemorrhage. 2. Diverticulosis. -surgery has been consulted. -the patient has a history of AFib and has been on Xarelto which has been discontinued -status post cholecystectomy 02/07 -the patient has been started on Zosyn. -continue with pain management -diet as per surgery. - (2) Elevated troponin: Code(s): R79.89 - Other specified abnormal findings of blood chemistry Status: Acute Assessment and Plan: -her initial troponin was mildly elevated but has been negative for the last 2. (3) Hypertension: Code(s): I10 - Essential (primary) hypertension Status: Acute Assessment and Plan: -continue with metoprolol if blood pressure allows. (4) Atrial fibrillation: Code(s): I48.91 - Unspecified atrial fibrillation Status: Acute Assessment and Plan: -heart rate is controlled at this time. And she is in sinus rhythm. -continue with metoprolol if blood pressure allows. -Xarelto was on hold due to hemorrhagic cholecystitis. -surgery agrees and restarted on Xarelto (5) Hyperlipidemia: Code(s): E78.5 - Hyperlipidemia, unspecified Status: Acute Assessment and Plan: -resume atorvastatin when able. (6) Parkinson's disease: Code(s): G20.A1 - Parkinson's disease without dyskinesia, without mention of fluctuations Status: Acute Assessment and Plan: -continue with carbidopa levodopa (7) Obstructive sleep apnea: Code(s): G47.33 - Obstructive sleep apnea (adult) (pediatric) Status: Acute Assessment and Plan: -auto titrate to home settings. Plan Hypoxia mild still persist. Postoperative. Recheck chest x-ray. Incentive spirometry Subjective Date/time seen: 02/09/25 13:19 Interval history: Abdomen is sore. No nausea vomiting. Still on oxygen supplementation. Feels weak. Family at bedside and discussed with them. Review of Systems Review of Systems: All systems reviewed & are unremarkable except as noted in HPI and below Exam Narrative: General appearance: Well-developed, well-nourished Skin: Normal color Head: Normocephalic, nontraumatic Neck: Supple, nontender Chest and respiratory: Airway patent, no respiratory distress, no accessory muscle use Heart: Regular rate/rhythm Abdomen: Soft, mild incisional tenderness. Nondistended Vascular: Normal peripheral pulses, normal capillary refill. Musculoskeletal: Normal range of motion, nontender back Neurologic: Alert and oriented ?3, HR REPRESENTATIVE is normal as tested, no gross motor deficit Objective Data Vital Signs Vital Signs: Vital Signs - 24 hr 02/08/25 13:22 02/08/25 14:00 02/08/25 16:00 Temperature 98.9 F Pulse Rate 83 95 89 Respiratory Rate 20 26 H Blood Pressure 122/71 Pulse Oximetry 93 Oxygen Delivery Oxygen Flow Rate Fraction of Inspired Oxygen 02/08/25 16:00 02/08/25 16:00 02/08/25 18:00 Temperature Pulse Rate 74 96 Respiratory Rate Blood Pressure Pulse Oximetry 98 Oxygen Delivery Nasal Cannula Oxygen Flow Rate 1 Fraction of Inspired Oxygen 02/08/25 20:00 02/08/25 20:00 02/08/25 20:14 Temperature 98.1 F Pulse Rate 89 90 Respiratory Rate 24 H Blood Pressure 129/73 Pulse Oximetry 94 95 Oxygen Delivery Nasal Cannula Oxygen Flow Rate 1 Fraction of Inspired Oxygen 02/08/25 20:14 02/08/25 20:19 02/08/25 21:10 Temperature Pulse Rate 92 99 101 H Respiratory Rate 16 16 Blood Pressure Pulse Oximetry 92 Oxygen Delivery Autopap Oxygen Flow Rate Fraction of Inspired Oxygen 02/08/25 22:00 02/08/25 23:33 02/09/25 00:00 Temperature 96.7 F L Pulse Rate 88 89 Respiratory Rate 24 H Blood Pressure 129/63 Pulse Oximetry 98 94 Oxygen Delivery CPAP Oxygen Flow Rate Fraction of Inspired Oxygen 02/09/25 00:00 02/09/25 02:00 02/09/25 02:26 Temperature Pulse Rate 83 91 82 Respiratory Rate Blood Pressure Pulse Oximetry 95 Oxygen Delivery Autopap Oxygen Flow Rate Fraction of Inspired Oxygen 02/09/25 02:26 02/09/25 02:32 02/09/25 03:19 Temperature Pulse Rate 82 85 Respiratory Rate Blood Pressure Pulse Oximetry 96 Oxygen Delivery CPAP Oxygen Flow Rate Fraction of Inspired Oxygen 02/09/25 04:00 02/09/25 04:00 02/09/25 06:00 Temperature 97.6 F Pulse Rate 89 82 86 Respiratory Rate 24 H Blood Pressure 136/75 Pulse Oximetry 94 Oxygen Delivery Oxygen Flow Rate Fraction of Inspired Oxygen 02/09/25 06:30 02/09/25 08:00 02/09/25 08:00 Temperature 97.6 F Pulse Rate 66 Respiratory Rate 20 Blood Pressure 150/80 H Pulse Oximetry 95 96 96 Oxygen Delivery Nasal Cannula Nasal Cannula Oxygen Flow Rate 1 1 Fraction of Inspired Oxygen 36 02/09/25 08:00 02/09/25 08:07 02/09/25 08:09 Temperature Pulse Rate 106 H 96 Respiratory Rate 16 Blood Pressure Pulse Oximetry 96 Oxygen Delivery Nasal Cannula Oxygen Flow Rate 0.5 Fraction of Inspired Oxygen 02/09/25 08:24 02/09/25 10:00 02/09/25 11:53 Temperature 98.1 F Pulse Rate 123 H 82 82 Respiratory Rate 28 H Blood Pressure 118/67 Pulse Oximetry 90 Oxygen Delivery Oxygen Flow Rate Fraction of Inspired Oxygen 02/09/25 12:00 02/09/25 12:00 Temperature Pulse Rate 81 Respiratory Rate Blood Pressure Pulse Oximetry 90 Oxygen Delivery Nasal Cannula Oxygen Flow Rate 1 Fraction of Inspired Oxygen Intake/Output Intake/Output: Intake & Output 02/06/25 02/07/25 02/08/25 02/09/25 23:59 23:59 23:59 23:59 Intake Total 3390 950 1710 340 Output Total 925 1400 1250 400 Balance 2465 -450 460 -60 Meds/Results Medications: Active Medications Generic Name Dose Route Start Last Admin Trade Name Freq PRN Reason Stop Dose Admin Hydrocodone Bitart/Acetaminophen 1 tab 02/07/25 17:30 02/09/25 11:14 Hydrocodone/Acetaminophen (*Crx) 5-325 Mg Tablet PO 1 tab Q4H PRN Administration Pain Rated 4-6 Carbidopa/Levodopa 1 tablet 02/05/25 09:00 02/09/25 12:55 Carbidopa/Levodopa 25/100 Mg Tablet PO 1 tablet QID JAZ Administration Carbidopa/Levodopa 1 tablet 02/05/25 09:00 02/09/25 12:55 Carbidopa/Levodopa 12.5/50 Mg Tablet PO 1 tablet QID JAZ Administration Diltiazem HCl 120 mg 02/05/25 09:00 02/09/25 08:24 Diltiazem Hcl 60 Mg Tablet PO 120 mg DAILY JAZ Administration Escitalopram Oxalate 20 mg 02/05/25 09:00 02/09/25 08:24 Escitalopram Oxalate 10 Mg Tablet PO 20 mg DAILY JAZ Administration Hydromorphone HCl 0.5 mg 02/04/25 17:00 02/08/25 09:01 Hydromorphone Hcl Inj (*Crx) 1 Mg/Ml Syr IV PUSH 0.5 mg Q4H PRN Administration Pain Rated 7-10 Piperacillin Sod/Tazobactam 50 mls @ 100 mls/hr 02/05/25 00:00 02/09/25 11:14 Sod 3.375 gm/ Sodium Chloride IVPB 100 mls/hr Q6HR JAZ Administration Levalbuterol HCl 1.25 mg 02/06/25 18:00 02/09/25 08:06 Levalbuterol Neb 1.25 Mg/3 Ml INHALATION 1.25 mg Q6HRT JAZ Administration Lorazepam 0.5 mg 02/06/25 08:14 02/06/25 10:24 Lorazepam (*Crx) 0.5 Mg Tablet PO 0.5 mg Q6H PRN Administration Anxiety Metoprolol Succinate 200 mg 02/05/25 09:00 02/09/25 08:24 Metoprolol Succinate Ext Rel 100 Mg Tabcr PO 200 mg DAILY JAZ Administration Ondansetron HCl 4 mg 02/04/25 17:00 Ondansetron Inj 4 Mg/2 Ml Vial IV PUSH Q4H PRN Nausea Polyethylene Glycol 17 gm 02/08/25 16:55 02/09/25 08:29 Polyethylene Glycol 3350 17 Gm Powd.Pack PO 17 gm QAM PRN Administration Constipation Rivaroxaban 20 mg 02/08/25 17:00 02/08/25 17:06 Rivaroxaban 20 Mg Tablet PO 20 mg Q24H JAZ Administration Radiology Results: ITS Impressions Abdomen/Pelvis CT 02/04/25 15:44 IMPRESSION: 1. Likely hemorrhagic cholecystitis with intraluminal active contrast extravasation and both intraluminal and pericholecystic hemorrhage. 2. Diverticulosis. Abdomen Ultrasound 02/05/25 11:43 IMPRESSION: 1. Gallbladder slightly dilated and filled with probable hemorrhage. Underlying lesion cannot be excluded. 2. Probable cholecystitis. MRCP 02/06/25 11:59 IMPRESSION: 1. T1 hyperintense likely blood within and surrounding the gallbladder consistent with likely hemorrhagic cholecystitis. No evident cholelithiasis/choledocholithiasis or biliary ductal dilation. 2. Small right and very small left pleural effusions with dependent atelectasis in the bilateral lower lobes. 3. Cardiomegaly. Chest X-Ray 02/06/25 18:03 IMPRESSION: 1. No focal pulmonary lesions. Minimal blunting of costophrenic angle suggestive of minimal bilateral pleural effusion. 2. Severe scoliosis of the spine. Abdomen X-Ray 02/08/25 17:29 IMPRESSION: 1. Postsurgical changes of cholecystectomy. No radiographic evidence of mechanical bowel obstruction. 2. Severe scoliosis. Labs Labs: Laboratory Results - last 24 hr 02/09/25 01:49 Sodium 136 L Potassium 3.5 Chloride 106 Carbon Dioxide 27 Anion Gap 3 L BUN 13 Creatinine 0.63 L Estim Creat Clear Calc 82 Estimated GFR > 60 Glucose 144 H Calcium 7.8 L Total Bilirubin 1.1 AST 23 ALT 8 Alkaline Phosphatase 141 H Total Protein 6.4 Albumin 3.1 L
[2025-02-09] MEDS: RIVAROXABAN 20 MG TABLET PO (17:03)
[2025-02-09] MEDS: FUROSEMIDE INJ 40 MG/4 ML VIAL IV PUSH (17:03)
[2025-02-09 17:13] LABS: Procalcitonin 0.5 ng/mL
[2025-02-10] VITALS (9 sets, daily range): BP systolic 119–134; BP diastolic 65–82; PULSE 70–117; RESP 16–18; TEMP 36.4–36.7; O2SAT 92–96
[2025-02-10] MEDS: PIPERACILLIN/TAZOBACTAM SOD 3.375 GM in SODIUM CHLORIDE 0.9% IV 50 ML 100 ML IVPB ×5 (01:00→23:34)
[2025-02-10] MEDS: HYDROcodone/acetaminophen (*CRX) 5-325 MG TABLET 1 TAB PO ×2 (01:25→16:50)
[2025-02-10 04:57] LABS: Hematocrit 35.2 % (37.0-47.0); Hemoglobin 11.4 g/dL (12.0-15.0); Immature Granulocyte Percent A 0.7 % (0-0.5); Lymphocytes Absolute Auto 2.85 K/mm3 (0.9-3.2); Mean Corpuscular HGB Conc 32.4 g/dl (32-36); Mean Corpuscular Hemoglobin 30.4 pg (26-34); Mean Corpuscular Volume 93.9 fl (80-100); Nucleated Red Blood Cells Absolute Auto 0.030 K/mm3 (0.0-0.012); Nucleated Red Blood Cells Perc 0.3 % (0.0-0.2); Platelet Count Result 297 k/mm3 (150-375); Red Blood Count 3.75 M/mm3 (4.2-5.4); White Blood Count 11.0 K/mm3 (4.5-10.0)
[2025-02-10 05:23] LABS: Alanine Aminotransferase 13 U/L (6-35); Albumin Level 3.1 g/dL (3.5-5.1); Alkaline Phosphatase 140 U/L (38-126); Anion Gap 4 mmol/L (4-12); Aspartate Amino Transferase 26 U/L (14-36); Bilirubin,Total 0.9 mg/dL (0.2-1.3); Blood Urea Nitrogen 14 mg/dL (7-17); Calcium 8.1 mg/dL (8.4-10.2); Carbon Dioxide 32 mmol/L (22-30); Chloride 101 mmol/L (98-107); Estimated CRCL calculation 78 ml/min; Estimated Glomerular Filt Rate > 60; Glucose 105 mg/dL (65-110); Magnesium 1.9 mg/dL (1.6-2.3); Potassium 2.9 mmol/L (3.4-5.0); Sodium 137 mmol/L (137-145); Total Protein 6.3 g/dL (6.3-8.2)
[2025-02-10] MEDS: POTASSIUM CHLORIDE 20 MEQ ER TABLET 40 MEQ PO (09:03)
[2025-02-10] MEDS: ESCITALOPRAM OXALATE 10 MG TABLET 20 MG PO (09:03)
[2025-02-10] MEDS: CARBIDOPA/LEVODOPA 12.5/50 MG TABLET 1 TABLET PO ×4 (09:03→20:07)
[2025-02-10] MEDS: CARBIDOPA/LEVODOPA 25/100 MG TABLET 1 TABLET PO ×4 (09:03→20:07)
[2025-02-10] MEDS: METOPROLOL SUCCINATE EXT REL 100 MG TABCR 200 MG PO (09:05)
--- NOTE | 2025-02-10 11:43 | P.PNIM_ITS ---
Progress Note: A&P Assessment and Plan (1) Acute hemorrhagic cholecystitis: Code(s): K81.0 - Acute cholecystitis Status: Acute Assessment and Plan: -Abdomen/Pelvis CT 02/04/25 15:44 IMPRESSION: 1. Likely hemorrhagic cholecystitis with intraluminal active contrast extravasation and both intraluminal and pericholecystic hemorrhage. 2. Diverticulosis. -surgery has been consulted. -the patient has a history of AFib and has been on Xarelto which has been discontinued -status post cholecystectomy 02/07 -the patient has been started on Zosyn. -continue with pain management -diet as per surgery. -continue Zosyn (2) Elevated troponin: Code(s): R79.89 - Other specified abnormal findings of blood chemistry Status: Acute Assessment and Plan: -her initial troponin was mildly elevated but has been negative for the last 2. (3) Hypertension: Code(s): I10 - Essential (primary) hypertension Status: Acute Assessment and Plan: -continue with metoprolol if blood pressure allows. (4) Atrial fibrillation: Code(s): I48.91 - Unspecified atrial fibrillation Status: Acute Assessment and Plan: -heart rate is controlled at this time. And she is in sinus rhythm. -continue with metoprolol if blood pressure allows. -Xarelto was on hold due to hemorrhagic cholecystitis. -surgery agrees and restarted on Xarelto Continue metoprolol Intermittent AFib with RVR (5) Hyperlipidemia: Code(s): E78.5 - Hyperlipidemia, unspecified Status: Acute Assessment and Plan: -resume atorvastatin when able. (6) Parkinson's disease: Code(s): G20.A1 - Parkinson's disease without dyskinesia, without mention of fluctuations Status: Acute Assessment and Plan: -continue with carbidopa levodopa (7) Obstructive sleep apnea: Code(s): G47.33 - Obstructive sleep apnea (adult) (pediatric) Status: Acute Assessment and Plan: -auto titrate to home settings. Plan Hypoxia mild slowly improving Postoperative. Recheck chest x-ray with bilateral pneumonia. Received a dose of Lasix 02/09/2025. Incentive spirometry to continue. Off oxygen 02/10/2025. Bilateral pneumonia as suggested by chest x-ray. Minimal cough. WBC is minimally raised. Will continue with IV Zosyn for now. Subjective Date/time seen: 02/10/25 11:43 Interval history: Feels a little stronger. Still gets quite tachycardic with exertion. Abdomen is still sore. No nausea vomiting. Off oxygen now. She is from [facility] delete Review of Systems Review of Systems: All systems reviewed & are unremarkable except as noted in HPI and below Exam Narrative: General appearance: Well-developed, well-nourished Skin: Normal color Head: Normocephalic, nontraumatic Neck: Supple, nontender Chest and respiratory: Airway patent, no respiratory distress, no accessory muscle use Heart: Regular rate/rhythm Abdomen: Soft, mild incisional tenderness. Nondistended Vascular: Normal peripheral pulses, normal capillary refill. 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, no gross motor deficit Objective Data Vital Signs Vital Signs: Vital Signs - 24 hr 02/09/25 11:53 02/09/25 12:00 02/09/25 12:00 Temperature 98.1 F Pulse Rate 82 81 Respiratory Rate 28 H Blood Pressure 118/67 Pulse Oximetry 90 90 Oxygen Delivery Nasal Cannula Oxygen Flow Rate 1 Fraction of Inspired Oxygen 02/09/25 14:00 02/09/25 14:30 02/09/25 14:55 Temperature Pulse Rate 99 Respiratory Rate Blood Pressure Pulse Oximetry Oxygen Delivery Room Air Room Air Oxygen Flow Rate Fraction of Inspired Oxygen 02/09/25 15:35 02/09/25 16:00 02/09/25 20:00 Temperature 97.3 F L Pulse Rate 82 82 93 Respiratory Rate 18 Blood Pressure 113/70 Pulse Oximetry 95 Oxygen Delivery Oxygen Flow Rate Fraction of Inspired Oxygen 02/09/25 20:58 02/09/25 22:37 02/10/25 00:00 Temperature 97.6 F 97.5 F L Pulse Rate 85 96 70 Respiratory Rate 14 16 Blood Pressure 132/68 126/82 Pulse Oximetry 93 92 92 Oxygen Delivery Autopap Oxygen Flow Rate Fraction of Inspired Oxygen 02/10/25 00:00 02/10/25 02:20 02/10/25 04:00 Temperature Pulse Rate 86 90 Respiratory Rate Blood Pressure Pulse Oximetry Oxygen Delivery Autopap Oxygen Flow Rate Fraction of Inspired Oxygen 02/10/25 07:25 02/10/25 08:00 02/10/25 09:03 Temperature 98.0 F 97.6 F Pulse Rate 95 88 117 H Respiratory Rate 16 18 18 Blood Pressure 128/69 134/66 Pulse Oximetry 95 96 96 Oxygen Delivery Autopap Oxygen Flow Rate Fraction of Inspired Oxygen 36 02/10/25 09:03 02/10/25 09:05 Temperature Pulse Rate 107 H 117 H Respiratory Rate Blood Pressure Pulse Oximetry Oxygen Delivery Oxygen Flow Rate Fraction of Inspired Oxygen Intake/Output Intake/Output: Intake & Output 02/07/25 02/08/25 02/09/25 02/10/25 23:59 23:59 23:59 23:59 Intake Total 950 1710 560 520 Output Total 1400 1250 400 900 Balance -450 460 160 -380 Meds/Results Medications: Active Medications Generic Name Dose Route Start Last Admin Trade Name Freq PRN Reason Stop Dose Admin Hydrocodone Bitart/Acetaminophen 1 tab 02/07/25 17:30 02/10/25 01:25 Hydrocodone/Acetaminophen (*Crx) 5-325 Mg Tablet PO 1 tab Q4H PRN Administration Pain Rated 4-6 Carbidopa/Levodopa 1 tablet 02/05/25 09:00 02/10/25 09:03 Carbidopa/Levodopa 25/100 Mg Tablet PO 1 tablet QID JAZ Administration Carbidopa/Levodopa 1 tablet 02/05/25 09:00 02/10/25 09:03 Carbidopa/Levodopa 12.5/50 Mg Tablet PO 1 tablet QID JAZ Administration Diltiazem HCl 120 mg 02/05/25 09:00 02/10/25 09:04 Diltiazem Hcl 60 Mg Tablet PO 120 mg DAILY JAZ Administration Escitalopram Oxalate 20 mg 02/05/25 09:00 02/10/25 09:03 Escitalopram Oxalate 10 Mg Tablet PO 20 mg DAILY JAZ Administration Hydromorphone HCl 0.5 mg 02/04/25 17:00 02/08/25 09:01 Hydromorphone Hcl Inj (*Crx) 1 Mg/Ml Syr IV PUSH 0.5 mg Q4H PRN Administration Pain Rated 7-10 Piperacillin Sod/Tazobactam 50 mls @ 100 mls/hr 02/05/25 00:00 02/10/25 11:14 Sod 3.375 gm/ Sodium Chloride IVPB 100 mls/hr Q6HR JAZ Administration Levalbuterol HCl 1.25 mg 02/09/25 13:20 Levalbuterol Neb 1.25 Mg/3 Ml INHALATION Q6HRT PRN Wheezing Lorazepam 0.5 mg 02/06/25 08:14 02/06/25 10:24 Lorazepam (*Crx) 0.5 Mg Tablet PO 0.5 mg Q6H PRN Administration Anxiety Metoprolol Succinate 200 mg 02/05/25 09:00 02/10/25 09:05 Metoprolol Succinate Ext Rel 100 Mg Tabcr PO 200 mg DAILY JAZ Administration Ondansetron HCl 4 mg 02/04/25 17:00 Ondansetron Inj 4 Mg/2 Ml Vial IV PUSH Q4H PRN Nausea Polyethylene Glycol 17 gm 02/08/25 16:55 02/09/25 08:29 Polyethylene Glycol 3350 17 Gm Powd.Pack PO 17 gm QAM PRN Administration Constipation Rivaroxaban 20 mg 02/08/25 17:00 02/09/25 17:03 Rivaroxaban 20 Mg Tablet PO 20 mg Q24H JAZ Administration Radiology Results: ITS Impressions Abdomen/Pelvis CT 02/04/25 15:44 IMPRESSION: 1. Likely hemorrhagic cholecystitis with intraluminal active contrast extravasation and both intraluminal and pericholecystic hemorrhage. 2. Diverticulosis. Abdomen Ultrasound 02/05/25 11:43 IMPRESSION: 1. Gallbladder slightly dilated and filled with probable hemorrhage. Underlying lesion cannot be excluded. 2. Probable cholecystitis. MRCP 02/06/25 11:59 IMPRESSION: 1. T1 hyperintense likely blood within and surrounding the gallbladder consistent with likely hemorrhagic cholecystitis. No evident cholelithiasis/choledocholithiasis or biliary ductal dilation. 2. Small right and very small left pleural effusions with dependent atelectasis in the bilateral lower lobes. 3. Cardiomegaly. Abdomen X-Ray 02/08/25 17:29 IMPRESSION: 1. Postsurgical changes of cholecystectomy. No radiographic evidence of mechanical bowel obstruction. 2. Severe scoliosis. Chest X-Ray 02/09/25 14:47 Impression: Bilateral pneumonia Labs Labs: Laboratory Results - last 24 hr 02/09/25 02/10/25 16:23 04:39 WBC 11.0 H RBC 3.75 L Hgb 11.4 L Hct 35.2 L MCV 93.9 MCH 30.4 MCHC 32.4 RDW 14.6 H Plt Count 297 MPV 9.0 Immature Gran % (Auto) 0.7 H Neut % (Auto) 60.5 Lymph % (Auto) 25.9 Phillips % (Auto) 9.5 H Eos % (Auto) 3.0 Baso % (Auto) 0.4 Lymph # (Auto) 2.85 Phillips # (Auto) 1.0 H Eos # (Auto) 0.3 Baso # (Auto) 0.0 Abs Immat Gran (auto) 0.08 H Absolute Neuts (auto) 6.7 Absolute Nucleated RBC 0.030 H Nucleated RBC % 0.3 H Sodium 137 Potassium 2.9 L Chloride 101 Carbon Dioxide 32 H Anion Gap 4 BUN 14 Creatinine 0.66 L Estim Creat Clear Calc 78 Estimated GFR > 60 Glucose 105 Calcium 8.1 L Magnesium 1.9 Total Bilirubin 0.9 AST 26 ALT 13 Alkaline Phosphatase 140 H Total Protein 6.3 Albumin 3.1 L Procalcitonin 0.5
[2025-02-10] MEDS: RIVAROXABAN 20 MG TABLET PO (17:01)
[2025-02-11] VITALS (17 sets, daily range): BP systolic 108–138; BP diastolic 62–99; PULSE 78–138; RESP 16–22; TEMP 36.2–37.1; O2SAT 94–97
[2025-02-11 05:29] LABS: Hematocrit 35.0 % (37.0-47.0); Hemoglobin 11.2 g/dL (12.0-15.0); Immature Granulocyte Percent A 0.9 % (0-0.5); Lymphocytes Absolute Auto 2.89 K/mm3 (0.9-3.2); Mean Corpuscular HGB Conc 32.0 g/dl (32-36); Mean Corpuscular Hemoglobin 30.3 pg (26-34); Mean Corpuscular Volume 94.6 fl (80-100); Nucleated Red Blood Cells Absolute Auto 0.030 K/mm3 (0.0-0.012); Nucleated Red Blood Cells Perc 0.3 % (0.0-0.2); Platelet Count Result 307 k/mm3 (150-375); Red Blood Count 3.70 M/mm3 (4.2-5.4); White Blood Count 9.0 K/mm3 (4.5-10.0)
[2025-02-11] MEDS: PIPERACILLIN/TAZOBACTAM SOD 3.375 GM in SODIUM CHLORIDE 0.9% IV 50 ML 100 ML IVPB ×3 (05:33→21:12)
[2025-02-11 05:55] LABS: Alanine Aminotransferase 12 U/L (6-35); Albumin Level 2.9 g/dL (3.5-5.1); Alkaline Phosphatase 128 U/L (38-126); Anion Gap 3 mmol/L (4-12); Aspartate Amino Transferase 34 U/L (14-36); Bilirubin,Total 0.8 mg/dL (0.2-1.3); Blood Urea Nitrogen 15 mg/dL (7-17); Calcium 8.2 mg/dL (8.4-10.2); Carbon Dioxide 32 mmol/L (22-30); Chloride 102 mmol/L (98-107); Estimated CRCL calculation 81 ml/min; Estimated Glomerular Filt Rate > 60; Glucose 100 mg/dL (65-110); Magnesium 2.0 mg/dL (1.6-2.3); Potassium 3.2 mmol/L (3.4-5.0); Sodium 137 mmol/L (137-145); Total Protein 6.1 g/dL (6.3-8.2)
--- NOTE | 2025-02-11 08:03 | P.PNIM_ITS ---
Progress Note: A&P Assessment and Plan (1) Acute hemorrhagic cholecystitis: Code(s): K81.0 - Acute cholecystitis Status: Acute Assessment and Plan: -Abdomen/Pelvis CT 02/04/25 15:44 IMPRESSION: 1. Likely hemorrhagic cholecystitis with intraluminal active contrast extravasation and both intraluminal and pericholecystic hemorrhage. 2. Diverticulosis. -surgery has been consulted. -the patient has a history of AFib and has been on Xarelto which has been discontinued -status post cholecystectomy 02/07 -continue Zosyn. -continue with pain management -diet as per surgery. -blood culture negative (2) Elevated troponin: Code(s): R79.89 - Other specified abnormal findings of blood chemistry Status: Acute Assessment and Plan: -her initial troponin was mildly elevated but has been negative for the last 2. (3) Hypertension: Code(s): I10 - Essential (primary) hypertension Status: Acute Assessment and Plan: -continue with metoprolol if blood pressure allows. (4) Atrial fibrillation: Code(s): I48.91 - Unspecified atrial fibrillation Status: Acute Assessment and Plan: -heart rate is controlled at this time. And she is in sinus rhythm. -continue with metoprolol if blood pressure allows. -Xarelto was on hold due to hemorrhagic cholecystitis. -surgery agrees and restarted on Xarelto -Continue metoprolol -Intermittent AFib with RVR -Consult cardiology and started on amiodarone drip (5) Hyperlipidemia: Code(s): E78.5 - Hyperlipidemia, unspecified Status: Acute Assessment and Plan: -resume atorvastatin when able. (6) Parkinson's disease: Code(s): G20.A1 - Parkinson's disease without dyskinesia, without mention of fluctuations Status: Acute Assessment and Plan: -continue with carbidopa levodopa (7) Obstructive sleep apnea: Code(s): G47.33 - Obstructive sleep apnea (adult) (pediatric) Status: Acute Assessment and Plan: -auto titrate to home settings. Subjective Date/time seen: 02/11/25 08:03 Interval history: Patient complains of abdominal pain. Repeated CT abdomen/pelvis. Replaced potassium. WBC 9.0. Will continue Zosyn. Patient continues to have heart rate in 120. Consulted Cardiology and started amiodarone drip. Blood culture negative. Review of Systems Review of Systems: All systems reviewed & are unremarkable except as noted in HPI and below Constitutional: Constitutional: Reports as per HPI and Reports no additional constitutional complaints Eyes: Eyes: Reports as per HPI and Reports no additional eye complaints ENT: Reports system reviewed and no additional complaints, except as documented and Reports Normal hearing present Cardiovascular: Cardiovascular: Reports no additional cardiovascular complaints Respiratory: Respiratory: Reports as per HPI and Reports no additional respiratory complaints Gastrointestinal: Gastrointestinal: Reports as per HPI and Reports no additional gastrointestinal complaints Genitourinary: Genitourinary: Reports no additional female genitourinary complaints Musculoskeletal: Musculoskeletal: Reports no additional musculoskeletal complaints Integumentary/Breasts: Skin/Breast: Reports system reviewed and no additional complaints, except as docu Neurologic: Reports system reviewed and no additional complaints, except as documented and Reports Normal hearing present Psychiatric: Psychiatric: Reports no additional psychiatric complaints and Reports as per HPI Hematologic/Lymphatic: Hematologic/Lymphatic: Reports no additional hematologic/lymphatic complaints Allergic/Immunologic: Allergic/Immunologic: Reports no additional allergic/immunologic complaints Exam Narrative: General appearance: Well-developed, well-nourished Skin: Normal color Head: Normocephalic, nontraumatic Neck: Supple, nontender Chest and respiratory: Airway patent, no respiratory distress, no accessory muscle use Heart: Regular rate/rhythm Abdomen: Soft, mild incisional tenderness. Nondistended Vascular: Normal peripheral pulses, normal capillary refill. Musculoskeletal: Normal range of motion, nontender back Neurologic: Alert and oriented ?3, [employer] is normal as tested, no gross motor deficit Const: General: cooperative, healthy appearing, comfortable, no acute distress, well developed, awake, Physically active, average body habitus and well nourished Nutritional Appearance: average body habitus and well nourished Orientation/consciousness: oriented to person, oriented to place, oriented to time and patient oriented x3 Limitations: no limitations HENMT: Head: normal to inspection, No palpable skull fracture present, normocephalic, atraumatic and abrasion Ears: hearing grossly normal bilaterally and external ears normal Eyes: General: appearance normal, both eyes and all related structures Alignment and Position: alignment normal Periorbital: periorbital findings normal Eyelids: eyelids normal Pupils: Equal, round and reactive pupils present EOM: EOMs intact bilaterally Neck: Neck: normal visual inspection and full ROM Chest: Chest palpation & inspection: normal inspection of the chest Resp: Effort & Inspection: normal respiratory effort Auscultation: clear to auscultation bilaterally Cardio: Palpation: normal PMI Rate: regular rate Rhythm: regular rhythm Heart sounds: S1 normal heart sound present and S2 normal heart sound present Peripheral pulses: Peripheral pulses 2+ throughout GI: Inspection: normal to inspection Skin: General skin exam: normal color Lesions: no lesions Rashes: no rashes Trauma: no lacerations or abrasions Wounds: no wounds Hair: normal Nails: normal Neuro: General: oriented to person, oriented to place, oriented to time and patient oriented x3 Cranial nerves: Yes Equal, round and reactive pupils present and Yes Normal hearing present Cognition (Neuro): normal cognition Speech: normal speech Motor exam (neuro): 5/5 motor strength present throughout Sensory Exam: normal sensation Extrem: General: normal to inspection Right upper extremity: normal to inspection and shoulder/upper arm Left upper extremity: normal to inspection and shoulder/upper arm Right lower extremity: normal to inspection Left lower extremity: normal to inspection Psych: Appearance: grossly normal Mental Status: mental status grossly normal Speech and movement: Normal speech and movement present Affect: normal affect Attitude: cooperative Thought process: Normal thought process present Insight: Good insight present (Psych) Judgement: Good judgement present (Psych) Objective Data Vital Signs Vital Signs: Vital Signs - 24 hr 02/10/25 09:03 02/10/25 09:03 02/10/25 09:05 Temperature Pulse Rate 117 H 107 H 117 H Respiratory Rate 18 Blood Pressure Pulse Oximetry 96 Oxygen Delivery Autopap Fraction of Inspired Oxygen 36 02/10/25 12:00 02/10/25 12:00 02/10/25 16:00 Temperature 97.9 F Pulse Rate 82 101 H 87 Respiratory Rate 16 Blood Pressure 126/68 Pulse Oximetry 95 Oxygen Delivery Fraction of Inspired Oxygen 02/10/25 20:00 02/10/25 20:00 02/10/25 20:00 Temperature 98.0 F Pulse Rate 84 92 Respiratory Rate 16 Blood Pressure 119/65 Pulse Oximetry 96 Oxygen Delivery Room Air Fraction of Inspired Oxygen 11/23/25 22:05 02/11/25 00:00 02/11/25 00:00 Temperature 97.6 F Pulse Rate 78 84 Respiratory Rate 18 Blood Pressure 131/63 Pulse Oximetry 95 Oxygen Delivery Autopap Fraction of Inspired Oxygen 02/11/25 04:00 02/11/25 04:00 Temperature 98.4 F Pulse Rate 87 90 Respiratory Rate 18 Blood Pressure 138/74 Pulse Oximetry 95 Oxygen Delivery Fraction of Inspired Oxygen Intake/Output Intake/Output: Intake & Output 02/08/25 02/09/25 02/10/25 02/11/25 23:59 23:59 23:59 23:59 Intake Total 8460 627 8488 100 Output Total 3392 961 1040 Balance 055 798 0087 100 Meds/Results Medications: Active Medications Generic Name Dose Route Start Last Admin Trade Name Freq PRN Reason Stop Dose Admin Hydrocodone Bitart/Acetaminophen 1 tab 02/07/25 17:30 02/10/25 16:50 Hydrocodone/Acetaminophen (*Crx) 5-325 Mg Tablet PO 1 tab Q4H PRN Administration Pain Rated 4-6 Carbidopa/Levodopa 1 tablet 02/05/25 09:00 02/10/25 20:07 Carbidopa/Levodopa 25/100 Mg Tablet PO 1 tablet QID JAZ Administration Carbidopa/Levodopa 1 tablet 02/05/25 09:00 02/10/25 20:07 Carbidopa/Levodopa 12.5/50 Mg Tablet PO 1 tablet QID JAZ Administration Diltiazem HCl 120 mg 02/05/25 09:00 02/10/25 09:04 Diltiazem Hcl 60 Mg Tablet PO 120 mg DAILY JAZ Administration Escitalopram Oxalate 20 mg 02/05/25 09:00 02/10/25 09:03 Escitalopram Oxalate 10 Mg Tablet PO 20 mg DAILY JAZ Administration Hydromorphone HCl 0.5 mg 02/04/25 17:00 02/08/25 09:01 Hydromorphone Hcl Inj (*Crx) 1 Mg/Ml Syr IV PUSH 0.5 mg Q4H PRN Administration Pain Rated 7-10 Piperacillin Sod/Tazobactam 50 mls @ 100 mls/hr 02/05/25 00:00 02/11/25 06:03 Sod 3.375 gm/ Sodium Chloride IVPB Infused Q6HR JAZ Infusion Levalbuterol HCl 1.25 mg 02/09/25 13:20 Levalbuterol Neb 1.25 Mg/3 Ml INHALATION Q6HRT PRN Wheezing Lorazepam 0.5 mg 02/06/25 08:14 02/06/25 10:24 Lorazepam (*Crx) 0.5 Mg Tablet PO 0.5 mg Q6H PRN Administration Anxiety Metoprolol Succinate 200 mg 02/05/25 09:00 02/10/25 09:05 Metoprolol Succinate Ext Rel 100 Mg Tabcr PO 200 mg DAILY JAZ Administration Ondansetron HCl 4 mg 02/04/25 17:00 Ondansetron Inj 4 Mg/2 Ml Vial IV PUSH Q4H PRN Nausea Polyethylene Glycol 17 gm 02/08/25 16:55 02/09/25 08:29 Polyethylene Glycol 3350 17 Gm Powd.Pack PO 17 gm QAM PRN Administration Constipation Rivaroxaban 20 mg 02/08/25 17:00 02/10/25 17:01 Rivaroxaban 20 Mg Tablet PO 20 mg Q24H JAZ Administration Radiology Results: ITS Impressions Abdomen/Pelvis CT 02/04/25 15:44 IMPRESSION: 1. Likely hemorrhagic cholecystitis with intraluminal active contrast extravasation and both intraluminal and pericholecystic hemorrhage. 2. Diverticulosis. Abdomen Ultrasound 02/05/25 11:43 IMPRESSION: 1. Gallbladder slightly dilated and filled with probable hemorrhage. Underlying lesion cannot be excluded. 2. Probable cholecystitis. MRCP 02/06/25 11:59 IMPRESSION: 1. T1 hyperintense likely blood within and surrounding the gallbladder consistent with likely hemorrhagic cholecystitis. No evident cholelithiasis/choledocholithiasis or biliary ductal dilation. 2. Small right and very small left pleural effusions with dependent atelectasis in the bilateral lower lobes. 3. Cardiomegaly. Abdomen X-Ray 02/08/25 17:29 IMPRESSION: 1. Postsurgical changes of cholecystectomy. No radiographic evidence of mechanical bowel obstruction. 2. Severe scoliosis. Chest X-Ray 02/09/25 14:47 Impression: Bilateral pneumonia Labs Labs: Laboratory Results - last 24 hr 02/11/25 05:00 WBC 9.0 RBC 3.70 L Hgb 11.2 L Hct 35.0 L MCV 94.6 MCH 30.3 MCHC 32.0 RDW 14.9 H Plt Count 307 MPV 9.2 Immature Gran % (Auto) 0.9 H Neut % (Auto) 54.3 Lymph % (Auto) 32.1 Ralls % (Auto) 8.5 Eos % (Auto) 3.9 Baso % (Auto) 0.3 Lymph # (Auto) 2.89 Ralls # (Auto) 0.8 H Eos # (Auto) 0.4 H Baso # (Auto) 0.0 Abs Immat Gran (auto) 0.08 H Absolute Neuts (auto) 4.9 Absolute Nucleated RBC 0.030 H Nucleated RBC % 0.3 H Sodium 137 Potassium 3.2 L Chloride 102 Carbon Dioxide 32 H Anion Gap 3 L BUN 15 Creatinine 0.63 L Estim Creat Clear Calc 81 Estimated GFR > 60 Glucose 100 Calcium 8.2 L Magnesium 2.0 Total Bilirubin 0.8 AST 34 ALT 12 Alkaline Phosphatase 128 H Total Protein 6.1 L Albumin 2.9 L Quality VTE Prophylaxis VTE prophylaxis: mechanical ordered Hospitalist MIPS Advance Care Plan I have confirmed that the patient's Advanced Care Plan is present, code status is documented, or surrogate decision maker is listed in patient medical record.: Yes Medication Reconciliation I have utilized all available resources to obtain, update and review the p atients current medications (includes all prescriptions, OTC, herbals, cannabis, and nutritional supplements).: Yes
[2025-02-11] MEDS: POTASSIUM CHLORIDE 20 MEQ ER TABLET 40 MEQ PO (08:40)
[2025-02-11] MEDS: KCL 20 MEQ/SW 100 ML 100 ML 50 MEQ IVPB (08:40)
[2025-02-11] MEDS: CARBIDOPA/LEVODOPA 12.5/50 MG TABLET 1 TABLET PO ×4 (08:42→21:12)
[2025-02-11] MEDS: ESCITALOPRAM OXALATE 10 MG TABLET 20 MG PO (08:42)
[2025-02-11] MEDS: METOPROLOL SUCCINATE EXT REL 100 MG TABCR 200 MG PO (08:42)
[2025-02-11] MEDS: CARBIDOPA/LEVODOPA 25/100 MG TABLET 1 TABLET PO ×4 (08:42→21:12)
--- NOTE | 2025-02-11 09:54 | PCNWS ---
Weekly nutritional screen. Patient is tolerating current diet with adequate intake, 65-80% last 48 hours, improved. No weight loss reported. No nutritional needs at this time.
--- NOTE | 2025-02-11 12:47 | P.CDI_ITS ---
CDI Query Clarification Request Please review the clinical information below and clarify the respiratory diagn osis the patient is being treated for: * Hypoxia or hypoxemia without respiratory failure * Respiratory distress without respiratory failure * Acute respiratory failure with hypoxia * Acute respiratory failure with hypercapnia * Acute respiratory failure with hypoxia and hypercapnia * Acute on chronic respiratory failure with hypoxia * Acute on chronic respiratory failure with hypercapnia * Acute on chronic respiratory failure with hypoxia and hypercapnia * Acute respiratory distress syndrome (ARDS) * Chronic respiratory failure with hypoxia * Chronic respiratory failure with hypercapnia * Chronic respiratory failure with hypoxia and hypercapnia * Other explanation clinical findings, please specify * Unable to determine Plan Hypoxia mild slowly improving Postoperative. Recheck chest x-ray with bilateral pneumonia. Received a dose of Lasix 02/09/2025. Incentive spirometry to continue. Off oxygen 02/10/2025. Bilateral pneumonia as suggested by chest x-ray. Minimal cough. WBC is minimally raised. Will continue with IV Zosyn for now. Assessment and Plan (1) Acute hemorrhagic cholecystitis: Code(s): K81.0 - Acute cholecystitis Status: Acute Assessment and Plan: -Abdomen/Pelvis CT 02/04/25 15:44 IMPRESSION: 1. Likely hemorrhagic cholecystitis with intraluminal active contrast extravasation and both intraluminal and pericholecystic hemorrhage. 2. Diverticulosis. -surgery has been consulted. -the patient has a history of AFib and has been on Xarelto which has been discontinued -status post cholecystectomy 02/07 -the patient has been started on Zosyn. -continue with pain management -diet as per surgery. -continue Zosyn (2) Elevated troponin: Code(s): R79.89 - Other specified abnormal findings of blood chemistry Status: Acute Assessment and Plan: -her initial troponin was mildly elevated but has been negative for the last 2. (3) Hypertension: Code(s): I10 - Essential (primary) hypertension Status: Acute Assessment and Plan: -continue with metoprolol if blood pressure allows. (4) Atrial fibrillation: Code(s): I48.91 - Unspecified atrial fibrillation Status: Acute Assessment and Plan: -heart rate is controlled at this time. And she is in sinus rhythm. -continue with metoprolol if blood pressure allows. -Xarelto was on hold due to hemorrhagic cholecystitis. -surgery agrees and restarted on Xarelto Continue metoprolol Intermittent AFib with RVR (5) Hyperlipidemia: Code(s): E78.5 - Hyperlipidemia, unspecified Status: Acute Assessment and Plan: -resume atorvastatin when able. (6) Parkinson's disease: Code(s): G20.A1 - Parkinson's disease without dyskinesia, without mention of fluctuations Status: Acute Assessment and Plan: -continue with carbidopa levodopa (7) Obstructive sleep apnea: Code(s): G47.33 - Obstructive sleep apnea (adult) (pediatric) Status: Acute Assessment and Plan: -auto titrate to home settings. Plan Hypoxia mild slowly improving Postoperative. Recheck chest x-ray with bilateral pneumonia. Received a dose of Lasix 02/09/2025. Incentive spirometry to continue. Off oxygen 02/10/2025. Bilateral pneumonia as suggested by chest x-ray. Minimal cough. WBC is minimally raised. Will continue with IV Zosyn for now. <Renetta nAna RN - Last Filed: 02/11/25 12:50> Clarified Diagnosis Clarified Diagnosis: Hypoxia or hypoxemia without respiratory failure <Alexandre Preciado MD - Last Filed: 02/11/25 16:32>
--- NOTE | 2025-02-11 12:47 | WPDCDIQUERY2 ---
CDI Query Clarification Request Please review the clinical information below and clarify the respiratory diagnosis the patient is being treated for: Hypoxia or hypoxemia without respiratory failure Respiratory distress without respiratory failure Acute respiratory failure with hypoxia Acute respiratory failure with hypercapnia Acute respiratory failure with hypoxia and hypercapnia Acute on chronic respiratory failure with hypoxia Acute on chronic respiratory failure with hypercapnia Acute on chronic respiratory failure with hypoxia and hypercapnia Acute respiratory distress syndrome (ARDS) Chronic respiratory failure with hypoxia Chronic respiratory failure with hypercapnia Chronic respiratory failure with hypoxia and hypercapnia Other explanation clinical findings, please specify Unable to determine Plan Hypoxia mild slowly improving Postoperative. Recheck chest x-ray with bilateral pneumonia. Received a dose of Lasix 02/09/2025. Incentive spirometry to continue. Off oxygen 02/10/2025. Bilateral pneumonia as suggested by chest x-ray. Minimal cough. WBC is minimally raised. Will continue with IV Zosyn for now. Assessment and Plan (1) Acute hemorrhagic cholecystitis: Code(s): K81.0 - Acute cholecystitis Status: Acute Assessment and Plan: -Abdomen/Pelvis CT 02/04/25 15:44 IMPRESSION: 1. Likely hemorrhagic cholecystitis with intraluminal active contrast extravasation and both intraluminal and pericholecystic hemorrhage. 2. Diverticulosis. -surgery has been consulted. -the patient has a history of AFib and has been on Xarelto which has been discontinued -status post cholecystectomy 02/07 -the patient has been started on Zosyn. -continue with pain management -diet as per surgery. -continue Zosyn (2) Elevated troponin: Code(s): R79.89 - Other specified abnormal findings of blood chemistry Status: Acute Assessment and Plan: -her initial troponin was mildly elevated but has been negative for the last 2. (3) Hypertension: Code(s): I10 - Essential (primary) hypertension Status: Acute Assessment and Plan: -continue with metoprolol if blood pressure allows. (4) Atrial fibrillation: Code(s): I48.91 - Unspecified atrial fibrillation Status: Acute Assessment and Plan: -heart rate is controlled at this time. And she is in sinus rhythm. -continue with metoprolol if blood pressure allows. -Xarelto was on hold due to hemorrhagic cholecystitis. -surgery agrees and restarted on Xarelto Continue metoprolol Intermittent AFib with RVR (5) Hyperlipidemia: Code(s): E78.5 - Hyperlipidemia, unspecified Status: Acute Assessment and Plan: -resume atorvastatin when able. (6) Parkinson's disease: Code(s): G20.A1 - Parkinson's disease without dyskinesia, without mention of fluctuations Status: Acute Assessment and Plan: -continue with carbidopa levodopa (7) Obstructive sleep apnea: Code(s): G47.33 - Obstructive sleep apnea (adult) (pediatric) Status: Acute Assessment and Plan: -auto titrate to home settings. Plan Hypoxia mild slowly improving Postoperative. Recheck chest x-ray with bilateral pneumonia. Received a dose of Lasix 02/09/2025. Incentive spirometry to continue. Off oxygen 02/10/2025. Bilateral pneumonia as suggested by chest x-ray. Minimal cough. WBC is minimally raised. Will continue with IV Zosyn for now. <Renetta Anna RN - Last Filed: 02/11/25 12:50> Clarified Diagnosis Clarified Diagnosis: Hypoxia or hypoxemia without respiratory failure <Alexandre Preciado MD - Last Filed: 02/11/25 16:32>
--- NOTE | 2025-02-11 15:44 | PM.CNCAR ---
Assessment and Plan Assessment and plan (1) Atrial fibrillation: Code(s): I48.91 - Unspecified atrial fibrillation Status: Acute (2) Hyperlipidemia: Code(s): E78.5 - Hyperlipidemia, unspecified Status: Acute (3) Hypertension: Code(s): I10 - Essential (primary) hypertension Status: Acute (4) Elevated troponin: Code(s): R79.89 - Other specified abnormal findings of blood chemistry Status: Acute Plan Assessment: Paroxysmal atrial fibrillation now with RVR-on chronic anticoagulation with Xarelto; recurrence of AFib most likely related to underlying stress of acute cholecystitis and inability to take her rate control meds Acute hemorrhagic cholecystitis status post laparoscopic cholecystectomy Hypertension Hyperlipidemia Hypokalemia with potassium of 3.2 Plan: Rate control meds have now been resumed. Continue Cardizem 120 mg daily and metoprolol 200 mg daily. Despite this she has RVR with rates in the 130s to 160s Recommend amiodarone 300 mg IV bolus followed by drip Xarelto was held for surgery and has been resumed. Continue Xarelto TTE Continue atorvastatin Replace magnesium and potassium to keep magnesium greater than 2 and potassium greater than 4 Cardiology will continue to follow History of Present Illness History of Present Illness Consult date/time: 02/11/25 15:44 Reason For Visit: Acute cholecystitis, Elevated troponin Narrative: 74-year-old female with history of paroxysmal atrial fibrillation on anticoagulation with Xarelto, cardioversion in November of 2023, hypertension, hyperlipidemia, Parkinson's disease, depression, obstructive sleep apnea was admitted with chief complaints of severe back and left flank pain associated with nausea and emesis. CT abdomen and pelvis showed acute hemorrhagic cholecystitis. She was started on IV antibiotics and general surgery was consulted. She underwent laparoscopic cholecystectomy and drainage of a large amount of hematoma and clot on 02/07/2025. During this hospitalization patient was noted to have AFib with RVR with rates in the 130s to 160s and cardiology is consulted for further management of AFib. Patient states she has palpitations and dizziness with rapid rates. She states that she has a history of paroxysmal atrial fibrillation. She had some AFib with RVR in November of last year at which time she underwent cardioversion and Cardizem was added to beta-john for rate control. After that she she has not had further AFib recurrences until this hospitalization. She denies any chest pain, leg swelling, recent weight gain, presyncope, syncope. Telemetry shows AFib with RVR with rates in the 130s to 160s. Workup: Potassium: 3 point NT proBNP: 1940 CT abdomen pelvis: Likely hemorrhagic cholecystitis with intraluminal active contrast extravasation and both intraluminal and pericholecystic hemorrhage. 2. Diverticulosis. Chest x-ray: streaky left infrahilar opacities and favor atelectasis over pneumonia. The patient was started on Zosyn. Surgery has been consulted. The patient was given the dilaudid, Zosyn, and Zofran in the emergency room. The patient is being admitted to inpatient status on 02/05/2025. Review of Systems Review of Systems: Complete review of systems was performed and pertinent positives are reported in the HPI. [facility] Past Medical History Medical History Obstructive sleep apnea Depression Hypertension Parkinson's disease Hyperlipidemia Atrial fibrillation Surgical History Surgical History H/O bilateral hip replacements History of bilateral knee replacement H/O repair of rotator cuff History of back surgery Social History Social History Social History: The patient stated that she was . She has 2 children. She is retired. Code status: Full code. Smoking status: Never smoker Alcohol intake: never Substance use: never Lack of Transportation: No Lack of Food: Never True Current Housing: I Have Housing Concerned About Future Housing: No Difficulty Paying Gas/Electric Bills: No Difficulty Paying for Meds: No Currently Unemployed: No Education: Master's Degree or Higher Difficulty w/ Childcare or Family Care: No Spiritual care concerns: No Meds Home Medications and Allergies Home Medications ?Medication ?Instructions ?Recorded ?Confirmed ?Type atorvastatin 10 mg tablet 10 mg PO DAILY 02/04/25 02/04/25 History carbidopa 25 mg-levodopa 100 mg 1.5 tablet PO QID 02/04/25 02/04/25 History tablet cholecalciferol (vitamin D3) 50 2,000 unit PO DAILY 02/04/25 02/04/25 History mcg (2,000 unit) tablet (D3 DOTS) diltiazem HCl 120 mg tablet 120 mg PO DAILY 02/04/25 02/04/25 History escitalopram oxalate 20 mg tablet 20 mg PO DAILY 02/04/25 02/04/25 History methylphenidate HCl 36 mg 36 mg PO .every morning 02/04/25 02/04/25 History tablet,extended release 24 hr metoprolol succinate 200 mg 200 mg PO DAILY 02/04/25 02/04/25 History tablet,extended release 24 hr multivitamin-ferrous 1 tablet PO DAILY 02/04/25 02/04/25 History fumarate-folic acid 18 mg-400 mcg tablet (Centrum Women) rivaroxaban 20 mg tablet (Xarelto) 20 mg PO Q24H 02/04/25 02/04/25 History hydrocodone 5 mg-acetaminophen 325 1 tablet PO Q6H PRN pain #20 tabs 02/08/25 Rx mg tablet Allergies Allergy/AdvReac Type Severity Reaction Status Date / Time No Known Allergies Allergy Verified 02/04/25 21:35 Vital Signs Vital Signs - 24 hr 02/10/25 16:00 02/10/25 20:00 02/10/25 20:00 Temperature 36.7 C Pulse Rate 87 84 Respiratory Rate 16 Blood Pressure 119/65 Pulse Oximetry 96 Oxygen Delivery Room Air 02/10/25 20:00 02/10/25 22:05 02/11/25 00:00 Temperature Pulse Rate 92 78 Respiratory Rate Blood Pressure Pulse Oximetry Oxygen Delivery Autopap 02/11/25 00:00 02/11/25 04:00 02/11/25 04:00 Temperature 36.4 C 36.9 C Pulse Rate 84 87 90 Respiratory Rate 18 18 Blood Pressure 131/63 138/74 Pulse Oximetry 95 95 Oxygen Delivery 02/11/25 08:40 02/11/25 08:42 02/11/25 08:42 Temperature 36.4 C Pulse Rate 119 H 118 H 118 H Respiratory Rate 18 18 Blood Pressure 108/64 Pulse Oximetry 95 95 Oxygen Delivery Room Air 02/11/25 08:42 02/11/25 12:00 02/11/25 12:00 Temperature 36.2 C L Pulse Rate 105 H 138 H 119 H Respiratory Rate 17 Blood Pressure 124/62 Pulse Oximetry 96 Oxygen Delivery Exam Narrative: General: Alert oriented x3, no acute distress Neck: Supple, no JVD Chest: Bilaterally clear to auscultation, no rales or rhonchi Cardiac: S1, S2 +, irregularly irregular rhythm, no murmurs or rubs Extremities: No pedal edema, no skin rash Neurologic: Alert and oriented x3, no focal neurological deficits Results Labs and Meds 02/11/25 05:00 02/11/25 05:00 Lab results: Cardiac Enzymes 02/11/25 Range/Units 05:00 AST 34 (14-36) U/L CBC 02/11/25 Range/Units 05:00 WBC 9.0 (4.5-10.0) K/mm3 RBC 3.70 L (4.2-5.4) M/mm3 Hgb 11.2 L (12.0-15.0) g/dL Hct 35.0 L (37.0-47.0) % Plt Count 307 (150-375) k/mm3 Lymph # (Auto) 2.89 (0.9-3.2) K/mm3 [place] # (Auto) 0.8 H (0.1-0.6) K/mm3 Eos # (Auto) 0.4 H (0-0.3) K/mm3 Baso # (Auto) 0.0 (0.0-0.1) K/mm3 Comprehensive Metabolic Panel 02/11/25 Range/Units 05:00 Sodium 137 (137-145) mmol/L Potassium 3.2 L (3.4-5.0) mmol/L Chloride 102 (98-107) mmol/L Carbon Dioxide 32 H (22-30) mmol/L BUN 15 (7-17) mg/dL Creatinine 0.63 L (0.7-1.0) mg/dL Glucose 100 (65-110) mg/dL Calcium 8.2 L (8.4-10.2) mg/dL AST 34 (14-36) U/L ALT 12 (6-35) U/L Alkaline Phosphatase 128 H (38-126) U/L Total Protein 6.1 L (6.3-8.2) g/dL Albumin 2.9 L (3.5-5.1) g/dL Intake and Output 02/10/25 02/11/25 02/11/25 23:59 07:59 15:59 Intake Total 1370 100 440 Output Total 200 Balance 1170 100 440 Intake: IV 50 100 Piperacillin/Tazobactam Sod 3. 50 100 375 gm In Sodium Chloride 0.9% IV 50 ml @ 100 mls/hr IVPB Q6HR [facility] Rx#:[id number] Oral 1320 440 Output: Urine 200 Other: # Unmeasured Voids 1 1 1 Number of Bowel Movements Today 1 2 Patient Weight 02/11/25 23:59 Weight 103.1 kg
[2025-02-11] MEDS: RIVAROXABAN 20 MG TABLET PO (16:28)
--- NOTE | 2025-02-11 18:07 | PC.NURSE ---
Report given to this nurse by Endy
--- NOTE | 2025-02-11 18:41 | PC.NURSE ---
Patient, Natalya De La Rosa, was transferred to IMU Room 214-01. Patient/family oriented to unit policies and general routines including ID bracelet, bed and alarms, visiting hours, pain management, procedures, bathroom and other care routines, personal items, smoking policy, room service/diet, and visiting hours. Patient encouraged to report perceived risks to care and to ask questions if they do not understand what they are told or what they should do.
--- NOTE | 2025-02-11 18:46 | ECG_ITS ---
Test Date: 2025-02-11 18:58:33 Measurements Intervals [place] Rate: 106 P: 0 AL: 0 QRS: 14 QRSD: 97 T: 19 QT: 332 QTc: 441 Interpretive Statements ATRIAL FIBRILLATION WITH RAPID VENTRICULAR RESPONSE Electronically Signed On 02-12-2025 05:52:32 [employer]ATE [employer] ENGINEER by Adrian Early D.O
[2025-02-12] VITALS (28 sets, daily range): BP systolic 105–153; BP diastolic 46–86; PULSE 62–112; RESP 16–24; TEMP 36.4–36.9; O2SAT 95–99
--- NOTE | 2025-02-12 | ECHO_ITS ---
Patient Info Name: Natalya De La Rosa Age: 74 years : 1950 Gender: Female Ht: 67 in Wt: 227 lbs BSA: 2.25 m2 HR: 87 bpm BP: 141 / 72 mmHg Heart Rhythm: Sinus Rhythm Technical Quality: Good Exam Date: 02/12/2025 12:20 PM Patient Status: I Admit Date: 02/04/2025 Exam Type: CA echo doppler color flow Complete two-dimensional, color flow and Doppler transthoracic echocardiogram is performed. Staff Referring Physician: Alexandre Preciado Vacuum Drier Tender: Pete Ramirez III Attending Provider: Gaston Perry Summary 1. Complete two-dimensional, color flow and Doppler transthoracic echocardiogram is performed. 2. Normal left ventricular size thickness systolic and diastolic function. 3. Left atrial enlargement. 4. Trivial MR. 5. Right ventricular enlargement with preserved systolic function. 6. Mild tricuspid regurgitation estimated RV systolic pressure of 40. 7. Sinus rhythm at the time of this exam. Left Ventricle Left ventricular chamber dimension is normal. Left ventricular systolic function is normal, estimated at 60-65. The left ventricular diastolic function is normal. Right Ventricle Right ventricular chamber dimension is mildly enlarged. Right ventricular systolic function is normal. Left Atria Left atrial chamber dimension is moderately enlarged. Right Atria Right atrial chamber dimension is normal. Aortic Valve The aortic valve is normal. Pulmonic Valve The pulmonic valve is normal. Mitral Valve The mitral valve has normal leaflets. There is trace mitral valve regurgitation. The mitral valve annulus is mildly calcified. Tricuspid Valve The tricuspid valve leaflets are normal. There is mild tricuspid valve regurgitation. Pericardium/Pleural The pericardium appears normal. Aorta The aortic root size at the sinus of Valsalva is normal. Left Ventricular Outflow Tract Name Value Normal LVOT 2D LVOT Diameter 2.1 cm LVOT Doppler LVOT Peak Velocity 79 cm/s LVOT Peak Gradient 3 mmHg LVOT Mean Gradient 1 mmHg LVOT VTI 17 cm LVOT VTI/AV VTI Ratio 0.8 LVOT Stroke Volume 58 ml LVOT CO 3.9 l/min LVOT CI 1.7 l/min/m2 Pulmonic Valve Name Value Normal PV Doppler PV Peak Velocity 82 cm/s PV Peak Gradient 3 mmHg PV Mean Gradient 1 mmHg Mitral Valve Name Value Normal MV Doppler MV Peak Gradient 6 mmHg MV Mean Gradient 2 mmHg MV Area (Cont Eq VTI) 2.0 cm2 MV Diastolic Function MV E Peak Velocity 117 cm/s MV A Peak Velocity 63 cm/s MV E/A 1.9 MV Decel Time (PW) 243 ms MV Annular TDI MV E/e' (Septal) 21.4 MV E/e' (Lateral) 11.6 MV E/e' (Average) 16.5 Tricuspid Valve Name Value Normal TV Regurgitation Doppler TR Peak Velocity 296 cm/s TR Peak Gradient 16 mmHg Estimated PAP/RSVP RA Pressure 10 mmHg <=5 PA Systolic Pressure 45 mmHg <36 RV Systolic Pressure 45 mmHg <36 TV Annular TDI TV Lateral Loraine s' Velocity 11.8 cm/s >=9.5 Aortic Valve Name Value Normal AV Doppler AV Peak Velocity 112 cm/s AV Peak Gradient 5 mmHg AV Mean Gradient 3 mmHg AV VTI 21 cm AV Area (Cont Eq VTI) 2.7 cm2 >=3.0 AV Area (Cont Eq Harley) 2.4 cm2 AV DI (Harley) 0.70 AV Regurgitation 2D LVOT Area 3.5 cm2 Ventricles Name Value Normal LV Dimensions 2D/MM IVS Diastolic Thickness (2D) 1.0 cm 0.6-1.0 LVID Diastole (2D) 4.8 cm 3.8-5.2 LVIW Diastolic Thickness (2D) 1.0 cm 0.6-0.9 LVID Systole (2D) 3.1 cm 2.2-3.5 LVOT Diameter 2.1 cm LV Mass (2D Cubed) 169.30 g 67.00-162.00 LV Mass Index (2D Cubed) 75 g/m2 43-95 Relative Wall Thickness (2D) 0.39 <=0.42 LV Fractional Shortening/Ejection Fraction 2D/MM LV Fractional Shortening (2D) 37 % 27-45 LV EF (2D Teichholz) 67 % LV Diastolic Volume (4C MOD) 75 ml LV EF (4C MOD) 57 % LV Diastolic Volume (2C MOD) 74 ml LV EF (2C MOD) 63 % LV Diastolic Volume (BP MOD) 78 ml 46-106 LV Diastolic Volume Index (BP MOD) 35 ml/m2 29-61 LV Systolic Volume (BP MOD) 32 ml 14-42 LV Systolic Volume Index (BP MOD) 14 ml/m2 8-24 LV EF (BP MOD) 59 % 54-74 LV Diastolic Length (4C) 7.3 cm LV Systolic Length (4C) 5.7 cm LV Stroke Volume (4C MOD) 43 ml Atria Name Value Normal LA Dimensions LA Volume (4C A-L) 95 ml LA Volume (BP A-L) 103 ml RA Dimensions RA Systolic Major [place] Length (4C) 7.8 cm 2.2-2.8 RA Area (4C) 33.7 cm2 <=18.0 Report Signatures
[2025-02-12] MEDS: PIPERACILLIN/TAZOBACTAM SOD 3.375 GM in SODIUM CHLORIDE 0.9% IV 50 ML 100 ML IVPB ×4 (02:36→23:50)
[2025-02-12 04:37] LABS: Hematocrit 37.8 % (37.0-47.0); Hemoglobin 12.1 g/dL (12.0-15.0); Mean Corpuscular HGB Conc 32.0 g/dl (32-36); Mean Corpuscular Hemoglobin 30.7 pg (26-34); Mean Corpuscular Volume 95.9 fl (80-100); Platelet Count Result 356 k/mm3 (150-375); Red Blood Count 3.94 M/mm3 (4.2-5.4); White Blood Count 10.9 K/mm3 (4.5-10.0)
[2025-02-12 05:09] LABS: Alanine Aminotransferase 11 U/L (6-35); Albumin Level 3.4 g/dL (3.5-5.1); Alkaline Phosphatase 120 U/L (38-126); Anion Gap 4 mmol/L (4-12); Aspartate Amino Transferase 27 U/L (14-36); Bilirubin,Total 0.7 mg/dL (0.2-1.3); Blood Urea Nitrogen 11 mg/dL (7-17); Calcium 8.4 mg/dL (8.4-10.2); Carbon Dioxide 30 mmol/L (22-30); Chloride 101 mmol/L (98-107); Estimated CRCL calculation 76 ml/min; Estimated Glomerular Filt Rate > 60; Glucose 108 mg/dL (65-110); Potassium 3.7 mmol/L (3.4-5.0); Sodium 135 mmol/L (137-145); Total Protein 6.7 g/dL (6.3-8.2)
--- NOTE | 2025-02-12 08:56 | P.PNCA_ITS ---
Progress Note: A&P Assessment and Plan (1) Atrial fibrillation: Code(s): I48.91 - Unspecified atrial fibrillation Status: Acute (2) Hyperlipidemia: Code(s): E78.5 - Hyperlipidemia, unspecified Status: Acute (3) Hypertension: Code(s): I10 - Essential (primary) hypertension Status: Acute (4) Elevated troponin: Code(s): R79.89 - Other specified abnormal findings of blood chemistry Status: Acute Plan Assessment: Paroxysmal atrial fibrillation now with RVR-on chronic anticoagulation with Xarelto; recurrence of AFib most likely related to underlying stress of acute cholecystitis and inability to take her rate control meds Acute hemorrhagic cholecystitis status post laparoscopic cholecystectomy Hypertension Hyperlipidemia Hypokalemia-resolved Plan: Rate control meds have now been resumed. Will increase Cardizem to 240 mg daily today and continue metoprolol 200 mg daily. Continues to have RVR despite addition of amiodarone IV will continue amiodarone today If continues to have poor rate control will plan for JAMIN/CV in am continue xarelto for AC TTE is pending Continue atorvastatin Replace magnesium and potassium to keep magnesium greater than 2 and potassium greater than 4 Cardiology will continue to follow NPO after midnight Subjective Date/time seen: 02/12/25 08:56 Interval history: Date of Service 02/12/25: Patient sitting up in chair. She reports feeling short of breath. No chest pain or pressure. No palpitations. Denies any dizziness or feeling light headed. Review of Systems Review of Systems: All systems reviewed & are unremarkable except as noted in HPI and below Exam Narrative: General: Alert and oriented. NAD Neck: No JVD Resp: decreased BS in bases bilaterally CV: irreg irreg-tachycardia GI: abd round tender Ext: trace bilateral LE edema Objective Data Vital Signs Vital Signs: Vital Signs - 24 hr 02/11/25 12:00 02/11/25 12:00 02/11/25 16:00 Temperature 36.2 C L Pulse Rate 138 H 119 H 106 H Respiratory Rate 17 Blood Pressure 124/62 Pulse Oximetry 96 Oxygen Delivery 02/11/25 16:00 02/11/25 18:00 02/11/25 18:30 Temperature 36.6 C 36.6 C Pulse Rate 123 H 110 H 110 H Respiratory Rate 16 20 Blood Pressure 111/69 127/71 Pulse Oximetry 97 94 Oxygen Delivery 02/11/25 19:00 02/11/25 19:25 02/11/25 19:26 Temperature Pulse Rate 117 H 106 H 106 H Respiratory Rate Blood Pressure 127/71 Pulse Oximetry Oxygen Delivery 02/11/25 19:57 02/11/25 19:59 02/11/25 20:00 Temperature 36.9 C Pulse Rate 97 101 H 92 Respiratory Rate 18 Blood Pressure 120/72 Pulse Oximetry 95 Oxygen Delivery 02/11/25 21:40 02/11/25 22:00 02/11/25 22:00 Temperature Pulse Rate 107 H 101 H 101 H Respiratory Rate Blood Pressure 130/99 H 130/99 H Pulse Oximetry 94 Oxygen Delivery Autopap 02/11/25 22:00 02/11/25 23:56 02/11/25 23:56 Temperature 37.1 C Pulse Rate 111 H 90 90 Respiratory Rate 22 H Blood Pressure 123/80 123/80 Pulse Oximetry 95 Oxygen Delivery 02/12/25 00:00 02/12/25 01:55 02/12/25 01:55 Temperature Pulse Rate 90 90 88 Respiratory Rate Blood Pressure 153/86 H 153/86 H Pulse Oximetry Oxygen Delivery 02/12/25 02:00 02/12/25 02:40 02/12/25 02:40 Temperature Pulse Rate 88 85 85 Respiratory Rate Blood Pressure 153/86 H 153/86 H Pulse Oximetry Oxygen Delivery 02/12/25 02:40 02/12/25 04:00 02/12/25 04:08 Temperature 36.5 C Pulse Rate 85 85 85 Respiratory Rate 18 Blood Pressure 153/86 H 144/80 H Pulse Oximetry 97 Oxygen Delivery 02/12/25 04:08 02/12/25 06:00 02/12/25 06:00 Temperature Pulse Rate 85 87 76 Respiratory Rate Blood Pressure 144/80 H 141/72 H Pulse Oximetry Oxygen Delivery 02/12/25 06:09 02/12/25 07:55 Temperature 36.4 C Pulse Rate 87 90 Respiratory Rate 24 H Blood Pressure 141/72 H 152/84 H Pulse Oximetry 95 Oxygen Delivery Intake/Output Intake/Output: Intake & Output 02/09/25 02/10/25 02/11/25 02/12/25 23:59 23:59 23:59 23:59 Intake Total 560 2610 2048.3 239.7 Output Total 400 1310 Balance 160 1300 2048.3 239.7 Meds/Results Medications: Active Medications Generic Name Dose Route Start Last Admin Trade Name Freq PRN Reason Stop Dose Admin Hydrocodone Bitart/Acetaminophen 1 tab 02/07/25 17:30 02/10/25 16:50 Hydrocodone/Acetaminophen (*Crx) 5-325 Mg Tablet PO 1 tab Q4H PRN Administration Pain Rated 4-6 Carbidopa/Levodopa 1 tablet 02/05/25 09:00 02/11/25 21:12 Carbidopa/Levodopa 25/100 Mg Tablet PO 1 tablet QID JAZ Administration Carbidopa/Levodopa 1 tablet 02/05/25 09:00 02/11/25 21:12 Carbidopa/Levodopa 12.5/50 Mg Tablet PO 1 tablet QID JAZ Administration Diltiazem HCl 120 mg 02/05/25 09:00 02/11/25 09:16 Diltiazem Hcl 60 Mg Tablet PO Not Given DAILY JAZ Escitalopram Oxalate 20 mg 02/05/25 09:00 02/11/25 08:42 Escitalopram Oxalate 10 Mg Tablet PO 20 mg DAILY JAZ Administration Hydromorphone HCl 0.5 mg 02/04/25 17:00 02/08/25 09:01 Hydromorphone Hcl Inj (*Crx) 1 Mg/Ml Syr IV PUSH 0.5 mg Q4H PRN Administration Pain Rated 7-10 Piperacillin Sod/Tazobactam 50 mls @ 100 mls/hr 02/11/25 21:00 02/12/25 02:36 Sod 3.375 gm/ Sodium Chloride IVPB 100 mls/hr Q6H JAZ Administration Amiodarone HCl/Dextrose 360 mg in 200 mls @ 16.667 mls/hr 02/12/25 00:45 02/12/25 06:09 Nexterone 360 Mg/D5w 200 Ml IV CONT 0.5 mg/min .Q12H JAZ 16.67 mls/hr 0.5 MG/MIN Infusion Levalbuterol HCl 1.25 mg 02/09/25 13:20 Levalbuterol Neb 1.25 Mg/3 Ml INHALATION Q6HRT PRN Wheezing Lorazepam 0.5 mg 02/06/25 08:14 02/06/25 10:24 Lorazepam (*Crx) 0.5 Mg Tablet PO 0.5 mg Q6H PRN Administration Anxiety Metoprolol Succinate 200 mg 02/05/25 09:00 02/11/25 08:42 Metoprolol Succinate Ext Rel 100 Mg Tabcr PO 200 mg DAILY JAZ Administration Ondansetron HCl 4 mg 02/04/25 17:00 Ondansetron Inj 4 Mg/2 Ml Vial IV PUSH Q4H PRN Nausea Perflutren Lipid Microsphere 0 ml 02/11/25 16:37 Perflutren Lipid Microspheres 1.5 Ml Vial Diluted To 10 Ml Total Volume IV PUSH 02/14/25 16:38 ONCE PRN adequate visualization Protocol Polyethylene Glycol 17 gm 02/08/25 16:55 02/09/25 08:29 Polyethylene Glycol 3350 17 Gm Powd.Pack PO 17 gm QAM PRN Administration Constipation Rivaroxaban 20 mg 02/08/25 17:00 02/11/25 16:28 Rivaroxaban 20 Mg Tablet PO 20 mg Q24H JAZ Administration Radiology Results: ITS Impressions Abdomen/Pelvis CT 02/04/25 15:44 IMPRESSION: 1. Likely hemorrhagic cholecystitis with intraluminal active contrast extravasa tion and both intraluminal and pericholecystic hemorrhage. 2. Diverticulosis. Abdomen Ultrasound 02/05/25 11:43 IMPRESSION: 1. Gallbladder slightly dilated and filled with probable hemorrhage. Underlying lesion cannot be excluded. 2. Probable cholecystitis. MRCP 02/06/25 11:59 IMPRESSION: 1. T1 hyperintense likely blood within and surrounding the gallbladder consistent with likely hemorrhagic cholecystitis. No evident cholelithiasis/choledocholithiasis or biliary ductal dilation. 2. Small right and very small left pleural effusions with dependent atelectasis in the bilateral lower lobes. 3. Cardiomegaly. Abdomen X-Ray 02/08/25 17:29 IMPRESSION: 1. Postsurgical changes of cholecystectomy. No radiographic evidence of mechanical bowel obstruction. 2. Severe scoliosis. Chest X-Ray 02/09/25 14:47 Impression: Bilateral pneumonia Labs Labs: Laboratory Results - last 24 hr 02/12/25 04:25 WBC 10.9 H RBC 3.94 L Hgb 12.1 Hct 37.8 MCV 95.9 MCH 30.7 MCHC 32.0 RDW 15.3 H Plt Count 356 MPV 9.0 Sodium 135 L Potassium 3.7 Chloride 101 Carbon Dioxide 30 Anion Gap 4 BUN 11 Creatinine 0.68 L Estim Creat Clear Calc 76 Estimated GFR > 60 Glucose 108 Calcium 8.4 Total Bilirubin 0.7 AST 27 ALT 11 Alkaline Phosphatase 120 Total Protein 6.7 Albumin 3.4 L
[2025-02-12] MEDS: CARBIDOPA/LEVODOPA 25/100 MG TABLET 1 TABLET PO ×4 (09:12→21:09)
[2025-02-12] MEDS: METOPROLOL SUCCINATE EXT REL 100 MG TABCR 200 MG PO (09:12)
[2025-02-12] MEDS: CARBIDOPA/LEVODOPA 12.5/50 MG TABLET 1 TABLET PO ×4 (09:13→21:08)
[2025-02-12] MEDS: HYDROcodone/acetaminophen (*CRX) 5-325 MG TABLET 1 TAB PO ×2 (09:13→14:21)
[2025-02-12] MEDS: ESCITALOPRAM OXALATE 10 MG TABLET 20 MG PO (09:13)
--- NOTE | 2025-02-12 09:13 | PCOTNOTE ---
The patient treatment was not able to be completed getting medication and one for pain. Will plan to continue treatment per plan of care.
[2025-02-12] MEDS: dilTIAZem HCL CD 240 MG CAP.24HR PO (09:16)
--- NOTE | 2025-02-12 11:40 | ECG_ITS ---
Test Date: 2025-02-12 11:51:34 Measurements Intervals [place] Rate: 83 P: 37 TX: 192 QRS: -1 QRSD: 92 T: 16 QT: 389 QTc: 459 Interpretive Statements SINUS RHYTHM WITH FREQUENT SUPRAVENTRICULAR PREMATURE COMPLEXES POSSIBLE LEFT ATRIAL ENLARGEMENT [-0.1mV P-WAVE IN V1/V2] LOW QRS VOLTAGE IN PRECORDIAL LEADS [QRS DEFLECTION < 1.0 mV IN CHEST LEADS] POOR R-WAVE PROGRESSION ABNORMAL RHYTHM ECG Compared to ECG 02/11/2025 18:58:33 SINUS RHYTHM REPLACES ATRIAL FIBRILLATION Electronically Signed On 02-12-2025 17:31:07 KICK PLATE INSTALLER by Praneeth Barnes M.D.
[2025-02-12] MEDS: AMIODARONE HCL 200 MG TABLET PO ×2 (13:02→21:08)
--- NOTE | 2025-02-12 16:24 | P.PNIM_ITS ---
Progress Note: A&P Assessment and Plan (1) Acute hemorrhagic cholecystitis: Code(s): K81.0 - Acute cholecystitis Status: Acute Assessment and Plan: -Abdomen/Pelvis CT 02/04/25 15:44 IMPRESSION: 1. Likely hemorrhagic cholecystitis with intraluminal active contrast extravasation and both intraluminal and pericholecystic hemorrhage. 2. Diverticulosis. -surgery has been consulted. -the patient has a history of AFib and has been on Xarelto which has been discontinued -status post cholecystectomy 02/07 -continue Zosyn. -continue with pain management -diet as per surgery. -blood culture negative (2) Elevated troponin: Code(s): R79.89 - Other specified abnormal findings of blood chemistry Status: Acute Assessment and Plan: -her initial troponin was mildly elevated but has been negative for the last 2. (3) Hypertension: Code(s): I10 - Essential (primary) hypertension Status: Acute Assessment and Plan: -continue with metoprolol if blood pressure allows. (4) Atrial fibrillation: Code(s): I48.91 - Unspecified atrial fibrillation Status: Acute Assessment and Plan: -heart rate is controlled at this time. And she is in sinus rhythm. -continue with metoprolol if blood pressure allows. -Xarelto was on hold due to hemorrhagic cholecystitis. -surgery agrees and restarted on Xarelto -Continue metoprolol 200mg, and Diltiazem 240mg per cardiology -Intermittent AFib with RVR -Consult cardiology and started on amiodarone drip (5) Hyperlipidemia: Code(s): E78.5 - Hyperlipidemia, unspecified Status: Acute Assessment and Plan: -resume atorvastatin when able. (6) Parkinson's disease: Code(s): G20.A1 - Parkinson's disease without dyskinesia, without mention of fluctuations Status: Acute Assessment and Plan: -continue with carbidopa levodopa (7) Obstructive sleep apnea: Code(s): G47.33 - Obstructive sleep apnea (adult) (pediatric) Status: Acute Assessment and Plan: -auto titrate to home settings. Subjective Date/time seen: 02/12/25 16:24 Interval history: Comfortable at bedside EKG this morning noted Sinus rhythm with frequent premature complexes Review of Systems Review of Systems: All systems reviewed & are unremarkable except as noted in HPI and below Constitutional: Constitutional: Reports as per HPI and Reports no additional constitutional complaints Eyes: Eyes: Reports as per HPI and Reports no additional eye complaints ENT: Reports system reviewed and no additional complaints, except as documented and Reports Normal hearing present Cardiovascular: Cardiovascular: Reports no additional cardiovascular complaints Respiratory: Respiratory: Reports as per HPI and Reports no additional respiratory complaints Gastrointestinal: Gastrointestinal: Reports as per HPI and Reports no additional gastrointestinal complaints Genitourinary: Genitourinary: Reports no additional female genitourinary complaints Musculoskeletal: Musculoskeletal: Reports no additional musculoskeletal complaints Integumentary/Breasts: Skin/Breast: Reports system reviewed and no additional complaints, except as docu Neurologic: Reports system reviewed and no additional complaints, except as documented and Reports Normal hearing present Psychiatric: Psychiatric: Reports no additional psychiatric complaints and Reports as per HPI Hematologic/Lymphatic: Hematologic/Lymphatic: Reports no additional hematologic/lymphatic complaints Allergic/Immunologic: Allergic/Immunologic: Reports no additional allergic/immunologic complaints Exam Narrative: General appearance: Well-developed, well-nourished Skin: Normal color Head: Normocephalic, nontraumatic Neck: Supple, nontender Chest and respiratory: Airway patent, no respiratory distress, no accessory muscle use Heart: Regular rate/rhythm Abdomen: Soft, mild incisional tenderness. Nondistended Vascular: Normal peripheral pulses, normal capillary refill. Musculoskeletal: Normal range of motion, nontender back Neurologic: Alert and oriented ?3, [employer] is normal as tested, no gross motor deficit Const: General: cooperative, healthy appearing, comfortable, no acute distress, well developed, awake, Physically active, average body habitus and well nourished Nutritional Appearance: average body habitus and well nourished Orientation/consciousness: oriented to person, oriented to place, oriented to time and patient oriented x3 Limitations: no limitations HENMT: Head: normal to inspection, No palpable skull fracture present, normocephalic, atraumatic and abrasion Ears: hearing grossly normal bilaterally and external ears normal Eyes: General: appearance normal, both eyes and all related structures Alignment and Position: alignment normal Periorbital: periorbital findings normal Eyelids: eyelids normal Pupils: Equal, round and reactive pupils present EOM: EOMs intact bilaterally Neck: Neck: normal visual inspection and full ROM Chest: Chest palpation & inspection: normal inspection of the chest Resp: Effort & Inspection: normal respiratory effort Auscultation: clear to auscultation bilaterally Cardio: Palpation: normal PMI Rate: regular rate Rhythm: regular rhythm Heart sounds: S1 normal heart sound present and S2 normal heart sound present Peripheral pulses: Peripheral pulses 2+ throughout GI: Inspection: normal to inspection Skin: General skin exam: normal color Lesions: no lesions Rashes: no rashes Trauma: no lacerations or abrasions Wounds: no wounds Hair: normal Nails: normal Neuro: General: oriented to person, oriented to place, oriented to time and patient oriented x3 Cranial nerves: Yes Equal, round and reactive pupils present and Yes Normal hearing present Cognition (Neuro): normal cognition Speech: normal speech Motor exam (neuro): 5/5 motor strength present throughout Sensory Exam: normal sensation Extrem: General: normal to inspection Right upper extremity: normal to inspection and shoulder/upper arm Left upper extremity: normal to inspection and shoulder/upper arm Right lower extremity: normal to inspection Left lower extremity: normal to inspection Psych: Appearance: grossly normal Mental Status: mental status grossly normal Speech and movement: Normal speech and movement present Affect: normal affect Attitude: cooperative Thought process: Normal thought process present Insight: Good insight present (Psych) Judgement: Good judgement present (Psych) Objective Data Vital Signs Vital Signs: Vital Signs - 24 hr 02/11/25 18:00 02/11/25 18:30 02/11/25 19:00 Temperature 98 F Pulse Rate 110 H 110 H 117 H Respiratory Rate 20 Blood Pressure 127/71 127/71 Pulse Oximetry 94 Oxygen Delivery 02/11/25 19:25 02/11/25 19:26 02/11/25 19:57 Temperature Pulse Rate 106 H 106 H 97 Respiratory Rate Blood Pressure Pulse Oximetry Oxygen Delivery 02/11/25 19:59 02/11/25 20:00 02/11/25 21:40 Temperature 98.4 F Pulse Rate 101 H 92 107 H Respiratory Rate 18 Blood Pressure 120/72 Pulse Oximetry 95 94 Oxygen Delivery Autopap 02/11/25 22:00 02/11/25 22:00 02/11/25 22:00 Temperature Pulse Rate 101 H 101 H 111 H Respiratory Rate Blood Pressure 130/99 H 130/99 H Pulse Oximetry Oxygen Delivery 02/11/25 23:56 02/11/25 23:56 02/12/25 00:00 Temperature 98.8 F Pulse Rate 90 90 90 Respiratory Rate 22 H Blood Pressure 123/80 123/80 Pulse Oximetry 95 Oxygen Delivery 02/12/25 01:55 02/12/25 01:55 02/12/25 02:00 Temperature Pulse Rate 90 88 88 Respiratory Rate Blood Pressure 153/86 H 153/86 H Pulse Oximetry Oxygen Delivery 02/12/25 02:40 02/12/25 02:40 02/12/25 02:40 Temperature Pulse Rate 85 85 85 Respiratory Rate Blood Pressure 153/86 H 153/86 H 153/86 H Pulse Oximetry Oxygen Delivery 02/12/25 04:00 02/12/25 04:08 02/12/25 04:08 Temperature 97.7 F Pulse Rate 85 85 85 Respiratory Rate 18 Blood Pressure 144/80 H 144/80 H Pulse Oximetry 97 Oxygen Delivery 02/12/25 06:00 02/12/25 06:00 02/12/25 06:09 Temperature Pulse Rate 87 76 87 Respiratory Rate Blood Pressure 141/72 H 141/72 H Pulse Oximetry Oxygen Delivery 02/12/25 07:55 02/12/25 08:00 02/12/25 08:00 Temperature 97.6 F Pulse Rate 90 110 H Respiratory Rate 24 H Blood Pressure 152/84 H Pulse Oximetry 95 Oxygen Delivery Room Air 02/12/25 08:00 02/12/25 09:12 02/12/25 09:13 Temperature Pulse Rate 105 H 110 H 112 H Respiratory Rate 16 Blood Pressure Pulse Oximetry 95 Oxygen Delivery Room Air 02/12/25 10:00 02/12/25 10:00 02/12/25 10:13 Temperature Pulse Rate 110 H 110 H 98 Respiratory Rate 24 H Blood Pressure 118/66 Pulse Oximetry 99 Oxygen Delivery 02/12/25 11:20 02/12/25 11:58 02/12/25 12:00 Temperature 98.4 F Pulse Rate 78 63 86 Respiratory Rate 20 20 Blood Pressure 110/62 110/46 L Pulse Oximetry 96 96 Oxygen Delivery 02/12/25 12:00 02/12/25 12:00 02/12/25 13:02 Temperature Pulse Rate 80 76 Respiratory Rate Blood Pressure Pulse Oximetry Oxygen Delivery Room Air 02/12/25 14:00 02/12/25 14:03 02/12/25 16:08 Temperature 98.2 F Pulse Rate 68 68 67 Respiratory Rate 20 Blood Pressure 106/48 L Pulse Oximetry 97 Oxygen Delivery Intake/Output Intake/Output: Intake & Output 02/09/25 02/10/25 02/11/25 02/12/25 23:59 23:59 23:59 23:59 Intake Total 560 2610 2048.3 1301.3 Output Total 400 1310 Balance 160 1300 2048.3 1301.3 Meds/Results Medications: Active Medications Generic Name Dose Route Start Last Admin Trade Name Freq PRN Reason Stop Dose Admin Hydrocodone Bitart/Acetaminophen 1 tab 02/07/25 17:30 02/12/25 14:21 Hydrocodone/Acetaminophen (*Crx) 5-325 Mg Tablet PO 1 tab Q4H PRN Administration Pain Rated 4-6 Amiodarone HCl 200 mg 02/12/25 21:00 Amiodarone Hcl 200 Mg Tablet PO Q12HR JAZ Carbidopa/Levodopa 1 tablet 02/05/25 09:00 02/12/25 13:03 Carbidopa/Levodopa 25/100 Mg Tablet PO 1 tablet QID JAZ Administration Carbidopa/Levodopa 1 tablet 02/05/25 09:00 02/12/25 13:02 Carbidopa/Levodopa 12.5/50 Mg Tablet PO 1 tablet QID JAZ Administration Diltiazem HCl 240 mg 02/12/25 09:00 02/12/25 09:16 Diltiazem Hcl Cd 240 Mg Cap.24hr PO 240 mg QAM JAZ Administration Escitalopram Oxalate 20 mg 02/05/25 09:00 02/12/25 09:13 Escitalopram Oxalate 10 Mg Tablet PO 20 mg DAILY JAZ Administration Hydromorphone HCl 0.5 mg 02/04/25 17:00 02/08/25 09:01 Hydromorphone Hcl Inj (*Crx) 1 Mg/Ml Syr IV PUSH 0.5 mg Q4H PRN Administration Pain Rated 7-10 Piperacillin Sod/Tazobactam 50 mls @ 100 mls/hr 02/12/25 18:00 Sod 3.375 gm/ Sodium Chloride IVPB Q6H JAZ Levalbuterol HCl 1.25 mg 02/09/25 13:20 Levalbuterol Neb 1.25 Mg/3 Ml INHALATION Q6HRT PRN Wheezing Lorazepam 0.5 mg 02/06/25 08:14 02/06/25 10:24 Lorazepam (*Crx) 0.5 Mg Tablet PO 0.5 mg Q6H PRN Administration Anxiety Metoprolol Succinate 200 mg 02/05/25 09:00 02/12/25 09:12 Metoprolol Succinate Ext Rel 100 Mg Tabcr PO 200 mg DAILY JAZ Administration Ondansetron HCl 4 mg 02/04/25 17:00 Ondansetron Inj 4 Mg/2 Ml Vial IV PUSH Q4H PRN Nausea Perflutren Lipid Microsphere 0 ml 02/11/25 16:37 Perflutren Lipid Microspheres 1.5 Ml Vial Diluted To 10 Ml Total Volume IV PUSH 02/14/25 16:38 ONCE PRN adequate visualization Protocol Polyethylene Glycol 17 gm 02/08/25 16:55 02/09/25 08:29 Polyethylene Glycol 3350 17 Gm Powd.Pack PO 17 gm QAM PRN Administration Constipation Rivaroxaban 20 mg 02/08/25 17:00 02/11/25 16:28 Rivaroxaban 20 Mg Tablet PO 20 mg Q24H JAZ Administration Radiology Results: ITS Impressions Abdomen/Pelvis CT 02/04/25 15:44 IMPRESSION: 1. Likely hemorrhagic cholecystitis with intraluminal active contrast extravasation and both intraluminal and pericholecystic hemorrhage. 2. Diverticulosis. Abdomen Ultrasound 02/05/25 11:43 IMPRESSION: 1. Gallbladder slightly dilated and filled with probable hemorrhage. Underlying lesion cannot be excluded. 2. Probable cholecystitis. MRCP 02/06/25 11:59 IMPRESSION: 1. T1 hyperintense likely blood within and surrounding the gallbladder consistent with likely hemorrhagic cholecystitis. No evident cholelithiasis/choledocholithiasis or biliary ductal dilation. 2. Small right and very small left pleural effusions with dependent atelectasis in the bilateral lower lobes. 3. Cardiomegaly. Abdomen X-Ray 02/08/25 17:29 IMPRESSION: 1. Postsurgical changes of cholecystectomy. No radiographic evidence of mechanical bowel obstruction. 2. Severe scoliosis. Chest X-Ray 02/12/25 12:07 Impression: CHF. Superimposed probable pneumonia. The findings appear improved compared to t he previous study Abdomen CT 02/12/25 15:12 IMPRESSION: 1. Limited noncontrast examination is not optimal to evaluate vascular structur es and solid viscera. 2. Postsurgical changes of recent cholecystectomy. Ill-defined 4 to 5 cm size collection of fluid at the surgical bed, likely representing postsurgical seroma. No evidence of well-circumscribed abscess. No free fluid or free air in the upper peritoneal cavity. 3. Moderate size right pleural effusion. Labs Labs: Laboratory Results - last 24 hr 02/12/25 04:25 WBC 10.9 H RBC 3.94 L Hgb 12.1 Hct 37.8 MCV 95.9 MCH 30.7 MCHC 32.0 RDW 15.3 H Plt Count 356 MPV 9.0 Sodium 135 L Potassium 3.7 Chloride 101 Carbon Dioxide 30 Anion Gap 4 BUN 11 Creatinine 0.68 L Estim Creat Clear Calc 76 Estimated GFR > 60 Glucose 108 Calcium 8.4 Total Bilirubin 0.7 AST 27 ALT 11 Alkaline Phosphatase 120 Total Protein 6.7 Albumin 3.4 L Quality VTE Prophylaxis VTE prophylaxis: mechanical ordered
[2025-02-12] MEDS: RIVAROXABAN 20 MG TABLET PO (18:38)
[2025-02-13] VITALS (20 sets, daily range): BP systolic 105–147; BP diastolic 54–59; PULSE 63–79; RESP 14–20; TEMP 36.4–36.8; O2SAT 4–98
[2025-02-13 04:08] LABS: Hematocrit 32.6 % (37.0-47.0); Hemoglobin 10.3 g/dL (12.0-15.0); Immature Granulocyte Percent A 0.5 % (0-0.5); Lymphocytes Absolute Auto 2.27 K/mm3 (0.9-3.2); Mean Corpuscular HGB Conc 31.6 g/dl (32-36); Mean Corpuscular Hemoglobin 30.2 pg (26-34); Mean Corpuscular Volume 95.6 fl (80-100); Nucleated Red Blood Cells Absolute Auto 0.000 K/mm3 (0.0-0.012); Nucleated Red Blood Cells Perc 0.0 % (0.0-0.2); Platelet Count Result 311 k/mm3 (150-375); Red Blood Count 3.41 M/mm3 (4.2-5.4); White Blood Count 8.6 K/mm3 (4.5-10.0)
[2025-02-13 04:25] LABS: Alanine Aminotransferase 6 U/L (6-35); Albumin Level 2.9 g/dL (3.5-5.1); Alkaline Phosphatase 113 U/L (38-126); Anion Gap 1 mmol/L (4-12); Aspartate Amino Transferase 29 U/L (14-36); Bilirubin,Total 0.8 mg/dL (0.2-1.3); Blood Urea Nitrogen 14 mg/dL (7-17); Calcium 8.3 mg/dL (8.4-10.2); Carbon Dioxide 31 mmol/L (22-30); Chloride 101 mmol/L (98-107); Estimated CRCL calculation 73 ml/min; Estimated Glomerular Filt Rate > 60; Glucose 99 mg/dL (65-110); Magnesium 2.0 mg/dL (1.6-2.3); Potassium 3.9 mmol/L (3.4-5.0); Sodium 133 mmol/L (137-145); Total Protein 5.9 g/dL (6.3-8.2)
[2025-02-13] MEDS: PIPERACILLIN/TAZOBACTAM SOD 3.375 GM in SODIUM CHLORIDE 0.9% IV 50 ML 100 ML IVPB ×3 (05:57→17:25)
[2025-02-13] MEDS: CARBIDOPA/LEVODOPA 12.5/50 MG TABLET 1 TABLET PO ×4 (08:04→20:41)
[2025-02-13] MEDS: CARBIDOPA/LEVODOPA 25/100 MG TABLET 1 TABLET PO ×4 (08:05→20:41)
[2025-02-13] MEDS: ESCITALOPRAM OXALATE 10 MG TABLET 20 MG PO (08:07)
[2025-02-13] MEDS: dilTIAZem HCL CD 240 MG CAP.24HR PO (08:07)
[2025-02-13] MEDS: AMIODARONE HCL 200 MG TABLET PO ×2 (08:07→20:41)
[2025-02-13] MEDS: METOPROLOL SUCCINATE EXT REL 100 MG TABCR 200 MG PO (08:11)
--- NOTE | 2025-02-13 08:51 | PM.PNCARD ---
Progress Note: A&P Assessment and Plan (1) Atrial fibrillation: Code(s): I48.91 - Unspecified atrial fibrillation Status: Acute (2) Hyperlipidemia: Code(s): E78.5 - Hyperlipidemia, unspecified Status: Acute (3) Hypertension: Code(s): I10 - Essential (primary) hypertension Status: Acute (4) Elevated troponin: Code(s): R79.89 - Other specified abnormal findings of blood chemistry Status: Acute Plan Assessment: Paroxysmal atrial fibrillation now with RVR-on chronic anticoagulation with Xarelto; recurrence of AFib most likely related to underlying stress of acute cholecystitis and inability to take her rate control meds Acute hemorrhagic cholecystitis status post laparoscopic cholecystectomy Hypertension Hyperlipidemia Hypokalemia-resolved Plan: she converted to NSR overnight. Will continue diltiazem at 240 mg daily, Metoprolol at 100mg BID and amiodarone changed to 200 mg BID x 1 week then 200 mg daily thereafter. continue xarelto for AC TTE demonstrates a normal EF with no significant valvular abnormalities. Continue atorvastatin Replace magnesium and potassium to keep magnesium greater than 2 and potassium greater than 4 Cardiology will see prn, please call with any further questions or concerns. Subjective Date/time seen: 02/13/25 08:51 Interval history: Date of Service 02/12/25: Patient sitting up in chair. She reports feeling short of breath. No chest pain or pressure. No palpitations. Denies any dizziness or feeling light headed. Date of Service 02/13/25: Patient sitting up in chair. She is feeling much improved. No chest pain or shortness of breath. No dizziness or palpitations. She is anxious to go home. Review of Systems Review of Systems: Complete review of systems was performed and pertinent positives are reported in the HPI. All systems reviewed & are unremarkable except as noted in HPI and below Exam Narrative: General: Alert and oriented. NAD Neck: No JVD Resp: decreased BS in bases bilaterally CV: irreg irreg-tachycardia GI: abd round tender Ext: trace bilateral LE edema Objective Data Vital Signs Vital Signs: Vital Signs - 24 hr 02/12/25 09:12 02/12/25 09:13 02/12/25 10:00 Temperature Pulse Rate 110 H 112 H 110 H Respiratory Rate 16 Blood Pressure Pulse Oximetry 95 Oxygen Delivery Room Air 02/12/25 10:00 02/12/25 10:13 02/12/25 11:20 Temperature 36.9 C Pulse Rate 110 H 98 78 Respiratory Rate 24 H 20 Blood Pressure 118/66 110/62 Pulse Oximetry 99 96 Oxygen Delivery 02/12/25 11:58 02/12/25 12:00 02/12/25 12:00 Temperature Pulse Rate 63 86 Respiratory Rate 20 Blood Pressure 110/46 L Pulse Oximetry 96 Oxygen Delivery Room Air 02/12/25 12:00 02/12/25 13:02 02/12/25 14:00 Temperature Pulse Rate 80 76 68 Respiratory Rate Blood Pressure Pulse Oximetry Oxygen Delivery 02/12/25 14:03 02/12/25 16:00 02/12/25 16:00 Temperature Pulse Rate 68 72 Respiratory Rate Blood Pressure Pulse Oximetry Oxygen Delivery Room Air 02/12/25 16:08 02/12/25 18:00 02/12/25 20:00 Temperature 36.8 C Pulse Rate 67 73 62 Respiratory Rate 20 Blood Pressure 106/48 L Pulse Oximetry 97 Oxygen Delivery 02/12/25 21:03 02/12/25 21:08 02/12/25 22:00 Temperature 36.7 C Pulse Rate 63 88 70 Respiratory Rate 20 Blood Pressure 105/49 L Pulse Oximetry 95 Oxygen Delivery 02/12/25 22:24 02/13/25 00:00 02/13/25 00:38 Temperature 36.8 C Pulse Rate 74 68 70 Respiratory Rate 20 Blood Pressure 120/56 L Pulse Oximetry 95 98 Oxygen Delivery Autopap 02/13/25 01:58 02/13/25 02:00 02/13/25 04:00 Temperature Pulse Rate 76 71 64 Respiratory Rate Blood Pressure Pulse Oximetry 4 L Oxygen Delivery Autopap 02/13/25 05:15 02/13/25 06:00 02/13/25 08:00 Temperature 36.4 C 36.8 C Pulse Rate 67 63 75 Respiratory Rate 20 16 Blood Pressure 134/57 L 147/59 H Pulse Oximetry 93 96 Oxygen Delivery 02/13/25 08:07 02/13/25 08:11 Temperature Pulse Rate 71 78 Respiratory Rate Blood Pressure Pulse Oximetry Oxygen Delivery Intake/Output Intake/Output: Intake & Output 02/10/25 02/11/25 02/12/25 02/13/25 23:59 23:59 23:59 23:59 Intake Total 2610 2048.3 1611.3 600 Output Total 1310 200 Balance 1300 2048.3 1611.3 400 Meds/Results Medications: Active Medications Generic Name Dose Route Start Last Admin Trade Name Freq PRN Reason Stop Dose Admin Hydrocodone Bitart/Acetaminophen 1 tab 02/07/25 17:30 02/12/25 14:21 Hydrocodone/Acetaminophen (*Crx) 5-325 Mg Tablet PO 1 tab Q4H PRN Administration Pain Rated 4-6 Amiodarone HCl 200 mg 02/12/25 21:00 02/13/25 08:07 Amiodarone Hcl 200 Mg Tablet PO 200 mg Q12HR JAZ Administration Carbidopa/Levodopa 1 tablet 02/05/25 09:00 02/13/25 08:05 Carbidopa/Levodopa 25/100 Mg Tablet PO 1 tablet QID JAZ Administration Carbidopa/Levodopa 1 tablet 02/05/25 09:00 02/13/25 08:04 Carbidopa/Levodopa 12.5/50 Mg Tablet PO 1 tablet QID JAZ Administration Diltiazem HCl 240 mg 02/12/25 09:00 02/13/25 08:07 Diltiazem Hcl Cd 240 Mg Cap.24hr PO 240 mg QAM JAZ Administration Escitalopram Oxalate 20 mg 02/05/25 09:00 02/13/25 08:07 Escitalopram Oxalate 10 Mg Tablet PO 20 mg DAILY JAZ Administration Hydromorphone HCl 0.5 mg 02/04/25 17:00 02/08/25 09:01 Hydromorphone Hcl Inj (*Crx) 1 Mg/Ml Syr IV PUSH 0.5 mg Q4H PRN Administration Pain Rated 7-10 Piperacillin Sod/Tazobactam 50 mls @ 100 mls/hr 02/12/25 18:00 02/13/25 05:57 Sod 3.375 gm/ Sodium Chloride IVPB 100 mls/hr Q6H JAZ Administration Levalbuterol HCl 1.25 mg 02/09/25 13:20 Levalbuterol Neb 1.25 Mg/3 Ml INHALATION Q6HRT PRN Wheezing Lorazepam 0.5 mg 02/06/25 08:14 02/06/25 10:24 Lorazepam (*Crx) 0.5 Mg Tablet PO 0.5 mg Q6H PRN Administration Anxiety Metoprolol Succinate 200 mg 02/05/25 09:00 02/13/25 08:11 Metoprolol Succinate Ext Rel 100 Mg Tabcr PO 200 mg DAILY JAZ Administration Ondansetron HCl 4 mg 02/04/25 17:00 Ondansetron Inj 4 Mg/2 Ml Vial IV PUSH Q4H PRN Nausea Perflutren Lipid Microsphere 0 ml 02/11/25 16:37 Perflutren Lipid Microspheres 1.5 Ml Vial Diluted To 10 Ml Total Volume IV PUSH 02/14/25 16:38 ONCE PRN adequate visualization Protocol Polyethylene Glycol 17 gm 02/08/25 16:55 02/09/25 08:29 Polyethylene Glycol 3350 17 Gm Powd.Pack PO 17 gm QAM PRN Administration Constipation Rivaroxaban 20 mg 02/08/25 17:00 02/12/25 18:38 Rivaroxaban 20 Mg Tablet PO 20 mg Q24H JAZ Administration Radiology Results: ITS Impressions Abdomen/Pelvis CT 02/04/25 15:44 IMPRESSION: 1. Likely hemorrhagic cholecystitis with intraluminal active contrast extravasation and both intraluminal and pericholecystic hemorrhage. 2. Diverticulosis. Abdomen Ultrasound 02/05/25 11:43 IMPRESSION: 1. Gallbladder slightly dilated and filled with probable hemorrhage. Underlying lesion cannot be excluded. 2. Probable cholecystitis. MRCP 02/06/25 11:59 IMPRESSION: 1. T1 hyperintense likely blood within and surrounding the gallbladder consistent with likely hemorrhagic cholecystitis. No evident cholelithiasis/choledocholithiasis or biliary ductal dilation. 2. Small right and very small left pleural effusions with dependent atelectasis in the bilateral lower lobes. 3. Cardiomegaly. Abdomen X-Ray 02/08/25 17:29 IMPRESSION: 1. Postsurgical changes of cholecystectomy. No radiographic evidence of mechanical bowel obstruction. 2. Severe scoliosis. Chest X-Ray 02/12/25 12:07 Impression: CHF. Superimposed probable pneumonia. The findings appear improved compared to the previous study Abdomen CT 02/12/25 15:12 IMPRESSION: 1. Limited noncontrast examination is not optimal to evaluate vascular structures and solid viscera. 2. Postsurgical changes of recent cholecystectomy. Ill-defined 4 to 5 cm size collection of fluid at the surgical bed, likely representing postsurgical seroma. No evidence of well-circumscribed abscess. No free fluid or free air in the upper peritoneal cavity. 3. Moderate size right pleural effusion. Labs Labs: Laboratory Results - last 24 hr 02/13/25 03:42 WBC 8.6 RBC 3.41 L Hgb 10.3 L Hct 32.6 L MCV 95.6 MCH 30.2 MCHC 31.6 L RDW 15.6 H Plt Count 311 MPV 9.2 Immature Gran % (Auto) 0.5 Neut % (Auto) 58.9 Lymph % (Auto) 26.3 [place] % (Auto) 8.4 Eos % (Auto) 5.2 H Baso % (Auto) 0.7 Lymph # (Auto) 2.27 [place] # (Auto) 0.7 H Eos # (Auto) 0.5 H Baso # (Auto) 0.1 Abs Immat Gran (auto) 0.04 H Absolute Neuts (auto) 5.1 Absolute Nucleated RBC 0.000 Nucleated RBC % 0.0 Sodium 133 L Potassium 3.9 Chloride 101 Carbon Dioxide 31 H Anion Gap 1 L BUN 14 Creatinine 0.71 Estim Creat Clear Calc 73 Estimated GFR > 60 Glucose 99 Calcium 8.3 L Magnesium 2.0 Total Bilirubin 0.8 AST 29 ALT 6 Alkaline Phosphatase 113 Total Protein 5.9 L Albumin 2.9 L
--- NOTE | 2025-02-13 13:04 | P.PNIM_ITS ---
Progress Note: A&P Assessment and Plan (1) Acute hemorrhagic cholecystitis: Code(s): K81.0 - Acute cholecystitis Status: Acute Assessment and Plan: -Abdomen/Pelvis CT 02/04/25 15:44 IMPRESSION: 1. Likely hemorrhagic cholecystitis with intraluminal active contrast extravasation and both intraluminal and pericholecystic hemorrhage. 2. Diverticulosis. -surgery has been consulted. -the patient has a history of AFib and has been on Xarelto which has been discontinued -status post cholecystectomy 02/07 -continue Zosyn. -continue with pain management -diet as per surgery. -blood culture negative (2) Elevated troponin: Code(s): R79.89 - Other specified abnormal findings of blood chemistry Status: Acute Assessment and Plan: -her initial troponin was mildly elevated but has been negative for the last 2. (3) Hypertension: Code(s): I10 - Essential (primary) hypertension Status: Acute Assessment and Plan: -continue with metoprolol if blood pressure allows. (4) Atrial fibrillation: Code(s): I48.91 - Unspecified atrial fibrillation Status: Acute Assessment and Plan: -heart rate is controlled at this time. And she is in sinus rhythm. -continue with metoprolol if blood pressure allows. -Xarelto was on hold due to hemorrhagic cholecystitis. -surgery agrees and restarted on Xarelto -Continue metoprolol 200mg, and Diltiazem 240mg per cardiology -Intermittent AFib with RVR Switched to p.o. amiodarone. (5) Hyperlipidemia: Code(s): E78.5 - Hyperlipidemia, unspecified Status: Acute Assessment and Plan: -resume atorvastatin when able. (6) Parkinson's disease: Code(s): G20.A1 - Parkinson's disease without dyskinesia, without mention of fluctuations Status: Acute Assessment and Plan: -continue with carbidopa levodopa (7) Obstructive sleep apnea: Code(s): G47.33 - Obstructive sleep apnea (adult) (pediatric) Status: Acute Assessment and Plan: -auto titrate to home settings. Subjective Date/time seen: 02/13/25 13:04 Interval history: Patient was seen during the morning rounds today. Patient is gradually getting better. Pain control. No shortness of breath or chest pain. Review of Systems Review of Systems: All systems reviewed & are unremarkable except as noted in HPI and below Constitutional: Constitutional: Reports as per HPI and Reports no additional constitutional complaints Eyes: Eyes: Reports as per HPI and Reports no additional eye complaints ENT: Reports system reviewed and no additional complaints, except as documented and Reports Normal hearing present Cardiovascular: Cardiovascular: Reports no additional cardiovascular complaints Respiratory: Respiratory: Reports as per HPI and Reports no additional respiratory complaints Gastrointestinal: Gastrointestinal: Reports as per HPI and Reports no additional gastrointestinal complaints Genitourinary: Genitourinary: Reports no additional female genitourinary complaints Musculoskeletal: Musculoskeletal: Reports no additional musculoskeletal complaints Integumentary/Breasts: Skin/Breast: Reports system reviewed and no additional complaints, except as docu Neurologic: Reports system reviewed and no additional complaints, except as documented and Reports Normal hearing present Psychiatric: Psychiatric: Reports no additional psychiatric complaints and Reports as per HPI Hematologic/Lymphatic: Hematologic/Lymphatic: Reports no additional hematologic/lymphatic complaints Allergic/Immunologic: Allergic/Immunologic: Reports no additional allergic/immunologic complaints Exam Narrative: General appearance: Well-developed, well-nourished Skin: Normal color Head: Normocephalic, nontraumatic Neck: Supple, nontender Chest and respiratory: Airway patent, no respiratory distress, no accessory muscle use Heart: Regular rate/rhythm Abdomen: Soft, mild incisional tenderness. Nondistended Vascular: Normal peripheral pulses, normal capillary refill. Musculoskeletal: Normal range of motion, nontender back Neurologic: Alert and oriented ?3, FEATHER WASHER is normal as tested, no gross motor deficit Const: General: cooperative, healthy appearing, comfortable, no acute d istress, well developed, awake, Physically active, average body habitus and well nourished Nutritional Appearance: average body habitus and well nourished Orientation/consciousness: oriented to person, oriented to place, oriented to time and patient oriented x3 Limitations: no limitations HENMT: Head: normal to inspection, No palpable skull fracture present, normocephalic, atraumatic and abrasion Ears: hearing grossly normal bilateral ly and external ears normal Eyes: General: appearance normal, both eyes and all related structures Alignment and Position: alignment normal Periorbital: periorbital findings normal Eyelids: eyelids normal Pupils: Equal, round and reactive pupils present EOM: EOMs intact bilaterally Neck: Neck: normal visual inspection and full ROM Chest: Chest palpation & inspection: normal inspection of the chest Resp: Effort & Inspection: normal respiratory effort Auscultation: clear to auscultation bilaterally Cardio: Palpation: normal PMI Rate: regular rate Rhythm: regular rhythm Heart sounds: S1 normal heart sound present and S2 normal heart sound present Peripheral pulses: Peripheral pulses 2+ throughout GI: Inspection: normal to inspection Skin: General skin exam: normal color Lesions: no lesions Rashes: no rashes Trauma: no lacerations or abrasions Wounds: no wounds Hair: normal Nails: normal Neuro: General: oriented to person, oriented to place, oriented to time and patient oriented x3 Cranial nerves: Yes Equal, round and reactive pupils present and Yes Normal hearing present Cognition (Neuro): normal cognition Speech: normal speech Motor exam (neuro): 5/5 motor strength present throughout Sensory Exam: normal sensation Extrem: General: normal to inspection Right upper extremity: normal to inspection and shoulder/upper arm Left upper extremity: normal to inspection and shoulder/upper arm Right lower extremity: normal to inspection Left lower extremity: normal to inspection Psych: Appearance: grossly normal Mental Status: mental status grossly normal Speech and movement: Normal speech and movement present Affect: normal affect Attitude: cooperative Thought process: Normal thought process present Insight: Good insight present (Psych) Judgement: Good judgement present (Psych) Objective Data Vital Signs Vital Signs: Vital Signs - 24 hr 02/12/25 14:00 02/12/25 14:03 02/12/25 16:00 Temperature Pulse Rate 68 68 Respiratory Rate Blood Pressure Pulse Oximetry Oxygen Delivery Room Air 02/12/25 16:00 02/12/25 16:08 02/12/25 18:00 Temperature 36.8 C Pulse Rate 72 67 73 Respiratory Rate 20 Blood Pressure 106/48 L Pulse Oximetry 97 Oxygen Delivery 02/12/25 20:00 02/12/25 21:03 02/12/25 21:08 Temperature 36.7 C Pulse Rate 62 63 88 Respiratory Rate 20 Blood Pressure 105/49 L Pulse Oximetry 95 Oxygen Delivery 02/12/25 22:00 02/12/25 22:24 02/13/25 00:00 Temperature Pulse Rate 70 74 68 Respiratory Rate Blood Pressure Pulse Oximetry 95 Oxygen Delivery Autopap 02/13/25 00:38 02/13/25 01:58 02/13/25 02:00 Temperature 36.8 C Pulse Rate 70 76 71 Respiratory Rate 20 Blood Pressure 120/56 L Pulse Oximetry 98 4 L Oxygen Delivery Autopap 02/13/25 04:00 02/13/25 05:15 02/13/25 06:00 Temperature 36.4 C Pulse Rate 64 67 63 Respiratory Rate 20 Blood Pressure 134/57 L Pulse Oximetry 93 Oxygen Delivery 02/13/25 08:00 02/13/25 08:00 02/13/25 08:00 Temperature 36.8 C Pulse Rate 75 78 Respiratory Rate 16 Blood Pressure 147/59 H Pulse Oximetry 96 Oxygen Delivery Room Air 02/13/25 08:07 02/13/25 08:11 02/13/25 11:49 Temperature 36.8 C Pulse Rate 71 78 71 Respiratory Rate 14 Blood Pressure 105/54 L Pulse Oximetry 97 Oxygen Delivery Intake/Output Intake/Output: Intake & Output 02/10/25 02/11/25 02/12/25 02/13/25 23:59 23:59 23:59 23:59 Intake Total 2610 2048.3 1611.3 890 Output Total 1310 500 Balance 1300 2048.3 1611.3 390 Meds/Results Medications: Active Medications Generic Name Dose Route Start Last Admin Trade Name Freq PRN Reason Stop Dose Admin Hydrocodone Bitart/Acetaminophen 1 tab 02/07/25 17:30 02/12/25 14:21 Hydrocodone/Acetaminophen (*Crx) 5-325 Mg Tablet PO 1 tab Q4H PRN Administration Pain Rated 4-6 Amiodarone HCl 200 mg 02/12/25 21:00 02/13/25 08:07 Amiodarone Hcl 200 Mg Tablet PO 200 mg Q12HR JAZ Administration Carbidopa/Levodopa 1 tablet 02/05/25 09:00 02/13/25 08:05 Carbidopa/Levodopa 25/100 Mg Tablet PO 1 tablet QID JAZ Administration Carbidopa/Levodopa 1 tablet 02/05/25 09:00 02/13/25 08:04 Carbidopa/Levodopa 12.5/50 Mg Tablet PO 1 tablet QID JAZ Administration Diltiazem HCl 240 mg 02/12/25 09:00 02/13/25 08:07 Diltiazem Hcl Cd 240 Mg Cap.24hr PO 240 mg QAM JAZ Administration Escitalopram Oxalate 20 mg 02/05/25 09:00 02/13/25 08:07 Escitalopram Oxalate 10 Mg Tablet PO 20 mg DAILY JAZ Administration Hydromorphone HCl 0.5 mg 02/04/25 17:00 02/08/25 09:01 Hydromorphone Hcl Inj (*Crx) 1 Mg/Ml Syr IV PUSH 0.5 mg Q4H PRN Administration Pain Rated 7-10 Piperacillin Sod/Tazobactam 50 mls @ 100 mls/hr 02/12/25 18:00 02/13/25 11:59 Sod 3.375 gm/ Sodium Chloride IVPB Infused Q6H JAZ Infusion Levalbuterol HCl 1.25 mg 02/09/25 13:20 Levalbuterol Neb 1.25 Mg/3 Ml INHALATION Q6HRT PRN Wheezing Lorazepam 0.5 mg 02/06/25 08:14 02/06/25 10:24 Lorazepam (*Crx) 0.5 Mg Tablet PO 0.5 mg Q6H PRN Administration Anxiety Metoprolol Succinate 200 mg 02/05/25 09:00 02/13/25 08:11 Metoprolol Succinate Ext Rel 100 Mg Tabcr PO 200 mg DAILY JAZ Administration Ondansetron HCl 4 mg 02/04/25 17:00 Ondansetron Inj 4 Mg/2 Ml Vial IV PUSH Q4H PRN Nausea Perflutren Lipid Microsphere 0 ml 02/11/25 16:37 Perflutren Lipid Microspheres 1.5 Ml Vial Diluted To 10 Ml Total Volume IV PUSH 02/14/25 16:38 ONCE PRN adequate visualization Protocol Polyethylene Glycol 17 gm 02/08/25 16:55 02/09/25 08:29 Polyethylene Glycol 3350 17 Gm Powd.Pack PO 17 gm QAM PRN Administration Constipation Rivaroxaban 20 mg 02/08/25 17:00 02/12/25 18:38 Rivaroxaban 20 Mg Tablet PO 20 mg Q24H JAZ Administration Radiology Results: ITS Impressions Abdomen/Pelvis CT 02/04/25 15:44 IMPRESSION: 1. Likely hemorrhagic cholecystitis with intraluminal active contrast extravasation and both intraluminal and pericholecystic hemorrhage. 2. Diverticulosis. Abdomen Ultrasound 02/05/25 11:43 IMPRESSION: 1. Gallbladder slightly dilated and filled with probable hemorrhage. Underlying lesion cannot be excluded. 2. Probable cholecystitis. MRCP 02/06/25 11:59 IMPRESSION: 1. T1 hyperintense likely blood within and surrounding the gallbladder consistent with likely hemorrhagic cholecystitis. No evident cholelithiasis/choledocholithiasis or biliary ductal dilation. 2. Small right and very small left pleural effusions with dependent atelectasis in the bilateral lower lobes. 3. Cardiomegaly. Abdomen X-Ray 02/08/25 17:29 IMPRESSION: 1. Postsurgical changes of cholecystectomy. No radiographic evidence of mechanical bowel obstruction. 2. Severe scoliosis. Chest X-Ray 02/12/25 12:07 Impression: CHF. Superimposed probable pneumonia. The findings appear improved compared to the previous study Abdomen CT 02/12/25 15:12 IMPRESSION: 1. Limited noncontrast examination is not optimal to evaluate vascular structures and solid viscera. 2. Postsurgical changes of recent cholecystectomy. Ill-defined 4 to 5 cm size collection of fluid at the surgical bed, likely representing postsurgical seroma. No evidence of well-circumscribed abscess. No free fluid or free air in the upper peritoneal cavity. 3. Moderate size right pleural effusion. Labs Labs: Laboratory Results - last 24 hr 02/13/25 03:42 WBC 8.6 RBC 3.41 L Hgb 10.3 L Hct 32.6 L MCV 95.6 MCH 30.2 MCHC 31.6 L RDW 15.6 H Plt Count 311 MPV 9.2 Immature Gran % (Auto) 0.5 Neut % (Auto) 58.9 Lymph % (Auto) 26.3 [place] % (Auto) 8.4 Eos % (Auto) 5.2 H Baso % (Auto) 0.7 Lymph # (Auto) 2.27 [place] # (Auto) 0.7 H Eos # (Auto) 0.5 H Baso # (Auto) 0.1 Abs Immat Gran (auto) 0.04 H Absolute Neuts (auto) 5.1 Absolute Nucleated RBC 0.000 Nucleated RBC % 0.0 Sodium 133 L Potassium 3.9 Chloride 101 Carbon Dioxide 31 H Anion Gap 1 L BUN 14 Creatinine 0.71 Estim Creat Clear Calc 73 Estimated GFR > 60 Glucose 99 Calcium 8.3 L Magnesium 2.0 Total Bilirubin 0.8 AST 29 ALT 6 Alkaline Phosphatase 113 Total Protein 5.9 L Albumin 2.9 L Quality VTE Prophylaxis VTE prophylaxis: mechanical ordered
--- NOTE | 2025-02-13 16:57 | PC.NURSE ---
Patient had a nine beat run of v- tach. patient is asymptomatic. Renetta Canales COORDINATOR OF [employer] with cardiology notified. no new orders
[2025-02-13] MEDS: RIVAROXABAN 20 MG TABLET PO (17:24)
[2025-02-14] VITALS (21 sets, daily range): BP systolic 106–128; BP diastolic 49–58; PULSE 67–84; RESP 16–20; TEMP 36.4–36.9; O2SAT 93–98
[2025-02-14] MEDS: PIPERACILLIN/TAZOBACTAM SOD 3.375 GM in SODIUM CHLORIDE 0.9% IV 50 ML 100 ML IVPB ×5 (00:06→23:15)
[2025-02-14] MEDS: METOPROLOL SUCCINATE EXT REL 100 MG TABCR 200 MG PO (09:12)
[2025-02-14] MEDS: CARBIDOPA/LEVODOPA 12.5/50 MG TABLET 1 TABLET PO ×4 (09:12→20:12)
[2025-02-14] MEDS: dilTIAZem HCL CD 240 MG CAP.24HR PO (09:12)
[2025-02-14] MEDS: ESCITALOPRAM OXALATE 10 MG TABLET 20 MG PO (09:12)
[2025-02-14] MEDS: AMIODARONE HCL 200 MG TABLET PO ×2 (09:12→20:12)
[2025-02-14] MEDS: CARBIDOPA/LEVODOPA 25/100 MG TABLET 1 TABLET PO ×4 (09:13→20:12)
--- NOTE | 2025-02-14 10:15 | P.PNIM_ITS ---
Progress Note: A&P Assessment and Plan (1) Acute hemorrhagic cholecystitis: Code(s): K81.0 - Acute cholecystitis Status: Acute Assessment and Plan: -Abdomen/Pelvis CT 02/04/25 15:44 IMPRESSION: 1. Likely hemorrhagic cholecystitis with intraluminal active contrast extravasation and both intraluminal and pericholecystic hemorrhage. 2. Diverticulosis. -surgery has been consulted. -the patient has a history of AFib and has been on Xarelto which has been discontinued -status post cholecystectomy 02/07 -continue Zosyn. -continue with pain management -diet as per surgery. -blood culture negative (2) Elevated troponin: Code(s): R79.89 - Other specified abnormal findings of blood chemistry Status: Acute Assessment and Plan: -her initial troponin was mildly elevated but has been negative for the last 2. (3) Hypertension: Code(s): I10 - Essential (primary) hypertension Status: Acute Assessment and Plan: -continue with metoprolol if blood pressure allows. (4) Atrial fibrillation: Code(s): I48.91 - Unspecified atrial fibrillation Status: Acute Assessment and Plan: -heart rate is controlled at this time. And she is in sinus rhythm. -continue with metoprolol if blood pressure allows. -Xarelto was on hold due to hemorrhagic cholecystitis. -surgery agrees and restarted on Xarelto -Continue metoprolol 200mg, and Diltiazem 240mg per cardiology -Intermittent AFib with RVR Switched to p.o. amiodarone. (5) Hyperlipidemia: Code(s): E78.5 - Hyperlipidemia, unspecified Status: Acute Assessment and Plan: -resume atorvastatin when able. (6) Parkinson's disease: Code(s): G20.A1 - Parkinson's disease without dyskinesia, without mention of fluctuations Status: Acute Assessment and Plan: -continue with carbidopa levodopa (7) Obstructive sleep apnea: Code(s): G47.33 - Obstructive sleep apnea (adult) (pediatric) Status: Acute Assessment and Plan: -auto titrate to home settings. Subjective Date/time seen: 02/14/25 10:15 Interval history: Patient was seen during the morning rounds today. Patient is feeling much better Pain control. No shortness of breath or chest pain. Review of Systems Review of Systems: All systems reviewed & are unremarkable except as noted in HPI and below Constitutional: Constitutional: Reports as per HPI and Reports no additional constitutional complaints Eyes: Eyes: Reports as per HPI and Reports no additional eye complaints ENT: Reports system reviewed and no additional complaints, except as documented and Reports Normal hearing present Cardiovascular: Cardiovascular: Reports no additional cardiovascular complaints Respiratory: Respiratory: Reports as per HPI and Reports no additional respiratory complaints Gastrointestinal: Gastrointestinal: Reports as per HPI and Reports no additional gastrointestinal complaints Genitourinary: Genitourinary: Reports no additional female genitourinary complaints Musculoskeletal: Musculoskeletal: Reports no additional musculoskeletal complaints Integumentary/Breasts: Skin/Breast: Reports system reviewed and no additional complaints, except as docu Neurologic: Reports system reviewed and no additional complaints, except as documented and Reports Normal hearing present Psychiatric: Psychiatric: Reports no additional psychiatric complaints and Reports as per HPI Hematologic/Lymphatic: Hematologic/Lymphatic: Reports no additional hematologic/lymphatic complaints Allergic/Immunologic: Allergic/Immunologic: Reports no additional allergic/immunologic complaints Exam Narrative: General appearance: Well-developed, well-nourished Skin: Normal color Head: Normocephalic, nontraumatic Neck: Supple, nontender Chest and respiratory: Airway patent, no respiratory distress, no accessory muscle use Heart: Regular rate/rhythm Abdomen: Soft, mild incisional tenderness. Nondistended Vascular: Normal peripheral pulses, normal capillary refill. Musculoskeletal: Normal range of motion, nontender back Neurologic: Alert and oriented ?3, INNOVATION MANAGER is normal as tested, no gross motor deficit Const: General: cooperative, healthy appearing, comfortable, no acute distres s, well developed, awake, Physically active, average body habitus and well nourished Nutritional Appearance: average body habitus and well nourished Orientation/consciousness: oriented to person, oriented to place, oriented to time and patient oriented x3 Limitations: no limitations HENMT: Head: normal to inspection, No palpable skull fracture present, normocephalic, atraumatic and abrasion Ears: hearing grossly normal bilaterally and external ears normal Eyes: General: appearance normal, both eyes and all related structures Alignment and Position: alignment normal Periorbital: periorbital findings normal Eyelids: eyelids normal Pupils: Equal, round and reactive pupils present EOM: EOMs intact bilaterally Neck: Neck: normal visual inspection and full ROM Chest: Chest palpation & inspection: normal inspection of the chest Resp: Effort & Inspection: normal respiratory effort Auscultation: clear to auscultation bilaterally Cardio: Palpation: normal PMI Rate: regular rate Rhythm: regular rhythm Heart sounds: S1 normal heart sound present and S2 normal heart sound present Peripheral pulses: Peripheral pulses 2+ throughout GI: Inspection: normal to inspection Skin: General skin exam: normal color Lesions: no lesions Rashes: no rashes Trauma: no lacerations or abrasions Wounds: no wounds Hair: normal Nails: normal Neuro: General: oriented to person, oriented to place, oriented to time and patient oriented x3 Cranial nerves: Yes Equal, round and reactive pupils present and Yes Normal hearing present Cognition (Neuro): normal cognition Speech: normal speech Motor exam (neuro): 5/5 motor strength present throughout Sensory Exam: normal sensation Extrem: General: normal to inspection Right upper extremity: normal to inspection and shoulder/upper arm Left upper extremity: normal to inspection and shoulder/upper arm Right lower extremity: normal to inspection Left lower extremity: normal to inspection Psych: Appearance: grossly normal Mental Status: mental status grossly nor mal Speech and movement: Normal speech and movement present Affect: normal affect Attitude: cooperative Thought process: Normal thought process present Insight: Good insight present (Psych) Judgement: Good judgement present (Psych) Objective Data Vital Signs Vital Signs: Vital Signs - 24 hr 02/13/25 11:49 02/13/25 12:00 02/13/25 12:00 Temperature 36.8 C Pulse Rate 71 70 Respiratory Rate 14 Blood Pressure 105/54 L Pulse Oximetry 97 Oxygen Delivery Room Air 02/13/25 16:00 02/13/25 16:00 02/13/25 16:00 Temperature 36.6 C Pulse Rate 69 64 Respiratory Rate 18 Blood Pressure 125/54 L Pulse Oximetry 98 Oxygen Delivery Room Air 02/13/25 18:00 02/13/25 20:00 02/13/25 20:41 Temperature Pulse Rate 64 71 73 Respiratory Rate Blood Pressure Pulse Oximetry Oxygen Delivery 02/13/25 20:47 02/13/25 22:00 02/13/25 23:23 Temperature 36.5 C Pulse Rate 72 71 79 Respiratory Rate 16 Blood Pressure 127/57 L Pulse Oximetry 97 92 Oxygen Delivery Autopap 02/14/25 00:00 02/14/25 00:32 02/14/25 02:00 Temperature 36.6 C Pulse Rate 77 76 73 Respiratory Rate 16 Blood Pressure 127/52 L Pulse Oximetry 98 Oxygen Delivery 02/14/25 02:31 02/14/25 04:00 02/14/25 04:23 Temperature 36.4 C Pulse Rate 70 67 77 Respiratory Rate 18 Blood Pressure 128/58 L Pulse Oximetry 93 Oxygen Delivery Autopap 02/14/25 06:00 02/14/25 08:00 02/14/25 09:12 Temperature 36.7 C Pulse Rate 68 74 84 Respiratory Rate 18 Blood Pressure 127/51 L Pulse Oximetry 95 Oxygen Delivery 02/14/25 09:12 02/14/25 09:24 02/14/25 09:32 Temperature Pulse Rate 84 76 Respiratory Rate Blood Pressure Pulse Oximetry Oxygen Delivery Room Air 02/14/25 10:00 Temperature Pulse Rate 73 Respiratory Rate Blood Pressure Pulse Oximetry Oxygen Delivery Intake/Output Intake/Output: Intake & Output 02/11/25 02/12/25 02/13/25 02/14/25 23:59 23:59 23:59 23:59 Intake Total 2048.3 1611.3 1720 470 Output Total 500 Balance 2048.3 1611.3 1220 470 Meds/Results Medications: Active Medications Generic Name Dose Route Start Last Admin Trade Name Freq PRN Reason Stop Dose Admin Hydrocodone Bitart/Acetaminophen 1 tab 02/07/25 17:30 02/12/25 14:21 Hydrocodone/Acetaminophen (*Crx) 5-325 Mg Tablet PO 1 tab Q4H PRN Administration Pain Rated 4-6 Amiodarone HCl 200 mg 02/12/25 21:00 02/14/25 09:12 Amiodarone Hcl 200 Mg Tablet PO 200 mg Q12HR JAZ Administration Carbidopa/Levodopa 1 tablet 02/05/25 09:00 02/14/25 09:13 Carbidopa/Levodopa 25/100 Mg Tablet PO 1 tablet QID JAZ Administration Carbidopa/Levodopa 1 tablet 02/05/25 09:00 02/14/25 09:12 Carbidopa/Levodopa 12.5/50 Mg Tablet PO 1 tablet QID JAZ Administration Diltiazem HCl 240 mg 02/12/25 09:00 02/14/25 09:12 Diltiazem Hcl Cd 240 Mg Cap.24hr PO 240 mg QAM JAZ Administration Escitalopram Oxalate 20 mg 02/05/25 09:00 02/14/25 09:12 Escitalopram Oxalate 10 Mg Tablet PO 20 mg DAILY JAZ Administration Hydromorphone HCl 0.5 mg 02/04/25 17:00 02/08/25 09:01 Hydromorphone Hcl Inj (*Crx) 1 Mg/Ml Syr IV PUSH 0.5 mg Q4H PRN Administration Pain Rated 7-10 Piperacillin Sod/Tazobactam 50 mls @ 100 mls/hr 02/12/25 18:00 02/14/25 05:53 Sod 3.375 gm/ Sodium Chloride IVPB 100 mls/hr Q6H JAZ Administration Levalbuterol HCl 1.25 mg 02/09/25 13:20 Levalbuterol Neb 1.25 Mg/3 Ml INHALATION Q6HRT PRN Wheezing Lidocaine HCl 1 applic 02/13/25 13:03 Lidocaine 4% Soln 50 Ml Btl TOPICAL PRN PRN Pain Lorazepam 0.5 mg 02/06/25 08:14 02/06/25 10:24 Lorazepam (*Crx) 0.5 Mg Tablet PO 0.5 mg Q6H PRN Administration Anxiety Metoprolol Succinate 200 mg 02/05/25 09:00 02/14/25 09:12 Metoprolol Succinate Ext Rel 100 Mg Tabcr PO 200 mg DAILY JAZ Administration Ondansetron HCl 4 mg 02/04/25 17:00 Ondansetron Inj 4 Mg/2 Ml Vial IV PUSH Q4H PRN Nausea Perflutren Lipid Microsphere 0 ml 02/11/25 16:37 Perflutren Lipid Microspheres 1.5 Ml Vial Diluted To 10 Ml Total Volume IV PUSH 02/14/25 16:38 ONCE PRN adequate visualization Protocol Polyethylene Glycol 17 gm 02/08/25 16:55 02/09/25 08:29 Polyethylene Glycol 3350 17 Gm Powd.Pack PO 17 gm QAM PRN Administration Constipation Rivaroxaban 20 mg 02/08/25 17:00 02/13/25 17:24 Rivaroxaban 20 Mg Tablet PO 20 mg Q24H JAZ Administration Radiology Results: ITS Impressions Abdomen/Pelvis CT 02/04/25 15:44 IMPRESSION: 1. Likely hemorrhagic cholecystitis with intraluminal active contrast extravasation and both intraluminal and pericholecystic hemorrhage. 2. Diverticulosis. Abdomen Ultrasound 02/05/25 11:43 IMPRESSION: 1. Gallbladder slightly dilated and filled with probable hemorrhage. Underlying lesion cannot be excluded. 2. Probable cholecystitis. MRCP 02/06/25 11:59 IMPRESSION: 1. T1 hyperintense likely blood within and surrounding the gallbladder consistent with likely hemorrhagic cholecystitis. No evident cholel ithiasis/choledocholithiasis or biliary ductal dilation. 2. Small right and very small left pleural effusions with dependent atelectasis in the bilateral lower lobes. 3. Cardiomegaly. Abdomen X-Ray 02/08/25 17:29 IMPRESSION: 1. Postsurgical changes of cholecystectomy. No radiographic evidence of mechanical bowel obstruction. 2. Severe scoliosis. Chest X-Ray 02/12/25 12:07 Impression: CHF. Superimposed probable pneumonia. The findings appear improved compared to the previous study Abdomen CT 02/12/25 15:12 IMPRESSION: 1. Limited noncontrast examination is not optimal to evaluate vascular structures and solid viscera. 2. Postsurgical changes of recent cholecystectomy. Ill-defined 4 to 5 cm size collection of fluid at the surgical bed, likely representing postsurgical seroma. No evidence of well-circumscribed abscess. No free fluid or free air in the upper peritoneal cavity. 3. Moderate size right pleural effusion. Quality VTE Prophylaxis VTE prophylaxis: mechanical ordered
[2025-02-14] MEDS: RIVAROXABAN 20 MG TABLET PO (17:32)
[2025-02-15] VITALS (10 sets, daily range): BP systolic 122–129; BP diastolic 48–52; PULSE 67–86; RESP 18–20; TEMP 36.1–36.6; O2SAT 93–96
[2025-02-15] MEDS: PIPERACILLIN/TAZOBACTAM SOD 3.375 GM in SODIUM CHLORIDE 0.9% IV 50 ML 100 ML IVPB (05:34)
[2025-02-15] MEDS: dilTIAZem HCL CD 240 MG CAP.24HR PO (08:09)
[2025-02-15] MEDS: CARBIDOPA/LEVODOPA 25/100 MG TABLET 1 TABLET PO ×2 (08:09→12:44)
[2025-02-15] MEDS: AMIODARONE HCL 200 MG TABLET PO (08:09)
[2025-02-15] MEDS: CARBIDOPA/LEVODOPA 12.5/50 MG TABLET 1 TABLET PO ×2 (08:09→12:44)
[2025-02-15] MEDS: ESCITALOPRAM OXALATE 10 MG TABLET 20 MG PO (08:10)
[2025-02-15] MEDS: METOPROLOL SUCCINATE EXT REL 100 MG TABCR 200 MG PO (08:10)
--- NOTE | 2025-02-15 09:20 | P.DS_ITS ---
DS: Admitting Diagnosis Discharge Date 02/15/2025 Admitting Diagnosis Acute hemorrhagic cholecystitis DS: Discharge Diagnosis Discharge Diagnosis (1) Acute hemorrhagic cholecystitis: Code(s): K81.0 - Acute cholecystitis Status: Acute Assessment and Plan: -Abdomen/Pelvis CT 02/04/25 15:44 IMPRESSION: 1. Likely hemorrhagic cholecystitis with intraluminal active contrast extravasation and both intraluminal and pericholecystic hemorrhage. 2. Diverticulosis. -surgery has been consulted. -the patient has a history of AFib and has been on Xarelto which has been discontinued -status post cholecystectomy 02/07 -continue Zosyn. -continue with pain management -diet as per surgery. -blood culture negative (2) Elevated troponin: Code(s): R79.89 - Other specified abnormal findings of blood chemistry Status: Acute Assessment and Plan: -her initial troponin was mildly elevated but has been negative for the last 2. (3) Hypertension: Code(s): I10 - Essential (primary) hypertension Status: Acute Assessment and Plan: -continue with metoprolol if blood pressure allows. (4) Atrial fibrillation: Code(s): I48.91 - Unspecified atrial fibrillation Status: Acute Assessment and Plan: -heart rate is controlled at this time. And she is in sinus rhythm. -continue with metoprolol if blood pressure allows. -Xarelto was on hold due to hemorrhagic cholecystitis. -surgery agrees and restarted on Xarelto -Continue metoprolol 200mg, and Diltiazem 240mg per cardiology -Intermittent AFib with RVR Switched to p.o. amiodarone. (5) Hyperlipidemia: Code(s): E78.5 - Hyperlipidemia, unspecified Status: Acute Assessment and Plan: -resume atorvastatin when able. (6) Parkinson's disease: Code(s): G20.A1 - Parkinson's disease without dyskinesia, without mention of fluctuations Status: Acute Assessment and Plan: -continue with carbidopa levodopa (7) Obstructive sleep apnea: Code(s): G47.33 - Obstructive sleep apnea (adult) (pediatric) Status: Acute Assessment and Plan: -auto titrate to home settings. DS: Summary Hospital Course Reason for hospitalization: Acute hemorrhagic cholecystitis. Hospital Course: 74 years old female was admitted with abdominal pain. Patient was diagnosed with acute hemorrhagic cholecystitis. Patient history of atrial fibrillation. Surgery was consulted surgical intervention was done. Patient had no complication in the stay in the hospital. Patient atrial fibrillation was controlled with the medication. Patient home medications were continued. Today patient is feeling better and was discharged home in stable condition. Patient was to follow-up with primary care physician and surgeon in [place] in [place] Status at Discharge Cognitive/behavioral status at discharge: Stable Time Spent with Patient Time attestation: Total time spent providing and/or coordinating discharge services: 30 minutes Exam Narrative: General appearance: Well-developed, well-nourished Skin: Normal color Head: Normocephalic, nontraumatic Neck: Supple, nontender Chest and respiratory: Airway patent, no respiratory distress, no accessory muscle use Heart: Regular rate/rhythm Abdomen: Soft, mild incisional tenderness. Nondistended Vascular: Normal peripheral pulses, normal capillary refill. Musculoskeletal: Normal range of motion, nontender back Neurologic: Alert and oriented ?3, RADIO INTERFERENCE EXPERT is normal as tested, no gross motor def icit Const: General: cooperative, healthy appearing, comfortable, no acute distress, well developed, awake, Physically active, average body habitus and well nourished Nutritional Appearance: average body habitus and well nourished Orientation/consciousness: oriented to person, oriented to place, oriented to time and patient oriented x3 Limitations: no limitations HENMT: Head: normal to inspection, No palpable skull fracture present, normocephalic, atraumatic and abrasion Ears: hearing grossly normal bilaterally and external ears normal Eyes: General: appearance normal, both eyes and all related structures Alignment and Position: alignment normal Periorbital: periorbital findings normal Eyelids: eyelids normal Pupils: Equal, round and reactive pupils present EOM: EOMs intact bilaterally Neck: Neck: normal visual inspection and full ROM Chest: Chest palpation & inspection: normal inspection of the chest Resp: Effort & Inspection: normal respiratory effort Auscultation: clear to auscultation bilaterally Cardio: Palpation: normal PMI Rate: regular rate Rhythm: regular rhythm Heart sounds: S1 normal heart sound present and S2 normal heart sound present Peripheral pulses: Peripheral pulses 2+ throughout GI: Inspection: normal to inspection Skin: General skin exam: normal color Lesions: no lesions Rashes: no rashes Trauma: no lacerations or abrasions Wounds: no wounds Hair: normal Nails: normal Neuro: General: oriented to person, oriented to place, oriented to time and patient oriented x3 Cranial nerves: Yes Equal, round and reactive pupils present and Yes Normal hearing present Cognition (Neuro): normal cognition Speech: normal speech Motor exam (neuro): 5/5 motor strength present throughout Sensory Exam: normal sensation Extrem: General: normal to inspection Right upper extremity: normal to inspection and shoulder/upper arm Left upper extremity: normal to inspection and shoulder/upper arm Right lower extremity: normal to inspection Left lower extremity: normal to inspection Psych: Appearance: grossly normal Mental Status: mental status grossly normal Speech and movement: Normal speech and movement present Affect: normal affect Attitude: cooperative Thought process: Normal thought proces s present Insight: Good insight present (Psych) Judgement: Good judgement present (Psych) DS: Data Data Completed and Pending Completed studies during hospitalization: Pending at discharge 02/07/25 15:54 Surgical [PTH] Routine Discharge Plan Discharge Attending physician on discharge: Darwin Stapleton Consulting providers: Italia Galarza; Barbara German; Mikaela Riojas Discharging Clinician: Darwin Stapleton Patient Disposition: Home Activity: may shower and as tolerated Diet: as tolerated Wound Care Instructions: incision open to air Discharge Instructions: DISCHARGE INSTRUCTION SHEET FOR HERNIA, GALLBLADDER AND APPENDIX SURGERIES DR. GALARZA PATIENT TO TAKE HOME 1. May shower in 24 hours, no soaking in bath x 2weeks. 2. Call office for: * Wound increasingly painful or bleeding * Vomiting * Fever of greater than 101 degrees 3. If no bowel movement for three days, take 1 oz. (30 ml) Milk of Magnesia or MiraLax 17g 1 to 2 times daily. 4. No heavy lifting > 10-15 pounds x 6 weeks for hernia repairs and 2 weeks for laparoscopic cholecystectomy or appendectomy. 5. No driving for 3 days or while taking narcotic pain medications. 6. Ice to surgical site for 48 hours (30 min on, then 30 min off). 7. Up walking 10-30 minutes three times per day. 8. Resume previous home medications. 9. Follow-up 10-14 days in office for wound check or as previously scheduled. ([id number]) 10. Oral pain medications prescription to be sent to pharmacy. Take Tylenol 500mg every 6 hours and Ibuprofen 600mg every 6 hours for the first 2 days, then as needed. 11. NUTRITION: Start out by drinking fluids and increase your diet as tolerated. If you experience nausea, try dry toast, crackers, and 7-UP. If nausea or vomiting persists, contact your surgeon?s office. 12. Gallbladders-Low Fat Diet for 2 weeks (send care note of low fat diet) 13. Inguinal Hernias-wear scrotal support for 48 hours 14. Abdominal Hernias-if sent home with abdominal binder, wear for the first 2 weeks (may remove to shower or at night to sleep). Revised 03/2020 Patient Instructions: Antibiotic Form, Rivaroxaban (By mouth), Heart Failure (GEN) Patient Language: Indonesian Stand Alone Forms: General Discharge Information Follow-up/Referrals: Italia Galarza MD [Physician, General Surgery] - 2 Weeks Discharge Medications: New hydrocodone-acetaminophen 5-325 mg tablet 1 tablet PO Q6H PRN (Reason: pain) Qty: 20 0RF amiodarone [Pacerone] 200 mg Tablet 200 mg PO Q12HR Qty: 60 0RF amoxicillin-pot clavulanate [Augmentin] 500-125 mg tablet 1 tablet PO Q12H Qty: 14 0RF polyethylene glycol 3350 [Miralax] 17 gram Powder In Packet 17 g PO QAM PRN (Reason: Constipation) Qty: 30 0RF Continued diltiazem HCl 120 mg tablet 120 mg PO DAILY Qty: 30 0RF escitalopram oxalate 20 mg tablet 20 mg PO DAILY Qty: 30 0RF atorvastatin 10 mg tablet 10 mg PO DAILY Qty: 30 0RF carbidopa-levodopa 25-100 mg tablet 1.5 tablet PO QID Qty: 120 0RF methylphenidate HCl 36 mg tablet extended release 24hr 36 mg PO .every morning Qty: 30 0RF metoprolol succinate 200 mg tablet extended release 24 hr 200 mg PO DAILY Qty: 30 0RF Xarelto 20 mg tablet 20 mg PO Q24H Qty: 30 0RF cholecalciferol (vitamin D3) [D3 DOTS] 50 mcg (2,000 unit) tablet 2,000 unit PO DAILY Qty: 30 0RF Centrum Women 18-400 mg-mcg tablet 1 tablet PO DAILY Qty: 30 0RF Date of admission: 02/04/25 17:00 Primary Care Provider: Demetrius Rausch Admitting Provider: Gaston Perry Attending physician on admission: Gaston Perry Condition: Stable Quality VTE Prophylaxis VTE prophylaxis: mechanical ordered
== END 2025-02-15 14:58 | disposition home or self-care (01) | DRG 410 ==
LOC: ANHED 18:43 → ANHIMU 18:49 → ANH2MED 02-09 15:10 → ANHIMU 02-11 18:31
PROVIDERS: General Practice; Internal Medicine; Nurse Practitioner; Nurse Practitioner Family; Surgery; Admitting Provider Internal Medicine; Emergency Provider Emergency Medicine; Visit Provider Internal Medicine
PROC: 0FT44ZZ Resection of Gallbladder, Percutaneous Endoscopic Approach (ICD-10-PCS; CPT 47562; principal; 2025-02-07 16:00)
DX: K81.0 Acute cholecystitis (principal); D69.9 Hemorrhagic condition, unspecified; K82.A1 Gangrene of gallbladder in cholecystitis; K57.90 Diverticulosis of intestine, part unspecified, without perforation or abscess without bleeding; Z90.49 Acquired absence of other specified parts of digestive tract; E87.6 Hypokalemia; E78.5 Hyperlipidemia, unspecified; F32.A Depression, unspecified; G47.33 Obstructive sleep apnea (adult) (pediatric); G20.A1 Parkinson's disease without dyskinesia, without mention of fluctuations; I10 Essential (primary) hypertension; I48.0 Paroxysmal atrial fibrillation; R09.02 Hypoxemia; R79.89 Other specified abnormal findings of blood chemistry; Z79.01 Long term (current) use of anticoagulants; Z96.643 Presence of artificial hip joint, bilateral; Z96.653 Presence of artificial knee joint, bilateral
CPT/HCPCS: 36415; 71045; 74018; 74150; 74177; 74183; 76376; 76705; 80048; 80053; 80076; 82565; 83605; 83690; 83735; 83880; 84145; 84484; 85025; 85027; 85610; 85730; 86850; 86900; 86901; 87040; 87045; 87046; 87086; 87427; 88304; 93005; 93306; 94640; 96361; 96365; 96375; 96376; 97110; 97116; 97161; 97165; 97530; 97535; 99285; A9270; A9577; J0283; J1100; J1171; J1938; J2003; J2405; J2543; J2704; J3010; J3480; J7030; J7120; Q9967